=== PATIENT | male | born 1965 | race Caucasian/White ===

== ENCOUNTER 2020-05-10 10:13 | Outpatient (REF) | payer OTHER, SELFPAY ==
[2020-05-10 10:28] LABS: MANUAL DIFF FLAG NO
[2020-05-10 10:54] LABS: Basophils Percent Auto 0.5 % (0-2); Eosinophils Absolute Auto 0.3 X10*3/uL (0.0-0.4); Eosinophils Percent Auto 3.3 % (0-4); Hematocrit 43.9 % (42-52); Hemoglobin 14.2 g/dl (14.0-18.0); Imm Gran Abs Auto 0.02 X10*3/uL (0.00-0.03); Imm Gran Pct Auto 0.3 % (0.0-0.4); Lymphocytes Absolute Auto 2.5 X10*3/uL (1.2-4.9); Mean Corpuscular HGB Conc 32.3 g/dl (31.0-36.0); Mean Corpuscular Volume 92.8 fL (80-98); Mean Platelet Volume 10.1 fL (9.4-12.4); Monocytes Absolute Auto 0.8 X10*3/uL (0.1-1.2); Monocytes Percent Auto 10.7 % (2-11); Neutrophils Percent Auto 52.2 % (45-73); Platelet Count 195 X10*3/uL (160-400); Red Blood Count 4.73 X10*6/uL (4.60-5.80); Red Cell Distribution Width 13.3 % (11.0-16.0); White Blood Count 7.6 X10*3/uL (4.8-10.8)
[2020-05-10 11:15] LABS: Glucose Urine UA NEG (NEG); Leukocyte Esterase Urine NEG (NEG); Nitrite Urine NEG (NEG); PH 6.5 (5.0-8.0); Urine Blood TRACE (NEG); Urine Ketones NEG (NEG); Urine Protein NEG (NEG-TRACE)
[2020-05-10 11:18] LABS: Appearance Urine CLEAR; Color Urine YELLOW
[2020-05-10 11:21] LABS: Alanine Aminotransferase 26 U/L (0-40); Albumin Level 4.2 g/dL (3.5-5.0); Alkaline Phosphatase 56 U/L (39-117); Anion Gap 10 (12-20); Aspartate Amino Transferase 23 U/L (5-37); Bilirubin Total 1.4 mg/dL (0.0-1.0); Blood Urea Nitrogen 15 mg/dL (9-16); Calcium 9.3 mg/dL (8.4-10.2); Carbon Dioxide 33 mmol/L (22-29); Chloride 103 mmol/L (96-108); Cholesterol 190 mg/dL; Estimated Glomerular Filt Rate > 60; Glucose Fasting 78 mg/dL (60-99); HDL Cholesterol 49 mg/dL; LDL Cholesterol Calculated 117 mg/dl; Potassium 3.5 mmol/L (3.3-5.1); Sodium 142 mmol/L (135-145); Total Protein 6.7 g/dL (6.5-8.0); Triglycerides 123 mg/dL
[2020-05-10 11:42] LABS: PSA,Total (Free>4and<10) 1.49 ng/mL (0.00-4.00)
[2020-05-10 11:54] LABS: Mucus Urine 1+ /LPF; RBC Urine 0-2 /HPF (0); WBC Urine 0 /HPF (0-4)
== END 2020-05-10 10:14 | disposition home or self-care (01) ==
LOC: HO.LNP 10:13
PROVIDERS: Visit Provider Internal Medicine
DX: Z00.00 Encounter for general adult medical examination without abnormal findings (principal); I10 Essential (primary) hypertension
CPT/HCPCS: 80053; 80061; 81001; 81003; 84153; 85025

== ENCOUNTER 2021-04-10 06:27 | Day surgery (SDC) | payer OTHER, SELFPAY ==
[2021-04-03 15:35] VITALS: BMI 38.1
--- NOTE | 2021-04-07 12:52 | HO.ANESPROP2 ---
Documented by User: Doreen Raza NP 04/07/21 12:53 HPI - Anesthesia Eval Consult details Narrative: 55yo M for Colonoscopy Prednisone daily Stable with pulmo 03/2021 [facility] Past Medical History Medical History Eosinophilic fasciitis GERD (gastroesophageal reflux disease) HTN (hypertension) Hx of pulmonary fibrosis Surgical History Surgical History H/O colonoscopy History of esophagogastroduodenoscopy (EGD) History of incision and drainage Hx of cystoscopy Hx of hand surgery Hx of left inguinal hernia repair Social History Social History Patient Tobacco Use Status: Never used Tobacco Use of substances other than those prescribed or required for medical reasons: No Advance Directives: No Advance Directives Information Provided: Yes Advance Directives on File: No Meds Allergies Allergy/AdvReac Type Severity Reaction Status Date / Time morphine [MORPHINE] Allergy Severe SEVERE Verified 04/10/21 07:13 VOMITING gabapentin [GABAPENTIN] AdvReac Intermediate VISUAL Verified 04/10/21 07:13 DISTURBANCES Home Medications Medication Instructions Recorded Confirmed Last Taken Type hydroxychloroquine 200 mg tablet 200 mg PO DAILY 04/03/21 04/10/21 Unknown History (Plaquenil) irbesartan 300 1 tab PO DAILY 04/03/21 04/10/21 Unknown History mg-hydrochlorothiazide 12.5 mg tablet (Avalide) multivitamin 1 tab PO DAILY 04/03/21 04/10/21 04/09/21 History prednisone 1 mg tablet 3 mg PO DAILY 04/03/21 04/10/21 Unknown History prednisone 5 mg tablet 5 mg PO DAILY 04/03/21 04/03/21 Unknown History methylprednisolone 4 mg tablet 2 tab PO 04/10/21 04/09/21 History Exam Exam Date and Time: April 07, 2021 1252 Height,Weight and Vital Signs: Height 6 ft 1 in Weight 131.088 kg Assessment and Plan Assessment Anesthesia Assessment: Chart Reviewed Documented by User: Ben Ambrose 04/10/21 07:35 [facility] Past Medical History Medical History Eosinophilic fasciitis GERD (gastroesophageal reflux disease) HTN (hypertension) Hx of pulmonary fibrosis Family History Family history of problems with anesthesia: No Surgical History Surgical History H/O colonoscopy History of esophagogastroduodenoscopy (EGD) History of incision and drainage Hx of cystoscopy Hx of hand surgery Hx of left inguinal hernia repair History of Problems with Anesthesia: Yes (Ponv ) Social History Social History Patient Tobacco Use Status: Never used Tobacco Use of substances other than those prescribed or required for medical reasons: No Advance Directives: No Advance Directives Information Provided: Yes Advance Directives on File: No Meds Allergies Allergy/AdvReac Type Severity Reaction Status Date / Time morphine [MORPHINE] Allergy Severe SEVERE Verified 04/10/21 07:13 VOMITING gabapentin [GABAPENTIN] AdvReac Intermediate VISUAL Verified 04/10/21 07:13 DISTURBANCES Home Medications Medication Instructions Recorded Confirmed Last Taken Type hydroxychloroquine 200 mg tablet 200 mg PO DAILY 04/03/21 04/10/21 Unknown History (Plaquenil) irbesartan 300 1 tab PO DAILY 04/03/21 04/10/21 Unknown History mg-hydrochlorothiazide 12.5 mg tablet (Avalide) multivitamin 1 tab PO DAILY 04/03/21 04/10/21 04/09/21 History prednisone 1 mg tablet 3 mg PO DAILY 04/03/21 04/10/21 Unknown History prednisone 5 mg tablet 5 mg PO DAILY 04/03/21 04/03/21 Unknown History methylprednisolone 4 mg tablet 2 tab PO 04/10/21 04/09/21 History Exam Airway Mallampati Class: IV TM Dist: >3cm Neck ROM: Full Loose/Missing/Broken Teeth: Yes (Caps ) Assessment and Plan Assessment Anesthesia Assessment: Anesthesia Plan Discussed Final Anesthetic Review Family History of Problems with Anesthesia: No History of Problems with Anesthesia: Yes (Ponv ) NPO: Yes ASA Class: III Final Preanesthetic Review: Meds/Allgs Chart Reviewed and Anes Risks/Benef Reviewed Patient Risk: Intermediate Procedure Risk: Intermediate Anesthetic Plan Anesthetic Plan: MAC: Disposition: Standard PACU
[2021-04-10 06:45] VITALS: BP 142/91; PULSE 70; RESP 18; TEMP 36.2; O2SAT 98
[2021-04-10] MEDS: Lactated Ringers 1,000 ML 100 ML IVCONT (07:13)
--- NOTE | 2021-04-10 08:29 | PM.OP ---
Brief Operative Note Date of Service: 04/10/21 Pre-op diagnosis: Screening Post-op diagnosis: other (Colon polyps) Procedure: Colonoscopy to the cecum and TI with bx/removal of polyps Surgeon: Mejia Gardner Anesthesia: MAC Was an Spool Sorter used for this Procedure?: No Estimated blood loss (mL): 2.0 Pathology: other (A. Transverse colon polyps) Condition: stable Disposition: PACU
[2021-04-10 08:30] VITALS: BP 122/72; PULSE 59; RESP 17; TEMP 36.8; O2SAT 98
[2021-04-10 08:45] VITALS: BP 130/72; PULSE 63; RESP 16; TEMP 36.8; O2SAT 98
--- NOTE | 2021-04-10 10:00 | OP_ITS ---
SURGEON: Mejia Gardner MD INDICATIONS: The patient presents for evaluation of colorectal cancer screening and personal history of tubular adenoma of the colon. Full consent has been obtained from him for this, including risks of bleeding and perforation. PREOPERATIVE DIAGNOSIS: POSTOPERATIVE DIAGNOSIS: PROCEDURE PERFORMED: Colonoscopy to cecum and terminal ileum with biopsy and removal of polyps. ESTIMATED BLOOD LOSS: COMPLICATIONS: ANESTHESIA: medication used, monitored anesthesia care. ASSISTANTS: SPECIMENS: PREOPERATIVE DIAGNOSES: Colorectal cancer screening and personal history of tubular adenoma of the colon. POSTOPERATIVE DIAGNOSES: Colorectal cancer screening and personal history of tubular adenoma of the colon, small colon polyps, diverticulosis, and internal hemorrhoids. DESCRIPTION OF PROCEDURE: The patient was placed in the left lateral decubitus position the digital rectal exam revealed no abnormalities. The Olympus video pediatric colonoscope was entered into the rectum and advanced easily to the cecum. Once in the cecum I did identify normal-appearing cecal pouch with appendiceal orifice and a normal-appearing ileocecal valve. The terminal ileum was cannulated and appeared normal. The scope was withdrawn back in the colon. The entire cecum and ileocecal valve appeared normal. The scope was slowly withdrawn assessing all mucosal surfaces carefully. Preparation was excellent. In the transverse colon were 2 flat approximately 3 or 4 mm polyps, which were each biopsied and completely removed with cold biopsy forceps. I did not visualize any other polyps, colitis, nor angiodysplasia. There was a mild amount of sigmoid diverticulosis. In the rectum, the scope was retroflexed visualizing internal hemorrhoids, but no other pathology. The rectal mucosa appeared normal. The scope was straightened and withdrawn from the patient. He tolerated the procedure well and was returned to the recovery area in stable condition. IMPRESSION: 1. Small colon polyps, status post biopsy and removal. 2. Diverticulosis. 3. Internal hemorrhoids. PLAN: The results of biopsy will be checked. I would recommend a repeat colonoscopy in 5 years for further screening. He will otherwise see me on a p.r.n. basis. MD ZABRINA Livingston/JUAN M / [phone]
== END 2021-04-10 09:12 | disposition home or self-care (01) ==
PROVIDERS: PCP Internal Medicine; Visit Provider Internal Medicine
PROC: 0DJD8ZZ Inspection of Lower Intestinal Tract, Via Natural or Artificial Opening Endoscopic (ICD-10-PCS; CPT 45378; principal; 2021-04-10 07:30)
DX: Z12.11 Encounter for screening for malignant neoplasm of colon (principal); Z86.010 Personal history of colon polyps; D12.3 Benign neoplasm of transverse colon; K57.30 Diverticulosis of large intestine without perforation or abscess without bleeding; K64.8 Other hemorrhoids; K21.9 Gastro-esophageal reflux disease without esophagitis; J84.10 Pulmonary fibrosis, unspecified; I10 Essential (primary) hypertension; M35.4 Diffuse (eosinophilic) fasciitis; Z79.52 Long term (current) use of systemic steroids; Z79.899 Other long term (current) drug therapy; Z88.8 Allergy status to other drugs, medicaments and biological substances
CPT/HCPCS: 45380; 88305

== ENCOUNTER 2021-05-18 10:43 | Outpatient (REF) | payer OTHER, SELFPAY ==
[2021-05-18 10:47] LABS: MANUAL DIFF FLAG NO
[2021-05-18 11:28] LABS: Appearance Urine CLEAR; Basophils Percent Auto 0.4 % (0-2); Color Urine YELLOW; Eosinophils Absolute Auto 0.1 X10*3/uL (0.0-0.4); Eosinophils Percent Auto 1.6 % (0-4); Glucose Urine UA NEG (NEG); Hematocrit 44.1 % (42.0-52.0); Hemoglobin 14.5 g/dl (14.0-18.0); Imm Gran Abs Auto 0.03 X10*3/uL (0.00-0.03); Imm Gran Pct Auto 0.4 % (0.0-0.4); Leukocyte Esterase Urine NEG (NEG); Lymphocytes Absolute Auto 1.8 X10*3/uL (1.2-4.9); Lymphocytes Percent Auto 22.9 % (20-40); Mean Corpuscular HGB Conc 32.9 g/dl (31.0-36.0); Mean Corpuscular Hemoglobin 30.6 pg (27.0-33.0); Mean Platelet Volume 10.6 fL (9.4-12.4); Monocytes Absolute Auto 0.8 X10*3/uL (0.1-1.2); Monocytes Percent Auto 10.6 % (2-11); Neutrophils Absolute Auto 5.1 x10*3/uL (2.0-8.3); Neutrophils Percent Auto 64.1 % (45-73); Nitrite Urine NEG (NEG); Platelet Count 180 X10*3/uL (160-400); Red Blood Count 4.74 X10*6/uL (4.60-5.80); Red Cell Distribution Width 13.6 % (11.0-16.0); Specific Gravity - Urine 1.025 (1.005-1.025); Urine Blood NEG (NEG); Urine Ketones NEG (NEG); Urine Protein NEG (NEG-TRACE); White Blood Count 7.9 X10*3/uL (4.8-10.8)
[2021-05-18 11:56] LABS: Alanine Aminotransferase 30 U/L (0-40); Albumin Level 4.3 g/dL (3.5-5.0); Alkaline Phosphatase 58 U/L (39-117); Anion Gap 14 (12-20); Aspartate Amino Transferase 23 U/L (5-37); Bilirubin Total 1.9 mg/dL (0.0-1.0); Blood Urea Nitrogen 11 mg/dL (9-16); Calcium 9.8 mg/dL (8.4-10.2); Carbon Dioxide 29 mmol/L (22-29); Chloride 103 mmol/L (96-108); Cholesterol 190 mg/dL; Estimated Glomerular Filt Rate > 60; Glucose Random 81 mg/dL (60-115); HDL Cholesterol 50 mg/dL; LDL Cholesterol Calculated 119 mg/dl; Potassium 3.8 mmol/L (3.3-5.1); Sodium 142 mmol/L (135-145); Total Protein 6.8 g/dL (6.5-8.0); Triglycerides 108 mg/dL
[2021-05-18 12:03] LABS: PSA,Total (Free>4and<10) 1.17 ng/mL (0.00-4.00)
== END 2021-05-18 10:44 | disposition home or self-care (01) ==
LOC: HO.LNP 10:43
PROVIDERS: Visit Provider Internal Medicine
DX: Z00.00 Encounter for general adult medical examination without abnormal findings (principal); Z12.5 Encounter for screening for malignant neoplasm of prostate; I25.10 Atherosclerotic heart disease of native coronary artery without angina pectoris; I10 Essential (primary) hypertension
CPT/HCPCS: 80053; 80061; 81003; 84153; 85025

== ENCOUNTER 2022-05-22 11:36 | Outpatient (REF) | payer OTHER, SELFPAY ==
[2022-05-22 11:42] LABS: MANUAL DIFF FLAG NO
[2022-05-22 12:01] LABS: Basophils Absolute Auto 0.1 X10*3/uL (0.0-0.2); Basophils Percent Auto 0.6 % (0-2); Eosinophils Absolute Auto 0.2 X10*3/uL (0.0-0.4); Eosinophils Percent Auto 3.1 % (0-4); Hematocrit 44.3 % (42.0-52.0); Hemoglobin 14.5 g/dl (14.0-18.0); Imm Gran Abs Auto 0.03 X10*3/uL (0.00-0.03); Imm Gran Pct Auto 0.4 % (0.0-0.4); Lymphocytes Percent Auto 37.8 % (20-40); Mean Corpuscular HGB Conc 32.7 g/dl (31.0-36.0); Mean Corpuscular Hemoglobin 30.5 pg (27.0-33.0); Mean Corpuscular Volume 93.1 fL (80.0-98.0); Mean Platelet Volume 10.6 fL (9.4-12.4); Monocytes Absolute Auto 0.9 X10*3/uL (0.1-1.2); Monocytes Percent Auto 11.1 % (2-11); Neutrophils Absolute Auto 3.7 x10*3/uL (2.0-8.3); Platelet Count 187 X10*3/uL (160-400); Red Blood Count 4.76 X10*6/uL (4.60-5.80); Red Cell Distribution Width 13.2 % (11.0-16.0); White Blood Count 7.9 X10*3/uL (4.8-10.8)
[2022-05-22 12:09] LABS: Appearance Urine Clear; Color Urine Yellow; Glucose Urine UA Negative (Negative); Leukocyte Esterase Urine Negative (Negative); Nitrite Urine Negative (Negative); Urine Blood Negative (Negative); Urine Ketones Negative (Negative); Urine Protein Negative (Neg-Trace)
[2022-05-22 12:12] LABS: Bacteria Urine None Seen (None Seen); Hyaline Casts Urine 0-2 /LPF (0-2); RBC Urine 0-2 /HPF (0-2); Squamous Epithelial Cell Urine 0-2 /HPF (0-2); WBC Urine 0-5 /HPF (0-5)
[2022-05-22 13:08] LABS: Alanine Aminotransferase 34 U/L (0-40); Albumin Level 4.1 g/dL (3.5-5.0); Alkaline Phosphatase 52 U/L (39-117); Anion Gap 13 (12-20); Aspartate Amino Transferase 26 U/L (5-37); Bilirubin Total 1.9 mg/dL (0.0-1.0); Blood Urea Nitrogen 14 mg/dL (9-16); Calcium 9.1 mg/dL (8.4-10.2); Carbon Dioxide 30 mmol/L (22-29); Chloride 104 mmol/L (96-108); Cholesterol 217 mg/dL; Estimated Glomerular Filt Rate > 60; Glucose Fasting 80 mg/dL (60-99); HDL Cholesterol 51 mg/dL; LDL Cholesterol Calculated 140 mg/dl; Potassium 3.7 mmol/L (3.3-5.1); Sodium 143 mmol/L (135-145); Total Protein 6.4 g/dL (6.5-8.0); Triglycerides 131 mg/dL
[2022-05-22 13:23] LABS: PSA,Total (Free>4and<10) 1.51 ng/mL (0.00-4.00)
== END 2022-05-22 11:37 | disposition home or self-care (01) ==
LOC: HO.LNP 11:36
PROVIDERS: Visit Provider Internal Medicine
DX: Z00.00 Encounter for general adult medical examination without abnormal findings (principal); Z12.5 Encounter for screening for malignant neoplasm of prostate; I10 Essential (primary) hypertension; I25.10 Atherosclerotic heart disease of native coronary artery without angina pectoris
CPT/HCPCS: 80053; 80061; 81001; 84153; 85025

== ENCOUNTER 2022-08-31 12:11 | Outpatient (REF) | payer OTHER, SELFPAY ==
[2022-08-31 12:32] LABS: Alanine Aminotransferase 52 U/L (0-40); Albumin Level 3.2 g/dL (3.5-5.0); Alkaline Phosphatase 56 U/L (39-117); Aspartate Amino Transferase 32 U/L (5-37); Bilirubin Direct 0.4 mg/dL (0.0-0.5); Bilirubin Total 1.4 mg/dL (0.0-1.0); Cholesterol 124 mg/dL; HDL Cholesterol 38 mg/dL; LDL Cholesterol Calculated 70 mg/dl; Triglycerides 80 mg/dL
== END 2022-08-31 12:12 | disposition home or self-care (01) ==
LOC: HO.LNP 12:11
PROVIDERS: Visit Provider Internal Medicine
DX: I25.10 Atherosclerotic heart disease of native coronary artery without angina pectoris (principal)
CPT/HCPCS: 80061; 80076

== ENCOUNTER 2023-03-08 10:13 | Outpatient (REF) | payer OTHER, SELFPAY | END 2023-03-08 10:14 | disposition home or self-care (01) | LOC: HO.LNP 10:13 | PROVIDERS: Visit Provider Internal Medicine | DX: E78.00 Pure hypercholesterolemia, unspecified (principal) | CPT/HCPCS: 80061; 80076 ==

== ENCOUNTER 2023-05-28 10:56 | Outpatient (REF) | payer OTHER, SELFPAY ==
[2023-05-28 11:00] LABS: MANUAL DIFF FLAG NO
[2023-05-28 11:34] LABS: Basophils Percent Auto 0.4 % (0-2); Eosinophils Absolute Auto 0.2 X10*3/uL (0.0-0.4); Eosinophils Percent Auto 2.8 % (0-4); Hematocrit 41.5 % (42.0-52.0); Hemoglobin 13.9 g/dl (14.0-18.0); Imm Gran Abs Auto 0.02 X10*3/uL (0.00-0.03); Imm Gran Pct Auto 0.3 % (0.0-0.4); Lymphocytes Absolute Auto 2.1 X10*3/uL (1.2-4.9); Lymphocytes Percent Auto 27.2 % (20-40); Mean Corpuscular HGB Conc 33.5 g/dl (31.0-36.0); Mean Corpuscular Hemoglobin 30.7 pg (27.0-33.0); Mean Corpuscular Volume 91.6 fL (80.0-98.0); Mean Platelet Volume 10.6 fL (9.4-12.4); Monocytes Absolute Auto 0.9 X10*3/uL (0.1-1.2); Monocytes Percent Auto 11.3 % (2-11); Neutrophils Absolute Auto 4.5 x10*3/uL (2.0-8.3); Platelet Count 179 X10*3/uL (160-400); Red Blood Count 4.53 X10*6/uL (4.60-5.80); Red Cell Distribution Width 13.1 % (11.0-16.0); White Blood Count 7.8 X10*3/uL (4.8-10.8)
[2023-05-28 11:39] LABS: Appearance Urine Clear; Color Urine Yellow; Glucose Urine UA Negative (Negative); Leukocyte Esterase Urine Negative (Negative); Nitrite Urine Negative (Negative); Urine Blood Negative (Negative); Urine Ketones Negative (Negative); Urine Protein Negative (Neg-Trace)
[2023-05-28 11:42] LABS: Alanine Aminotransferase 27 U/L (0-40); Alkaline Phosphatase 61 U/L (39-117); Anion Gap 13 (12-20); Aspartate Amino Transferase 25 U/L (5-37); Bilirubin Total 1.6 mg/dL (0.0-1.0); Blood Urea Nitrogen 16 mg/dL (9-16); Calcium 9.7 mg/dL (8.4-10.2); Carbon Dioxide 32 mmol/L (22-29); Chloride 103 mmol/L (96-108); Cholesterol 149 mg/dL (<200); Estimated Glomerular Filt Rate > 60; Glucose Fasting 81 mg/dL (60-99); HDL Cholesterol 54 mg/dL (>40); LDL Cholesterol Calculated 76 mg/dL (<100); Potassium 3.5 mmol/L (3.3-5.1); Sodium 144 mmol/L (135-145); Total Protein 6.6 g/dL (6.5-8.0); Triglycerides 98 mg/dL (<150)
[2023-05-28 11:44] LABS: Bacteria Urine None Seen (None Seen); Hyaline Casts Urine 0-2 /LPF (0-2); RBC Urine 0-2 /HPF (0-2); Squamous Epithelial Cell Urine 0-2 /HPF (0-2); WBC Urine 0-5 /HPF (0-5)
[2023-05-28 11:57] LABS: PSA,Total (Free>4and<10) 1.46 ng/mL (0.00-4.00)
== END 2023-05-28 10:57 | disposition home or self-care (01) ==
LOC: HO.LNP 10:56
PROVIDERS: Visit Provider Internal Medicine
DX: Z12.5 Encounter for screening for malignant neoplasm of prostate (principal); I10 Essential (primary) hypertension; I25.10 Atherosclerotic heart disease of native coronary artery without angina pectoris; E78.00 Pure hypercholesterolemia, unspecified
CPT/HCPCS: 80053; 80061; 81001; 84153; 85025

== ENCOUNTER 2023-12-05 11:29 | Outpatient (REF) | payer OTHER, SELFPAY ==
[2023-12-05 12:33] LABS: Alanine Aminotransferase 32 U/L (0-40); Albumin Level 4.1 g/dL (3.5-5.0); Alkaline Phosphatase 52 U/L (39-117); Aspartate Amino Transferase 27 U/L (5-37); Bilirubin Direct 0.5 mg/dL (0.0-0.5); Bilirubin Total 1.8 mg/dL (0.0-1.0); Cholesterol 143 mg/dL (<200); HDL Cholesterol 55 mg/dL (>40); LDL Cholesterol Calculated 67 mg/dL (<100); Total Protein 6.8 g/dL (6.5-8.0); Triglycerides 106 mg/dL (<150)
[2023-12-05 12:57] LABS: Reflex LDLD? No
== END 2023-12-05 11:30 | disposition home or self-care (01) ==
LOC: HO.LNP 11:29
PROVIDERS: Visit Provider Internal Medicine
DX: E78.00 Pure hypercholesterolemia, unspecified (principal)
CPT/HCPCS: 80061; 80076

== ENCOUNTER 2024-04-21 09:51 | Outpatient (REF) | payer OTHER, SELFPAY ==
--- OUTSIDE RECORDS SUMMARY | 2024-04-21 10:35 | XMS_ITS | Clinical Summary ---
Author Organization [facility] Address [address] [place] [address] Phone Care Team Providers Care Fuel Cell Builder Name Role Phone Javed Gonzales MD Primary Care Provider Unav ailable Allergies Active Allergy Reactions Criticality Noted Date Comments Cyclobenzaprine 08/06/2023 Other reaction(s): Blurry vision Gabapentin 11/23/2021 Other reaction(s): Blurry vision Iodinated Contrast Media Unknown 03/11/2012 Morphine Sulfate 03/11/2012 Pregabalin 07/09/2017 Other reaction(s): Blurry vision Had difficulty focusing and seeing well Had difficulty focusing and seeing well Medications CALCIUM CARBONATE-VITAM IN D3 ORAL Take 1 Tablet by mouth. Active multivitamin (MULTIPLE VITAMINS ORAL) Take 1 capsule by mouth. Active valsartan-hydro CHLOROthiazide (DIOVAN-HCT) 320-12.5 mg per tablet Diovan HCT 320-12.5 MG Oral Tablet TAKE 1 TABLET ONCE DAILY. Refills: 0 Started -Nov-2008 Active 11/02/2008 Active atorvastatin (LIPITOR) 40 mg tablet Take 1 Tablet by mouth daily. Active aliskiren-hydro chlorothiazide 300-12.5 mg tablet Take by mouth. Active hydroxychloroqu ine (PLAQUENIL) 200 mg tablet Take 200 mg by mouth daily. Active methylPREDNISol one (MEDROL) 8 mg tablet Take 8 mg by mouth daily. Active Pain Relief ES, acetaminophen, 500 mg tablet TAKE 2 TABLETS BY MOUTH EVERY 8 HOURS NEEDED FOR MODERATE PAIN SCALE 4-6 2023 Active albuterol HFA (Ventolin HFA) 90 mcg/actuation inhaler 2 puffs every 6 hours. 03/15/2017 Active calcium carbonate 1,500 mg (600 mg elemental calcium) tablet 1 (one) time each day at the same time. Active doxycycline hyclate (VIBRA-TABS) 100 mg tablet Take 1 tablet (100 mg total) by mouth 2 times daily. 08/05/2017 Active Valium 2 mg tablet 1 tablet (2 mg total) every 12 hours. Max Daily Amount: 4 mg 07/04/2023 Active fluconazole (Diflucan) 150 mg tablet 2 tablets (300 mg total). 12/21/2019 Active ibuprofen (ADVIL,MOTRIN) 800 mg tablet 1 tablet (800 mg total) every 8 hours. 06/23/2013 Active irbesartan-hydr oCHLOROthiazide (Avalide) 300-12.5 mg per tablet Take 1 tablet by mouth. 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 Pain of right calf 04/07/2015 Edema of left lower extremity 10/05/2014 IPF (idiopathic pulmonary fibrosis) 03/16/2013 Hypertension 12/13/2008 Morphea 12/13/2008 Open wound of shoulder region 12/13/2008 Pneumonia 12/13/2008 Vitamin D deficiency 11/04/2008 Fasciitis 11/02/2008 Immunizations Name Administration Dates Next Due Influenza Quadrivalent, 0.5m l, preservative free (Fluarix; FluLaval; Fluzone) ages 6mo and older (Afluria) 3yo and older 12/13/2022 Influenza trivalent, 0.5mL, preservative free (Fluarix; FluLaval; Fluzone) ages 6mo and older (Afluria) 3 years and older 12/23/2001,02/10/2001,01/24/1999,12/18 Pneumococcal polysaccharide 23 valent (Pneumovax 23) 2yo and older 06/25/1995 Surgical History Surgery Date Site/Laterality Comments OTHER SURGICAL HISTORY PROCEDURE: HISTORICAL ARM SURGERY; COMMENT: right arm Medical History Medical History Date Comments HTN (hypertension) DX:HTN (hyper tension) Social History Tobacco Use Types Packs/Day Years Used Date Smoking Tobacco: Never Smokeless Tobacco: Never Alcohol Use Standard Drinks/Week Comments Yes 0.8 (1 standard drink = 0.6 oz p ure alcohol) Sex and Gender Information Value Date Recorded Sex Assigned at Not on file Legal Sex Male 3:04 AM EST Gender Identity Not on file Sexual Orientation Not on file Obstetrics History Last Filed Vital Signs Vital Sign Reading Time Taken Comments Blood Pressure 137/71 04/12/2023 8:53 AM EST Pulse 67 04/12/2023 8:53 AM EST Temperature - - Respiratory Rate - - Oxygen Saturation - - Inhaled Oxygen Concentration - - Weight 135 kg (298 lb) 09/17/2023 10:15 AM EDT Height 188 cm (6' 2 ) 09/17/2023 10:15 AM EDT Body Mass Index 38.26 09/17/2023 10:15 AM EDT Plan of Treatment Health Maintenance Due Date Last Done Comments DTaP,Tdap,and Td Vaccines (1 - Tdap) 1984 Hepatitis B Vaccines (1 of 3 - 19+ 3-dose series) 1984 Pneumococcal Vaccine: 50+ Years (2 of 2 - PCV) 06/24/1996 06/25/1995 Pneumococcal Vaccine: Pediatrics (0 to 5 Years) and At-Risk Patients (6 to 64 Years) (2 of 2 - PCV) 06/24/1996 06/25/1995 Zoster Vaccines (1 of 2) 05/11/2015 COVID-19 Vaccine (3 - Moderna risk series) 06/21/2020 05/24/2020, 04/26/2020 Cholesterol Screening (Lipid Panel) 02/04/2022 Colorectal Cancer Screening: Colonoscopy 02/04/2022 Depression Screening 02/04/2022 HIV Screening 02/04/2022 Hepatitis C Screening 02/04/2022 Social Influencers of Health Screening 02/04/2022 Influenza Vaccine (#1) 2023 , 12/23/2001, 02/10/2001, Additional history exists Hypertension/CHF/CAD Annual BMP Blood Test 01/06/2024 12/13/2022, 12/13/2022 HIB Vaccines Aged Out No longer eligi ble based on patient's age to complete this topic HPV Vaccines Aged Out No longer eligi ble based on patient's age to complete this topic Hepatitis A Vaccines Aged Out No long er eligible based on patient's age to complete this topic IPV Vaccines Aged Out No longer eligi ble based on patient's age to complete this topic MMR Vaccines Aged Out No longer eligi ble based on patient's age to complete this topic Meningococcal ACWY Vaccine Aged Out N o longer eligible based on patient's age to complete this topic Meningococcal B Vacine Aged Out No lo nger eligible based on patient's age to complete this topic RSV Immunization Patients Under 20 months Aged Out No longer eligible based on patient's age to complete this topic Varicella Vaccines Aged Out No longer eligible based on patient's age to complete this topic Procedures Procedure Name Priority Date/Time Associated Diagnosis Comments ANNUAL BMP BLOOD TEST Routine 12/13/2022 from Last 3 Months or Most Recently Relevant to Health Maintenance Results * Annual BMP Blood Test (12/13/2022) Annual BMP Blood Test Abstracted Historical Provider MD HEALTH MAINTENANCE Final Result from Last 3 Months or Most Recently Relevant to Health Maintenance Insurance [facility] [employer] Advance Directives Documents on File Type Date Recorded Patient Cytology Laboratory Manager Expl anation Health Care Decision (hx) 12/26/2020 AD SCOTT DIRECTIVE Health Care Decision (hx) 12/26/2020 AD SCOTT DIRECTIVE Health Care Decision (hx) 12/26/2020 AD SCOTT DIRECTIVE Health Care Decision (hx) 12/26/2020 AD SCOTT DIRECTIVE Health Care Decision (hx) 12/26/2020 AD SCOTT DIRECTIVE Health Care Decision (hx) 12/26/2020 AD SCOTT DIRECTIVE Health Care Decision (hx) 12/26/2020 AD SCOTT DIRECTIVE Health Care Decision (hx) 12/26/2020 AD SCOTT DIRECTIVE Care Teams Fuel Cell Builder Relationship Specialty Start Date End Date Javed Gonzales MD [address] [place] [address] PCP - General Internal Medicine 03/11/12
--- OUTSIDE RECORDS SUMMARY | 2024-04-21 10:35 | XMS_ITS | Clinical Summary ---
Author Organization [facility] Address [address] [place] [address] Care Team Providers Care Night Clerk Name Role Phone Javed Gonzales Primary Care Provider [phone] Allergies Active Allergy Reactions Criticality Noted Date Comments Cyclobenzaprine Blurry vision Dye Unknown 03/11/2012 Gabapentin Blurry vision 11/23/2021 Morphine Dermatitis,Headache 04/17/2017 Turn martin and very sick SKIN ANOMALY NEC Pregabalin Blurry vision 07/09/2017 Had difficulty focusing and seeing well Medications valsartan-hydr ochlorothiazid e (DIOVAN-HCT) 320-12.5 mg per tablet Diovan HCT 320-12.5 MG Oral Tablet TAKE 1 TABLET ONCE DAILY. Refills: 0 Started -Nov-2008 Active 9 Active calcium carbonate-heidi min D3 600 mg(1,500mg) -200 unit per tablet Take 1 tablet by mouth 2 times a day, 2 times a week. Active multivitamin capsule Take 1 capsule by mouth daily. Active atorvastatin (LIPITOR) 40 mg tablet Take 20 mg by mouth once a day. 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 Olecranon bursitis, left elbow 03/11/2017 residential current use of systemic steroids 10/12 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 Pain of right calf 04/07/2015 Edema of left lower extremity 10/05/2014 IPF (idiopathic pulmonary fibrosis) 03/16/2013 Open Wound Of The Shoulder 12/13/2008 Hypertension 12/13/2008 Morphea 12/13/2008 Pneumonia 12/13/2008 Vitamin d deficiency 11/04/2008 Fasciitis 11/02/2008 Encounters Date Type Department Care Team Description 03/29/2024 Refill [facility] [address] [place] [address] Electronic Bench Technician: Kam Gutiérrez DO from Last 3 Months Immunizations Immunization Administration Dates Next Due INFLUENZA, SPLIT VIRUS, TRIVALENT, PF ,02/10/2001,01/24/1999,12/18 Influenza, Injectable, Quadr ivalent, Preservative Free 12/13/2022 Pneumococcal Polysaccharide Vaccine, 23 Valent 06/25/1995 Family History Medical History Relation Name Comments Other Brother Family History of seizures Other Father Family History of lung cancer Other Mother Family History of lung cancer Other Paternal Grandmother Family History of rheumatoid arthritis Relation Name Status Comments Brother Father Mother Paternal Grandmother Social History Tobacco Use Types Packs/Day Years Used Date Smoking Tobacco: Never Passive Smoke Exposure: Never Smokeless Tobacco: Never Tobacco Cessation:Counseling Given: Not Answered Comments:: Alcohol Use Standard Drinks/Week Comments Not Currently 0 (1 standard drink = 0.6 oz pur e alcohol) Sex and Gender Information Value Date Recorded Sex Assigned at Male 03/12/2022 5:45 AM EST Legal Sex Male 7:17 AM EDT Gender Identity Male 03/12/2022 5:45 AM EST Sexual Orientation Straight 03/12/2022 5: 45 AM EST Last Filed Vital Signs Vital Sign Reading Time Taken Comments Blood Pressure 133/85 12/31/2023 4:20 PM EDT Pulse 71 12/31/2023 4:20 PM EDT Temperature 36.4 ??C (97.6 ??F) 12/31/2023 4:20 PM ED T Respiratory Rate - - Oxygen Saturation 95% 10/26/2013 2:59 PM EDT Inhaled Oxygen Concentration - - Weight 132 kg (291 lb) 12/31/2023 4:20 PM EDT Height 188 cm (6' 2 ) 12/31/2023 4:20 PM EDT Body Mass Index 37.36 12/31/2023 4:20 PM EDT Plan of Treatment Upcoming Encounters Date Type Department Care Team (Late st Contact Info) Description 07/03/2024 11:20 AM EDT Office Visit [facility] [address] [place] [address] Electronic Bench Technician: Kam Gutiérrez DO [address] [facility] Rheumtology [place], [place] [id number] Health Maintenance Due Date Last Done Comments Cologuard 1965 Colon Cancer Screening 1965 Colonoscopy 1965 FOBT / Fit Test 1965 HIV Screening 1965 Hepatitis C Screening 1965 Sigmoidoscopy 1965 Hepatitis B Vaccines (1 of 3 - 19+ 3-dose series) 1984 Pneumococcal Vaccine: 50+ Ye ars (2 of 2 - PCV) 04/13/2020 04/13/2019, 06/25/1995 Pneumococcal Vaccine: Pediat jose c (0-5 Years) and At-Risk Patients (6-50 Years) (2 of 2 - PCV) 04/13/2020 04/13/2019, 06/25/1995 Basic Metabolic Panel 12/14/2023 12/13/2022, 018 DTaP,Tdap,and Td Vaccines (2 - Tdap) 02/05/2024 02/04/2014 Alcohol/Substance Use Screening 03/04/2024 Depression Screening and Follow-Up 03/04/2024 Social Drivers of Health Maya ual Screening 03/04/2024 RSV Vaccine (60+ years old a nd patients) (1 - 1-dose 75+ series) 2040 Zoster Vaccines Completed 12/28/2022, 09/14/2022 COVID-19 Vaccine Completed 11/16/2023, , 12/01/2022, Additional history exists Influenza Vaccine Completed 11/16/2023, , 11/23/2021, Additional history exists Procedures * Due to [facility] law, this organization might not be sharing negative HIV tests. Procedure Name Priority Date/Time Associated Diagnosis Comments BASIC METABOLIC PANEL Routine 12/13/2022 10:02 AM EDT Diffuse fasciitis from Last 3 Months or Most Recently Relevant to Health Maintenance Results * Due to [employer] law, this organization might not be sharing negative HIV tests. * (ABNORMAL) Basic Metabolic Panel (12/13/2022 10:02 AM EDT) NA 141 135 - 145 mmol/L 12/13/2022 11:20 AM EDT [facility] K 3.6 3.5 - 5.3 mmol/L 12/13/2022 11:20 AM EDT [facility] Cl 103 97 - 110 mmol/L 12/13/2022 11:20 AM EDT [facility] CO2 33(H) 24 - 32 mmol/L 12/13/2022 11:20 AM EDT [facility] BUN 13 7 - 23 mg/dL 12/13/2022 11:20 AM EDT [facility] Creatinine 0.68 0.60 - 1.30 mg/dL 12/13/2022 11:20 AM EDT [facility] Glucose 78 70 - 99 mg/dL 12/13/2022 11:20 AM EDT [facility] Calcium 9.5 8.7 - 10.7 mg/dL 12/13/2022 11:20 AM EDT [facility] Anion Gap 5 5 - 15 12/13/2022 11:20 AM EDT [facility] eGFR >90 >=60 mL/min/1. 73m2 12/13/2022 11:20 AM EDT [facility] Comment:The estimated glomer ular filtration rate (eGFR) is calculated using a new formula developed by the NKF-ASN task force to eliminate race-based correction factors. The new formula uses serum/plasma creatinine, age, and gender to determine eGFR. A value below 60mls/min might indicate kidney disease and will be flagged. For additional information, see Shreyas et al, Am J Kidney Dis. 2021;79(2):268- 288, A Unifying Approach for GFR estimation: Recommendations of the NKF-ASN Task Force on Reassessing the Inclusion of Race in Diagnosing Kidney Disease . Blood Structure of peripheral vein / Unknown Venipuncture / Unknown 12/13/2022 10:02 AM EDT 12/13/2022 10:45 AM EDT us Lana Salas MD LAB BLOOD ORDERABLES Final Resul t [facility] [address] [place] [address], from Last 3 Months or Most Recently Relevant to Health Maintenance Insurance [employer] Care Teams Night Clerk Relationship Specialty Start Date End Date Javed Gonzales [address] [place] [address] [place] [address] [facility] - General 09/20/16
--- OUTSIDE RECORDS SUMMARY | 2024-04-21 10:35 | XMS_ITS | Encounter Summary ---
Author Organization [facility] Address [address] [place] [address] Care Team Providers Care Hop Separator Name Role Phone Javed Gonzales Primary Care Provider [phone] Reason for Visit * Reason Comments Med Refill Encounter Details Date Type Department Care Team (Late st Contact Info) Description 03/29/2024 Refill [facility] [address] [place] [address] Trade Union Secretary: Kam Gutiérrez DO [address] [place] [address] [place] [address] Social History Tobacco Use Types Packs/Day Years Used Date Smoking Tobacco: Never Passive Smoke Exposure: Never Smokeless Tobacco: Never Comments:: Alcohol Use Standard Drinks/Week Comments Not Currently 0 (1 standard drink = 0.6 oz pur e alcohol) Sex and Gender Information Value Date Recorded Sex Assigned at Male 03/12/2022 5:45 AM EST Legal Sex Male 7:17 AM EDT Gender Identity Male 03/12/2022 5:45 AM EST Sexual Orientation Straight 03/12/2022 5: 45 AM EST documented as of this encounter Miscellaneous Notes * Telephone Encounter - Lorenzo MonBRITTANEY davis - 04/06/2024 11:22 AM EST Pt is scheduled for a follow up Future Appointments Date Time Provider Department Center 07/03/2024 11:20 AM Kam Cooney DO [facility] [place] Rx was last sent in on 10/15/23 w/ 1 refills. Last eye exam was on 01/22/23 documented in this encounter Plan of Treatment Upcoming Encounters Date Type Department Care Team (Late st Contact Info) Description 07/03/2024 11:20 AM EDT Office Visit [facility] [address] [place] [address] Trade Union Secretary: Kam Gutiérrez DO [address] [place] [address] [place] [address] documented as of this encounter Visit Diagnoses Not on filedocumented in this encounter Care Teams Hop Separator Relationship Specialty Start Date End Date Javed Gonzales [address] [place] [address] [place] [address] PCP - General 09/20/16 documented as of this encounter
--- OUTSIDE RECORDS SUMMARY | 2024-04-21 10:35 | XMS_ITS | Referral Summary ---
Author Organization [facility] Address [address] [place] [address] Care Team Providers Care Silver Designer Name Role Phone Janet Javed Primary Care Provider [phone] Encounters Date Type Department Care Team Description 03/29/2024 Refill [facility] [address] [place], [place] [id number] Lining Inserter: Kam Gutiérrez DO from Last 3 Months Allergies Active Allergy Reactions Criticality Noted Date [...] calcinosis 06/01/2018 Olecranon bursitis, left elbow 03/11/2017 senior care current use of systemic steroids 10/12 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 Pain of right calf 04/07/2015 Edema of left lower extremity 10/05/2014 IPF (idiopathic pulmonary fibrosis) 03/16/2013 Open Wound Of The Shoulder 12/13/2008 Hypertension 12/13/2008 Morphea 12/13/2008 Pneumonia 12/13/2008 Vitamin d deficiency 11/04/2008 Fasciitis 11/02/2008 Immunizations Immunization Administration Dates Next Due INFLUENZA, SPLIT VIRUS, TRIVALENT, PF ,02/10/2001,01/24/1999,12/18 Influenza, Injectable, Quadr ivalent, Preservative Free 12/13/2022 Pneumococcal Polysaccharide Vaccine, 23 Valent 06/25/1995 Social History Tobacco Use Types Packs/Day Years [...] Description 07/03/2024 11:20 AM EDT Office Visit [facility] [address] [place] [address] Lining Inserter: Kam Gutiérrez DO [address] [facility] [place] [address] Procedures * Due to [facility] law, this organization might not be sharing negative HIV tests. Procedure Name Priority Date/Time Associated Diagnosis Comments BASIC METABOLIC PANEL Routine 12/13/2022 10:02 AM EDT Diffuse fasciitis from Last 3 Months or Most Recently Relevant to Health Maintenance Results * Due to [facility] law, this organization might not be sharing negative HIV tests. * (ABNORMAL) Basic Metabolic Panel (12/13/2022 10:02 AM EDT) NA 141 135 - 145 mmol/L 12/13/2022 11:20 AM EDT [facility] K 3.6 3.5 - 5.3 mmol/L 12/13/2022 11:20 AM EDT [facility] Cl 103 97 - 110 mmol/L 12/13/2022 11:20 AM EDT [facility] CO2 33(H) 24 - 32 mmol/L 12/13/2022 11:20 AM EDT [facility] BUN 13 7 - 23 mg/dL 12/13/2022 11:20 AM EDT [facility] Creatinine 0.68 0.60 - 1.30 mg/dL 12/13/2022 11:20 AM EDT [facility] Glucose 78 70 - 99 mg/dL 12/13/2022 11:20 AM EDT [facility] Calcium 9.5 8.7 - 10.7 mg/dL 12/13/2022 11:20 AM EDT [facility] Anion Gap 5 5 - 15 12/13/2022 11:20 AM EDT [facility] eGFR >90 >=60 mL/min/1. 73m2 12/13/2022 11:20 AM EDT [facility] Comment:The estimated glomer ular filtration rate (eGFR) is calculated using a new formula developed by the NKF-ASN task force to eliminate race-based correction factors. The new formula uses serum/plasma creatinine, age, and gender to determine eGFR. A value below 60mls/min might indicate kidney disease and will be flagged. For additional information, see Pritchett et al, Am J Kidney Dis. 2021;79(2):268- 288, A Unifying Approach for GFR estimation: Recommendations of the NKF-ASN Task Force on Reassessing the Inclusion of Race in Diagnosing Kidney Disease . Blood Structure of peripheral vein / Unknown Venipuncture / Unknown 12/13/2022 10:02 AM EDT 12/13/2022 10:45 AM EDT us Lana Salas MD LAB BLOOD ORDERABLES Final Resul t [facility] [address] [place] [address], from Last 3 Months or Most Recently Relevant to Health Maintenance Insurance [facility] Care Teams Silver Designer Relationship Specialty Start Date End Date Javed Gonzales [address] [place] [address] [place] [address] PCP - General 09/20/16
--- OUTSIDE RECORDS SUMMARY | 2024-04-21 10:35 | XMS_ITS | Encounter Summary ---
Author Organization [facility] [place] [address] Care Team Providers Care Studio Technician Video Operator Name Role Phone Javed Gonzales MD Primary Care Provider Unav ailable Encounter Details Date Type Department Care Team (Late st Contact Info) Description 12/27/2023 7:55 AM EDT Hospital Encounter TH HISTORIC ENCOUNTERS [facility] CONVERSION ONLY Deshawn Cortez MD [address] [place] [id number] Social History Tobacco Use Types Packs/Day Years [...] exam (12/30/2023 12:00 AM EDT) Case Results ? SOFT TISSUE, CALCINOSIS LEFT SMALL FINGER-EXCISION: ? - SOFT TISSUE WITH CALCINOSIS (TUMORAL CALCINOSIS). ? Stacy Salas M.D. , Pathologist ? (Case electronically signed 12 30 2023) ? Pre-Op/Clinical Diagnosis: ? *CALCINOSIS LEFT SMALL FINGER ? *EOSINOPHILIC FASCIITIS ? Specimen and Site: ? SOFT TISSUE, CALCINOSIS LEFT SMALL FINGER-EXCISION ? Gross Description: ? Labeled calcinosis left small finger . ??Received in formalin with a 1.5 x 1.2 ? x 0.6 cm aggregate of rubbery, stevenson-white to pink-red tissue which has ? stevenson-white fibrotic cut surfaces with a focal yellow stippling. ??Laundry Folder ? sections are submitted in one cassette, two pieces. ? TS ? Physicians: ? DESHAWN CORTEZ M.D./CARLOS/[phone] / ? HISTORICAL TESTING LAB RESULTING AGENCY 12/30/2023 us Laboratory Results Historical MD LAB PATHOLOGY O RDERABLES Final Result HISTORICAL TESTING LAB RESULTING AGENCY documented in this encounter Visit Diagnoses Not on filedocumented in this encounter Care Teams Studio Technician Video Operator Relationship Specialty Start Date End Date Javed Gonzales MD [address] [place] [address] PCP - General Internal Medicine 03/11/12 documented as of this encounter
--- OUTSIDE RECORDS SUMMARY | 2024-04-21 10:35 | XMS_ITS ---
Author Organization Javed Gonzales MD Address [address] [place], [place] [id number] Care Team Providers Care Airport Utility Worker Name Role Phone Javed Gonzales Primary Care Provider Allergies Allergen (clinical drug ingredient) Drug/Non Drug Allergy documented on EMR Reaction Allergy Type Onset Date Status morphine Morphine Sulfate n/v Drug Allergy Active gabapentin Gabapentin (uncoded) visual disturbance Allergy Active REASON FOR VISIT 6 month Medications Medication SIG (Take, Route, Frequency, Duration) Notes Start Date End Date Status Atorvastatin Calcium 20 MG take 1 tablet by mouth every day for 30 days Orally Once a day Active Ibuprofen 800 MG 1 tablet with food or milk as needed Orally every 8 hrs Active Plaquenil 200 MG 1 tablets with food or milk Orally once a day Active Calcium 600 MG 2 tablets with meals Orally Once a day Active methylPREDNISolone 4 MG 2 tablets with f ood or milk in the morning Oral once a day Active Valium 2 MG 1 tablet as needed Orally twice a day for 7 days 07/04/2023 Active Valsartan-hydroCHLOROthiazid e 320-12.5 MG TAKE 1 TABLET DAILY Active Diflucan 150 MG 2 tablets Orally once and repeat in oneweek for 2 days 12/21/2019 Not-Taking Ventolin HFA 108 (90 Base) MCG/ACT 2 puffs as needed Inhalation every 6 hrs for 30 days 03/15/2017 Not-Taking Ibuprofen 800 MG 1 tablet Orally Three times a day for 30 06/23/2013 Not-Taking Vital Signs Blood pressure systolic 120 mm Hg 12/13/19 24 Blood pressure diastolic 65 mm Hg 024 Height 74.25 in 12/13/2023 Weight 294 lbs 12/13/2023 BMI 37.49 kg/m2 12/13/2023 Encounters Encounter Location Date Provider Diagnosis Javed Gonzales MD [address] [place] [phone] 12/13/2023 Javed Gonzales Essential hypertensi on I10 and Hypercholesteremia E78.00 Assessments Encounter Date Diagnosis (ICD Code) Assessment Notes Treatment Notes Treatment Clinical Notes Section Notes 12/13/2023 Essential hypertensi on (ICD-10 - I10) well controlled on meds 12/13/2023 Hypercholesteremia (ICD-10 - E78.00) well controlled on meds Plan Of Treatment Medication Medication Name Sig Start Date Stop Date Notes Atorvastatin Calcium 20 MG take 1 tablet by mouth every day for 30 days Orally Once a day Valsartan-hydroCHLOROthiazid e 320-12.5 MG TAKE 1 TABLET DAILY Treatment Notes Assessment Notes Essential hypertension well controlled o n meds Hypercholesteremia well controlled on m eds Next Appt Details Provider Name:Javed Amaro iepernell, 06/01/2024 08:00:00 AM, [address] [place] [address], [address], [phone], Provider Name:Javed Amaro ier, 06/08/2024 08:30:00 AM, [address] [place] [address], [place] [address], [place], [place], [phone], Progress Notes * Jeremías CANTOR PDOB:1965 (58 yo M)Acc No.[id number]:12/13/2023 Progress Notes Patient:?Jeremías Cantor Provider:?Javed Gonzales MD :1965???Age:58 Y???Sex:Male Jakob e:12/13/2023 Address: [address], [place], [place] Subjective: * Chief Complaints: * ???6 month * HPI: ???Symptom(s):? patient is a 58 yo male here for 6 month follow up of bp. * ROS:?General/Constitutional:?Denies?Chills.?Denies?Fatigue.?Denies?Fever.?Denies?Headache.?ENT:?Patient denies?decreased sense of smell , any loss of taste , sore throat.?Denies?Sore throat.?Respiratory:?Denies?Cough.?Denies?Shortness of breath at rest.?Denies?Shortness of breath with exertion.?Gastrointestinal:?Denies?Diarrhea.?Denies?Nausea.?Musculoskeletal:?Patient denies?muscle aches.?Peripheral Vascular:?Patient denies?red and blue toes.? * Medical History:? * Surgical History:? * Hospitalization/Major Diagno stic Procedure:? * Medications:?TakingIbuprofen 800 MG Tablet 1 tablet with food or milk as needed Orally every 8 hrsCalcium 600 MG Tablet 2 tablets with meals Orally Once a dayPlaquenil 200 MG Tablet 1 tablets with food or milk Orally once a daymethylPREDNISolone 4 MG Tablet 2 tablets with food or milk in the morning Oral once a dayValsartan-hydroCHLOROthiazide 320-12.5 MG Tablet TAKE 1 TABLET DAILY Valium 2 MG Tablet 1 tablet as needed Orally twice a dayAtorvastatin Calcium 20 MG Tablet take 1 tablet by mouth every day for 30 days Orally Once a dayTaking Ibuprofen 800 MG Tablet 1 tablet with food or milk as needed Orally every 8 hrsTaking Calcium 600 MG Tablet 2 tablets with meals Orally Once a dayTaking Plaquenil 200 MG Tablet 1 tablets with food or milk Orally once a dayTaking methylPREDNISolone 4 MG Tablet 2 tablets with food or milk in the morning Oral once a dayTaking Valsartan- hydroCHLOROthiazide 320-12.5 MG Tablet TAKE 1 TABLET DAILY Taking Valium 2 MG Tablet 1 tablet as needed Orally twice a dayTaking Atorvastatin Calcium 20 MG Tablet take 1 tablet by mouth every day for 30 days Orally Once a dayNot-Taking/PRNDiflucan 150 MG Tablet 2 tablets Orally once and repeat in oneweekIbuprofen 800 MG Tablet 1 tablet Orally Three times a dayVentolin HFA 108 (90 Base) MCG/ACT Aerosol Solution 2 puffs as needed Inhalation every 6 hrsMedication List reviewed and reconciled with the patientNot- Taking/PRN Diflucan 150 MG Tablet 2 tablets Orally once and repeat in oneweekNot-Taking/PRN Ibuprofen 800 MG Tablet 1 tablet Orally Three times a dayNot-Taking/PRN Ventolin HFA 108 (90 Base) MCG/ACT Aerosol Solution 2 puffs as needed Inhalation every 6 hrsMedication List reviewed and reconciled with the patient * Allergies:?Morphine Sulfate: n/vGabapentin: visual disturbanceyes[Allergies Verified] Objective: * Vitals:?Ht: 74.25, Wt:294, B WA:37.49, BP:120/65, Wt-k.36. * ???Past Orders: ???Lab:Liver Panel (Order Da te - 12/05/2023) (Collection Date - 12/05/2023) ? Value Reference Range ?Bilirubin Total 1.8 H 0.0- 1.0 - mg/dL ?Bilirubin Direct 0.5 0.0 -0.5 - mg/dL ?Aspartate Amino Transferase 27 5-37 - U/L ?Alanine Aminotransferase 32 0-40 - U/L ?Total Protein 6.8 6.5-8. 0 - g/dL ?Albumin Level 4.1 3.5-5. 0 - g/dL ?Alkaline Phosphatase 52 39-117 - U/L ???Lab:Lipid Panel with Refl ex (Order Date - 12/05/2023) (Collection Date - 12/05/2023) ? Value Reference Range ?Triglycerides 106 <150 - mg/dL ?Cholesterol 143 <200 - m g/dL ?LDL Cholesterol Calculated 67 <100 - mg/dL ?HDL Cholesterol 55 >40 - mg/dL * Examination: ???General Examination: ?GENERAL APPEARANCE:? alert, well hydrated, in no distress .?HEAD:? normocephalic.?SKIN:? good turgor.?HEART:? regular rate and rhythm, no murmurs, rubs, gallops.?LUNGS:? no wheezes, , rhonchi, good air movement rales in lower lobes chronically.? Assessment: * Assessment: 1.?Essential hypertension - I10 (Primary)?2.?Hypercholesteremia - E78.00? Plan: * Treatment: 2.?Hypercholesteremia? Continue Atorvastatin Calcium Tablet, 20 MG, take 1 tablet by mouth every day for 30 days, Orally, Once a day.?? Notes: well controlled on meds?? * Procedure Codes:? * * Sign off status: Completed true * Provider:?Javed Gonzales MD Date:?1 Generated for Anselmo galeas/Marisabel/eTransmitting on:?04/21/2024 10:35 AM EST History and Physical Notes * HPI (History of Present Illness) Category Sub-Category Detail Notes Category Not es Symptom(s) patient is a 58 yo male here for 6 month follow up of bp Examination Category Sub-Category Detail Notes Category Not es General Examination GENERAL APPEARANCE: alert, w ell hydrated, in no distress HEAD: normocephalic HEART: regular rate and rhy thm, no murmurs, rubs, gallops LUNGS: no wheezes, , rhonch i, good air movement rales in lower lobes chronically SKIN: good turgor
--- OUTSIDE RECORDS SUMMARY | 2024-04-21 10:35 | XMS_ITS | Patient Health Record ---
Author Organization [facility] Address [address] [place] [address] Care Team Providers Care Filter Filler Name Role Phone Javed Gonzales MD Primary Care Provider Mejia Blanton Unavailable [phone] ALLERGIES Allergen (clinical drug ingredient) Drug/Non Drug Allergy documented on EMR Reaction Allergy Type Onset Date Status morphine Morphine Sulfate Unknown Drug Allergy Active ? muscle relaxer (uncoded) Unknown Allergy Active REASON FOR REFERRAL No Information MEDICATIONS Medication SIG (Take, Route, Fr equency, Duration) Notes Start Date End Date Status Calcium 1 tab Oral Active Avalide 300-12.5 MG 1 tablet Orally Once a day Active Multi Vitamin/Minerals Orally Active Plaquenil 200 MG 1 tablet with food o r milk Orally Once a day Active predniSONE 7 mg 1 tablet with food o r milk Orally Once a day Active IMMUNIZATIONS Vaccine Route Administration Date Status Comme nts Influenza Unknown 01/03/2021 Administered SOCIAL HISTORY Sex Assigned At : Social History Observation Description Sex Assigned At Unknown PROBLEMS Problem Type ICD Code Onset Dates Problem Status W/U Status Risk SNOMED Code Notes Problem Encounter for screening for malignant neoplasm of colon (Z12.11) Active confirmed 097062269 Problem History of adenomatous polyp of colon (Z86.010) Active confirmed 637334311 Problem Encounter for screening for malignant neoplasm of rectum (Z12.12) Active confirmed Screening for malignant neoplasm of rectum (072136014) Problem Gastroesophageal reflux disease without esophagitis (K21.9) Active confirmed 037556174 Problem Preprocedural examination (Z01.818) Active confirmed [id number] Problem Hiatal hernia (K44.9) Active confirmed 84636604 Problem Diverticulosis of colon (K57.30) Active confirmed Diverticulosi s of colon (402492260) PLAN OF TREATMENT Pending Test Test Name Order Date Pathology 04/10/2021 Future Test Test Name Order Date COLONOSCOPY 05/03/2015 COLONOSCOPY 01/10/2021 Insurance Providers Payer Name Payer Address Payer Phone Subscriber Number Group Number Insured Name Patient Relationship to Insured Coverage Start Date Coverage End Date [facility] [address] [facility] [place] [address] [id number] DONY CANTOR Self - patient is the insured MEDICAL (GENERAL) HISTORY Medical History History ICD Code HTN Pulmonary fibrosis--sees Dr. 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
--- OUTSIDE RECORDS SUMMARY | 2024-04-21 10:36 | XMS_ITS ---
Author Organization Javed Gonzales MD Address [address] [place], [place] [id number] Care Team Providers Care Substation Design Draftsperson Name Role Phone Javed Gonzales Primary Care Provider [phone] Allergies Allergen (clinical drug ingredient) Drug/Non Drug Allergy documented on EMR Reaction Allergy Type Onset Date Status morphine Morphine Sulfate n/v Drug Allergy Active gabapentin Gabapentin (uncoded) visual disturbance Allergy Active REASON FOR VISIT Coughing, was [facility] in [place] [phone], ? Pneumonia ? for him to have a CT chest, Video [phone] Medications Medication SIG (Take, Route, Frequency, Duration) Notes Start Date End Date Status Zithromax Z-Du 250 MG as directed Orall y Once a day for 5 days 04/21/2024 Active Amoxicillin-Pot Clavulanate 875-125 MG 1 tablet Orally every 12 hrs for 10 days 04/21/2024 Active Albuterol Sulfate HFA 108 (90 Base) MCG/ACT 1 puff as needed Inhalation every 4 hrs for 30 days 04/21/2024 Active Ventolin HFA 108 (90 Base) MCG/ACT 2 puffs as needed Inhalation every 6 hrs for 30 days 03/15/2017 Not-Taking Ibuprofen 800 MG 1 tablet Orally Three times a day for 30 06/23/2013 Not-Taking methylPREDNISolone 4 MG 2 tablets with f ood or milk in the morning Oral once a day Active Atorvastatin Calcium 20 MG take 1 tablet by mouth every day for 30 days Orally Once a day Active Valium 2 MG 1 tablet as needed Orally twice a day for 7 days 07/04/2023 Not-Taking Diflucan 150 MG 2 tablets Orally once and repeat in oneweek for 2 days 12/21/2019 Not-Taking Valsartan-hydroCHLOROthiazid e 320-12.5 MG TAKE 1 TABLET DAILY for 90 Active Ibuprofen 800 MG 1 tablet with food or milk as needed Orally every 8 hrs Not-Taking Plaquenil 200 MG 1 tablets with food or milk Orally once a day Active Calcium 600 MG 2 tablets with meals Orally Once a day Active Vital Signs Blood pressure systolic 122 mm Hg 04/21/19 25 Blood pressure diastolic 68 mm Hg 025 Height 74.25 in 04/21/2024 Weight 73 lbs 04/21/2024 BMI 9.31 kg/m2 04/21/2024 weight is 273 at home BP 122 /68 No temp Encounters Encounter Location Date Provider Diagnosis Javed Gonzales MD [address] [place] [address] Drive [address] [place] [phone] 04/21/2024 Jaevd Gonzales Acute pneumonia J18.9 Assessments Encounter Date Diagnosis (ICD Code) Assessment Notes Treatment Notes Treatment Clinical Notes Section Notes 04/21/2024 Acute pneumonia (ICD-10 - J18.9) Plan Of Treatment Medication Medication Name Sig Start Date Stop Date Notes Zithromax Z-Du 250 MG as directed Orall y Once a day for 5 days 04/21/2024 Amoxicillin-Pot Clavulanate 875-125 MG 1 tablet Orally every 12 hrs for 10 days 04/21/2024 Albuterol Sulfate HFA 108 (9 0 Base) MCG/ACT 1 puff as needed Inhalation every 4 hrs for 30 days 04/21/2024 Pending Test Test Name Order Date SARS-CoV2/FLU/RSV 04/21/2024 Next Appt Details Provider Name:Javed goodson, 06/01/2024 08:00:00 AM, [address] [place] [address], [address], [place], [place], [id number], Provider Name:Javed goodson, 06/08/2024 08:30:00 AM, [address] [place] [address], [address], [place], [place], [phone], Progress Notes * Jeremías CANTOR PDOB:1965 (58 yo M)Acc No.[id number]:04/21/2024 Patient:?Jeremías CANTOR Provider:?Javed Gonzales MD :1965???Age:58 Y???Sex:Male Jakob e:04/21/2024 Address:[address], [place], [place] Subjective: * Chief Complaints: * ???1. Coughing, was seen by [facility] on Saturday in [place] [phone]. 2. ? Pneumonia ? for him to have a CT chest. 3. Video [phone]. * HPI: ???Symptom(s):?Telehealth?Location of provider rendering services:?[address], [address],?Location of patient:?at address listed in demographics for today's visit,?Patient identification confirmed using:?Name, ,?Telehealth method:?Video conference where patient is visible to the provider of care,?Consent:?Patient verbally consented to treatment, Patient verbally consented to billing insurance company, Patient informed of any privacy concerns related to method of visit,?Total time spend talking with patient (minutes)?0.? here as emergency. went to walk in and they said that he needs a cat scan because of the interstitial lung disease and calcium. * ROS:?General/Constitutional:?Denies?Chills.?Denies?Fatigue.?Denies?Fever.?Denies?Headache.?ENT:?Denies?Sore throat.?Respiratory:?Admits?Cough.?Denies?Shortness of breath at rest.?Admits?Shortness of breath with exertion.?Denies?Sputum production.?Gastrointestinal:?Denies?Diarrhea.?Denies?Nausea.? * Medical History:?Hematuria w ith biopsy of bladder, endoscopy - 12/14/14 depending on biospy, repeat 3 yrs; colonoscopy done 07/06/15 - Dr. Gardner (repeat 5 years tubular adenoma):04/10/21 colonoscopy repeat 5yrs, Hx of Low HDL (under 40), Bone Density 2020 Negative. * Medications:?Taking Calcium 600 MG Tablet 2 tablets with meals Orally Once a day , Taking Plaquenil 200 MG Tablet 1 tablets with food or milk Orally once a day , Taking methylPREDNISolone 4 MG Tablet 2 tablets with food or milk in the morning Oral once a day , Taking Atorvastatin Calcium 20 MG Tablet take 1 tablet by mouth every day for 30 days Orally Once a day , Taking Valsartan-hydroCHLOROthiazide 320-12.5 MG Tablet TAKE 1 TABLET DAILY , Not-Taking/PRN Ibuprofen 800 MG Tablet 1 tablet with food or milk as needed Orally every 8 hrs , Not-Taking/PRN Valium 2 MG Tablet 1 tablet as needed Orally twice a day , Not-Taking/PRN Diflucan 150 MG Tablet 2 tablets Orally once and repeat in oneweek , Not-Taking/PRN Ibuprofen 800 MG Tablet 1 tablet Orally Three times a day , Not-Taking/PRN Ventolin HFA 108 (90 Base) MCG/ACT Aerosol Solution 2 puffs as needed Inhalation every 6 hrs , Medication List reviewed and reconciled with the patient * Allergies:?Morphine Sulfate: n/v, Gabapentin: visual disturbance. Objective: * Vitals:?Ht: 74.25, Wt: 73, B WA:9.31, BP:122/68, Wt-k.11. weight? is 273? at home? BP 122/68? No? temp. * Examination: ???General Examination: ?GENERAL APPEARANCE:?coughing non stop.? Assessment: * Assessment: 1.?Acute pneumonia - J18.9 ( Primary)??? Plan: * Treatment: * * The named appointment provid er may or may not be the originator of this progress note, and it is not deemed complete until electronically signed by the appointment provider. Sign off status: Pending * Provider:?Javed Gonzales MD Date:?0 04/21/2024 Generated for Anselmo galeas/Marisabel/Jennyferitting on:?04/21/2024 10:35 AM EST History and Physical Notes * HPI (History of Present Illness) Category Sub-Category Detail Notes Category Not es Symptom(s) Telehealth Location of [facility] rendering services:: [address], [address] here as emergency. went to walk in and they said that he needs a cat scan because of the interstitial lung disease and calcium Location of patient:: at address listed in demographics for today's visit Patient identification confirmed using:: Name, Telehealth method:: Video co nference where patient is visible to the provider of care Consent:: Patient verbally c onsented to treatment, Patient verbally consented to billing insurance company, Patient informed of any privacy concerns related to method of visit Total time spend talking with patient (m inutes): 0 Examination Category Sub-Category Detail Notes Category Not es General Examination GENERAL APPEARANCE: coughing non s top
--- OUTSIDE RECORDS SUMMARY | 2024-04-21 10:36 | XMS_ITS ---
Author Organization Javed Gonzales MD Address [address] [place], [place] [id number] Care Team Providers Care Assembly Inspector Helper Name Role Phone Javed Gonzales Primary Care Provider [phone] Results Component Value Reference Range Notes Liver Panel Reviewed date:12/05/2023 04:16:55 PM Interpretation: Performing Lab:[facility], [address] [place] [id number] Notes/Report: Bilirubin Total 1.8 0.0-1.0 mg/dL Bilirubin Direct 0.5 0.0-0.5 mg/dL Aspartate Amino Transferase 27 5-37 U/L Alanine Aminotransferase 32 0-40 U/L Total Protein 6.8 6.5-8.0 g/dL Albumin Level 4.1 3.5-5.0 g/dL Alkaline Phosphatase 52 39-117 U/L Lipid Panel with Reflex Reviewed date:12/05/2023 04:18:53 PM Interpretation: Performing Lab:[facility], [address] [place] [phone] Notes/Report: Triglycerides 106 <150 mg/dL Desirable Triglyceride: less than 150 mg/dL Borderline High Triglyceride 150-199 mg/dL High Triglyceride: 200-499 mg/dL Very High Triglyceride: greater than or equal to 5OO mg/dL Cholesterol 143 <200 mg/dL Desirable Cholesterol: less than 200 mg/dL Borderline High Cholesterol: 200-239 mg/dL High Cholesterol: greater than 239 mg/dL LDL Cholesterol Calculated 67 <100 mg/dL Desirable LDL: less than 100 mg/dL Near Optimal/Above Optimal LDL: 110-129 mg/dL Borderline High LDL: 130-159 mg/dL High LDL: 160-189 mg/dL Very High LDL: greater than or equal to 190 mg/dL HDL Cholesterol 55 >40 mg/dL Desirable HDL: greater than 40 mg/dL Note: This HDL assay may give artificially low results in patients with liver disease. REASON FOR VISIT lipids Encounters Encounter Location Date Provider Diagnosis Javed Gonzales MD [address] [place] [address] [place] [phone] 12/05/2023 Javed Gonzales Hypercholesteremia E 78.00 Assessments Encounter Date Diagnosis (ICD Code) Assessment Notes Treatment Notes Treatment Clinical Notes Section Notes 12/05/2023 Hypercholesteremia (ICD-10 - E78.00) Plan Of Treatment Next Appt Details Provider Name:Javed goodson, 06/01/2024 08:00:00 AM, [address] [place] [address], Suite [facility], [place], [place], [phone], Provider Name:Javed goodson, 06/08/2024 08:30:00 AM, [address] [place] [address], Suite [facility], [place], [place], [phone], Progress Notes * Jeremías CANTOR PDOB:1965 (58 yo M)Acc No.[id number]:12/05/2023 Progress Note Patient:Jeremías MIRANDA Provider:?Javed Gonzales MD :1965???Age:58 Y???Sex:Male Jakob e:12/05/2023 Address: [address], [facility] [id number] Subjective: * Chief Complaints: * ???1. Lipids. * Medical History:? Objective: * Vitals:? Assessment: * Assessment: 1.?Hypercholesteremia - E78. 00 (Primary)??? Plan: * Treatment: * Procedure Codes:?52217 VENIP UNCT, ROUTINE* * * The named appointment provid er may or may not be the originator of this progress note, and it is not deemed complete until electronically signed by the appointment provider. Sign off status: Pending * Provider:?Javed Gonzales MD Date:?1 Generated for Anselmo galeas/Marisabel/Siri on:?04/21/2024 10:36 AM EST
[2024-04-21 10:56] LABS: Influenza A PCR NEGATIVE (Negative); Influenza B PCR NEGATIVE (Negative); Resp Syncy Virus RNA Qual PCR NEGATIVE (Negative); SARS COV2 PCR INHOUSE NEGATIVE (Negative)
== END 2024-04-21 09:52 | disposition home or self-care (01) ==
LOC: HO.LAB 09:51
PROVIDERS: PCP Internal Medicine; Visit Provider Internal Medicine
DX: J18.9 Pneumonia, unspecified organism (principal)
CPT/HCPCS: 0241U

== ENCOUNTER 2024-06-01 12:12 | Outpatient (REF) | payer OTHER, SELFPAY ==
[2024-06-01 12:15] LABS: MANUAL DIFF FLAG NO
[2024-06-01 12:27] LABS: Basophils Percent Auto 0.7 % (0-2); Eosinophils Absolute Auto 0.2 X10*3/uL (0.0-0.4); Eosinophils Percent Auto 3.1 % (0-4); Hematocrit 42.3 % (42.0-52.0); Hemoglobin 13.9 g/dl (14.0-18.0); Imm Gran Abs Auto 0.01 X10*3/uL (0.00-0.03); Imm Gran Pct Auto 0.2 % (0.0-0.4); Lymphocytes Absolute Auto 1.9 X10*3/uL (1.2-4.9); Lymphocytes Percent Auto 31.4 % (20-40); Mean Corpuscular HGB Conc 32.9 g/dl (31.0-36.0); Mean Corpuscular Hemoglobin 30.5 pg (27.0-33.0); Mean Corpuscular Volume 92.8 fL (80.0-98.0); Monocytes Absolute Auto 0.8 X10*3/uL (0.1-1.2); Monocytes Percent Auto 12.4 % (2-11); Neutrophils Absolute Auto 3.2 x10*3/uL (2.0-8.3); Neutrophils Percent Auto 52.2 % (45-73); Platelet Count 176 X10*3/uL (160-400); Red Blood Count 4.56 X10*6/uL (4.60-5.80); Red Cell Distribution Width 13.9 % (11.0-16.0); White Blood Count 6.1 X10*3/uL (4.8-10.8)
[2024-06-01 12:29] LABS: Appearance Urine Clear; Color Urine Dark Yellow; Glucose Urine UA Negative (Negative); Leukocyte Esterase Urine Negative (Negative); Nitrite Urine Negative (Negative); PH 6.5 (5.0-9.0); Specific Gravity - Urine 1.025 (1.005-1.025); UMIC TRIGGER UACC YES; Urine Blood Negative (Negative); Urine Ketones Negative (Negative); Urine Protein 30 (1+) mg/dL (Neg-Trace)
[2024-06-01 12:35] LABS: Bacteria Urine None Seen (None Seen); Hyaline Casts Urine 0-2 /LPF (0-2); RBC Urine 0-2 /HPF (0-2); Squamous Epithelial Cell Urine 0-2 /HPF (0-2); WBC Urine 0-5 /HPF (0-5)
[2024-06-01 12:53] LABS: Alanine Aminotransferase 37 U/L (0-40); Alkaline Phosphatase 41 U/L (39-117); Anion Gap 11 (12-20); Aspartate Amino Transferase 32 U/L (5-37); Bilirubin Total 1.6 mg/dL (0.0-1.0); Blood Urea Nitrogen 14 mg/dL (9-16); Carbon Dioxide 30 mmol/L (22-29); Chloride 106 mmol/L (96-108); Cholesterol 143 mg/dL (<200); Estimated Glomerular Filt Rate > 60; Glucose Random 83 mg/dL (60-115); HDL Cholesterol 52 mg/dL (>40); LDL Cholesterol Calculated 76 mg/dL (<100); Potassium 3.7 mmol/L (3.3-5.1); Sodium 143 mmol/L (135-145); Total Protein 6.3 g/dL (6.5-8.0); Triglycerides 78 mg/dL (<150)
[2024-06-01 12:56] LABS: Estimated Average Glucose 103 mg/dL; Hemoglobin A1c % 5.2 % (<6.0); Total Hemoglobin (HGBA1C) 3720.2473 umol/L
[2024-06-01 13:08] LABS: Microalbum/Creatinine Ratio Ur 3.6 ug/mg cr (<30)
[2024-06-01 13:12] LABS: PSA,Total (Free>4and<10) 1.51 ng/mL (0.00-4.00)
--- OUTSIDE RECORDS SUMMARY | 2024-06-01 13:53 | XMS_ITS | Referral Summary ---
Author Organization [facility] Address [address] [place] [address] Care Team Providers Care Propeller Inspector Name Role Phone Janet Javed Primary Care Provider [phone] Encounters Date Type Department Care Team Description 03/29/2024 Refill [facility] [address] [place], [place] [phone] Ic Designer Standard Cells: Kam Gutiérrez DO from Last 3 Months Allergies Active Allergy Reactions Criticality Noted Date Comments Cyclobenzaprine Blurry vision Dye Unknown 03/11/2012 Gabapentin Blurry vision 11/23/2021 Morphine Dermatitis,Headache 04/17/2017 Turn martin and very sick SKIN ANOMALY NEC Pregabalin Blurry vision 07/09/2017 Had difficulty focusing and seeing well Medications valsartan-hydro chlorothiazide (DIOVAN-HCT) 320-12.5 mg per tablet Diovan HCT 320-12.5 MG Oral Tablet TAKE 1 TABLET ONCE DAILY. Refills: 0 Started -Nov-2008 Active 11/02/2008 Active calcium carbonate-vitam in D3 600 mg(1,500mg) -200 unit per tablet Take 1 tablet by mouth 2 times a day, 2 times a week. Active multivitamin capsule Take 1 capsule by mouth daily. Active atorvastatin (LIPITOR) 40 mg tablet Take 20 mg by mouth once a day. 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 Procedure Name Priority Date/Time Associated Diagnosis Comments BASIC METABOLIC PANEL Routine 12/13/2022 10:02 AM EDT Diffuse fasciitis from Last 3 Months or Most Recently Relevant to Health Maintenance Results * Due to [facility] law, this organization might not be sharing negative HIV tests. * (ABNORMAL) Basic Metabolic Panel (12/13/2022 10:02 AM EDT) NA 141 135 - 145 mmol/L 12/13/2022 11:20 AM EDT [facility] K 3.6 3.5 - 5.3 mmol/L 12/13/2022 11:20 AM EDT [facility] Cl 103 97 - 110 mmol/L 12/13/2022 11:20 AM EDT [facility] CO2 33(H) 24 - 32 mmol/L 12/13/2022 11:20 AM EDT [facility] BUN 13 7 - 23 mg/dL 12/13/2022 11:20 AM EDT [facility] Creatinine 0.68 0.60 - 1.30 mg/dL 12/13/2022 11:20 AM EDT [facility] Glucose 78 70 - 99 mg/dL 12/13/2022 11:20 AM EDT [facility] Calcium 9.5 8.7 - 10.7 mg/dL 12/13/2022 11:20 AM EDT [facility] Anion Gap 5 5 - 15 12/13/2022 11:20 AM EDT [facility] eGFR >90 >=60 mL/min/1. 73m2 12/13/2022 11:20 AM EDT [facility] Comment:The estimated glomer [...] MD LAB BLOOD ORDERABLES Final Resul t [facility] [address] [place] [address], from Last 3 Months or Most Recently Relevant [place] [id number] Care Teams Propeller Inspector Relationship Specialty Start Date End Date Javed Gonzales [address] [place] [address] [place] [address] PCP - General 09/20/16
--- OUTSIDE RECORDS SUMMARY | 2024-06-01 13:53 | XMS_ITS | Clinical Summary ---
Author Organization [facility] Address [address] [place] [address] Care Team Providers Care Crackling Press Operator Name Role Phone Javed Gonzales Primary Care Provider [phone] Allergies Active Allergy Reactions Criticality Noted Date [...] calcinosis 06/01/2018 Olecranon bursitis, left elbow 03/11/2017 snf current use of systemic steroids 10/12 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 Pain of right calf 04/07/2015 Edema of left lower extremity 10/05/2014 IPF (idiopathic pulmonary fibrosis) 03/16/2013 Open Wound Of The Shoulder 12/13/2008 Hypertension 12/13/2008 Morphea 12/13/2008 Pneumonia 12/13/2008 Vitamin d deficiency 11/04/2008 Fasciitis 11/02/2008 Encounters Date Type Department Care Team Description 03/29/2024 Refill [facility] [address] [place] [address] Neon Glass Blower: Kam Gutiérrez DO from Last 3 Months [...] Description 07/03/2024 11:20 AM EDT Office Visit [facility] [address] [place] [address] Neon Glass Blower: Kam Gutiérrez DO [address] [facility] [place] [address] Health Maintenance Due Date Last Done Comments [...] Additional history exists Procedures * Due to [place] state law, this organization might not be sharing negative HIV tests. Procedure Name Priority Date/Time Associated Diagnosis Comments BASIC METABOLIC PANEL Routine 12/13/2022 10:02 AM EDT Diffuse fasciitis from Last 3 Months or Most Recently Relevant to Health Maintenance Results * Due to [place] state law, this organization might not be sharing negative HIV tests. * (ABNORMAL) Basic Metabolic Panel (12/13/2022 10:02 AM EDT) NA 141 135 - 145 mmol/L 12/13/2022 11:20 AM EDT [facility] K 3.6 3.5 - 5.3 mmol/L 12/13/2022 11:20 AM EDT [facility] Cl 103 97 - 110 mmol/L 12/13/2022 11:20 AM EDT [facility] CO2 33(H) 24 - 32 mmol/L 12/13/2022 11:20 AM EDT [facility] BUN 13 7 - 23 mg/dL 12/13/2022 11:20 AM EDT [facility] Creatinine 0.68 0.60 - 1.30 mg/dL 12/13/2022 11:20 AM EDT [facility] Glucose 78 70 - 99 mg/dL 12/13/2022 11:20 AM T [facility] Calcium 9.5 8.7 - 10.7 mg/dL 12/13/2022 11:20 AM EDT [facility] Anion Gap 5 5 - 15 12/13/2022 11:20 AM T [facility] eGFR >90 >=60 mL/min/1. 73m2 12/13/2022 11:20 AM EDT [facility] Comment:The estimated glomer [...] MD LAB BLOOD ORDERABLES Final Resul t [facility] [address] [place] [address], [place] from Last 3 Months or Most Recently Relevant to Health Maintenance Insurance [employer] Care Teams Crackling Press Operator Relationship Specialty Start Date End Date Javed Gonzales [address] [place] [address] [place] [address] PCP - General 09/20/16
--- OUTSIDE RECORDS SUMMARY | 2024-06-01 13:53 | XMS_ITS ---
Author Organization Javed Gonzales MD Address [address] [place], [place] [id number] Care Team Providers Care Head Cd Reactor Operator Name Role Phone Javed Gonzales Primary Care Provider Results Component Value Reference Range Notes Complete Blood Count Auto Di ff (Not yet reviewed by provider) Interpretation: Performing Lab:[facility], [address] [place] [phone] Notes/Report: White Blood Count 6.1 4.8-10.8 X10*3/uL Red Blood Count 4.56 4.60-5.80 X10*6/uL Hemoglobin 13.9 14.0-18.0 g/dl Hematocrit 42.3 42.0-52.0 % Mean Corpuscular Volume 92.8 80.0-98.0 fL Mean Corpuscular Hemoglobin 30.5 27.0-33.0 pg Mean Corpuscular HGB Conc 32.9 31.0-36.0 g/dl Red Cell Distribution Width 13.9 11.0-16.0 % Platelet Count 176 160-400 X10*3/uL Mean Platelet Volume 11.0 9.4-12.4 fL Neutrophils Percent Auto 52.2 45-73 % Imm Gran Pct Auto 0.2 0.0-0.4 % Lymphocytes Percent Auto 31.4 20-40 % Monocytes Percent Auto 12.4 2-11 % Eosinophils Percent Auto 3.1 0-4 % Basophils Percent Auto 0.7 0-2 % NRBC Pct Auto 0.0 0.0-0.2 /100WBC Neutrophils Absolute Auto 3.2 2.0-8.3 x10*3/u L Imm Gran Abs Auto 0.01 0.00-0.03 X10*3/uL Lymphocytes Absolute Auto 1.9 1.2-4.9 X10*3/u L Monocytes Absolute Auto 0.8 0.1-1.2 X10*3/uL Eosinophils Absolute Auto 0.2 0.0-0.4 X10*3/u L Basophils Absolute Auto 0.0 0.0-0.2 X10*3/uL NRBC Abs Auto 0.000 0.0-0.012 X10*3/uL UA ClnCatch+Micro w/rflx Cul t (Not yet reviewed by provider) Interpretation: Performing Lab:[facility], [address] [place] [phone] Notes/Report: Urine, Clean Catch Color Urine Dark Yellow Appearance Urine Clear PH 6.5 5.0-9.0 Glucose Urine UA Negative Negative mg/dL Urine Blood Negative Negative Specific [place] - Urine 1.025 1.005-1.025 Urine Protein 30 (1+) Neg-Trace mg/dL Urine Ketones Negative Negative mg/dL Nitrite Urine Negative Negative Leukocyte Esterase Urine Negative Negative RBC Urine 0-2 0-2 /HPF WBC Urine 0-5 0-5 /HPF Squamous Epithelial Cell Urine 0-2 0-2 /HPF Bacteria Urine None Seen None Seen Hyaline Casts Urine 0-2 0-2 /LPF Lipid Panel Reviewed date:06/01/2024 01:52:31 PM Interpretation: Performing Lab:[facility], [address] [place] [phone] Notes/Report: Triglycerides 78 <150 mg/dL Desirable Triglyceride: less than 150 mg/dL Borderline High Triglyceride 150-199 mg/dL High Triglyceride: 200-499 mg/dL Very High Triglyceride: greater than or equal to 5OO mg/dL Cholesterol 143 <200 mg/dL Desirable Cholesterol: less than 200 mg/dL Borderline High Cholesterol: 200-239 mg/dL High Cholesterol: greater than 239 mg/dL LDL Cholesterol Calculated 76 <100 mg/dL Desirable LDL: less than 100 mg/dL Near Optimal/Above Optimal LDL: 110-129 mg/dL Borderline High LDL: 130-159 mg/dL High LDL: 160-189 mg/dL Very High LDL: greater than or equal to 190 mg/dL HDL Cholesterol 52 >40 mg/dL Desirable HDL: greater than 40 mg/dL Note: This HDL assay may give artificially low results in patients with liver disease. PSA,Total (Free>4and<10) Reviewed date:06/01/2024 01:41:54 PM Interpretation: Performing Lab:[address] [phone] Notes/Report: PSA,Total (Free>4and<10) 1.51 0.00-4.00 ng/mL A Free PSA was not performed: The percentage of Free PSA can be used to enhance the differentiation of prostate cancer from benign prostatic disease in subjects whose PSA levels are between 4.0 and 10.0 ng/mL. For subjects whose PSA levels are below 4.0 or above 10.0 ng/mL, the risk of prostate cancer is determined on the basis of the PSA alone. Therefore the % Free PSA is recommended only for those subjects whose PSA levels are between 4.0 and 10.0 ng/mL. PSA methodology: Neumann Alinity i Chemiluminescent Microparticle Immunoassay (CMIA) Microalbumin, Random Reviewed date:06/01/2024 01:49:05 PM Interpretation: Performing Lab:[address] [phone] Notes/Report: Creatinine Urine 274.70 Microalbumin Urine 10.0 Microalbum/Creatinine Ratio Ur 3.6 <30 ug/mg cr Albumin/Creatinine Ratio Reference Ranges: Normal: < 30 ug/mg creatinine Microalbuminuria: 30 - 300 ug/mg creatinine Clinical Albuminuria: > 300 ug/mg creatinine Hemoglobin A1c Reviewed date:06/01/2024 01:43:03 PM Interpretation: Performing Lab:[address] [phone] Notes/Report: Hemoglobin A1c % 5.2 <6.0 % Hemoglobin A1C Reference Range Adults: 4.8 - 6.0 % Non diabetic: < 6.0 % Goal: < 7.0 % Additional Action Suggested: > 8.0 % Note: Hemoglobin A1c results are invalid for patients with abnormal amounts of HbF. Blood transfusions may impact the HbA1c concentration in the patient sample. Estimated Average Glucose 103 eAG = Estimated average glucose which is %A1C expressed as average glucose, using the formula of the [id number] Average Glucose study (ADAG), Diabetes Care, Vol.31,#8, 2007 REASON FOR VISIT yearly fasting labs Encounters Encounter Location Date Provider Diagnosis Javed Gonzales MD [address] [place] [address] [place] [phone] 06/01/2024 Javed Gonzales Blood tests for rout ine general physical examination Z00.00 ; Essential hypertension I10 and Hypercholesteremia E78.00 Assessments Encounter Date Diagnosis (ICD Code) Assessment Notes Treatment Notes Treatment Clinical Notes Section Notes 06/01/2024 Blood tests for routine general physical examination (ICD-10 - Z00.00) 06/01/2024 Essential hypertensi on (ICD-10 - I10) 06/01/2024 Hypercholesteremia (ICD-10 - E78.00) Plan Of Treatment Pending Test Test Name Order Date Complete Blood Count Auto Diff Comprehensive [place]. Panel Fast 5 UA ClnCatch+Micro w/rflx Cult 06/01/2024 Next Appt Details Provider Name:Javed Amaro ier, 06/08/2024 08:30:00 AM, [address] [place] [address], Suite [facility], [place], [place], [phone], Progress Notes * DEVAUGHNJeremías PDOB:1965 (59 yo M)Acc No.[id number]:06/01/2024 Progress Note Patient:Jeremías MIRANDA Provider:?Javed Gonzales MD :1965???Age:59 Y???Sex:Male Jakob e:06/01/2024 Address:[address], [facility], [id number] Subjective: * Chief Complaints: * ???1. Yearly fasting labs. * Medical History:? Objective: * Vitals:? Assessment: * Assessment: 1.?Blood tests for routine g eneral physical examination - Z00.00 (Primary)???2.?Essential hypertension - I10???3.?Hypercholesteremia - E78.00??? Plan: * Treatment: 2.?Essential hypertension?LAB: Complete Blood Count Auto Diff (Collection Date & Time - 06/01/2024 08:00 AM) ?LAB: [facility] [place]. Panel Fast ?LAB: UA ClnCatch+Micro w/rflx Cult (Collection Date & Time - 06/01/2024 08:00 AM) ?LAB: Lipid Panel (Collection Date & Time - 06/01/2024 08:00 AM) ?LAB: PSA,Total (Free>4and<10) (Collection Date & Time - 06/01/2024 08:00 AM) ?LAB: Microalbumin, Random (Collection Date & Time - 06/01/2024 08:00 AM) ?LAB: Hemoglobin A1c (Collection Date & Time - 06/01/2024 08:00 AM) 3.?Hypercholesteremia?LAB: Complete Blood Count Auto Diff (Collection Date & Time - 06/01/2024 08:00 AM) ?LAB: [facility] [place]. Panel Fast ?LAB: UA ClnCatch+Micro w/rflx Cult (Collection Date & Time - 06/01/2024 08:00 AM) ?LAB: Lipid Panel (Collection Date & Time - 06/01/2024 08:00 AM) ?LAB: PSA,Total (Free>4and<10) (Collection Date & Time - 06/01/2024 08:00 AM) ?LAB: Microalbumin, Random (Collection Date & Time - 06/01/2024 08:00 AM) ?LAB: Hemoglobin A1c (Collection Date & Time - 06/01/2024 08:00 AM) * Procedure Codes:?00084 VENIP UNCT, ROUTINE* * * The named appointment provid er may or may not be the originator of this progress note, and it is not deemed complete until electronically signed by the appointment provider. Sign off status: Pending * Provider:?Javed Gonzales MD Date:?0 06/01/2024 Generated for Donavoni ng/Fajenniferg/eTransmitting on:?06/01/2024 01:53 PM EDT
--- OUTSIDE RECORDS SUMMARY | 2024-06-01 13:53 | XMS_ITS ---
Author Organization Javed Gonzales MD Address [address] [place], [place] [phone] Care Team Providers Care Copyright Clerk Name Role Phone Javed Gonzales Primary Care Provider Allergies Allergen (clinical drug ingredient) Drug/Non Drug Allergy documented on EMR Reaction Allergy Type Onset Date Status morphine Morphine Sulfate n/v Drug Allergy Active gabapentin Gabapentin (uncoded) visual disturbance Allergy Active Results Component Value Reference Range Notes SARS-CoV2/FLU/RSV Reviewed date:04/21/2024 12:25:26 PM Interpretation: Performing Lab:[facility], [address] [place] [phone] Notes/Report: Influenza A PCR NEGATIVE Negative Influenza B PCR NEGATIVE Negative Resp Syncy Virus RNA Qual PCR NEGATIVE Negative SARS COV2 PCR INHOUSE NEGATIVE Negative All test results must be correlated with clinical findings. Negative results do not preclude SARS-CoV2, influenza A virus, influenza B virus and/or RSV infection and should not be used as the sole basis for treatment or other patient management decisions. Negative results must be combined with clinical observations, patient history, and epidemiological information. This test has not been evaluated for monitoring treatment of infection. This test has been authorized by the FDA under an Emergency Use Authorization (EUA) for use by authorized laboratories. Testing performed on the [employer] GeneXpert utilizing real-time RT-PCR. All SARS CoV2 and positive influenza A/B results are reported to [facility]. REASON FOR VISIT Coughing, was seen by [facility] on Saturday in [place] [phone], ? Pneumonia ? for him to have a CT chest, Video [phone] Medications Medication SIG (Take, Route, Frequency, Duration) [...] Location Date Provider Diagnosis Javed Gonzales MD [address] [place] [address] [place] [phone] 04/21/2024 Javed Gonzales Acute pneumonia J18.9 Assessments Encounter Date Diagnosis (ICD Code) Assessment Notes Treatment Notes Treatment Clinical Notes Section Notes 04/21/2024 Acute pneumonia (ICD-10 - J18.9) patient verbalized understanding of medication and directions for use Plan Of Treatment Medication Medication Name Sig Start Date Stop Date Notes Zithromax Z-Du 250 MG as directed Orall y Once a day for 5 days 04/21/2024 Amoxicillin-Pot Clavulanate 875-125 MG 1 tablet Orally every 12 hrs for 10 days 04/21/2024 Albuterol Sulfate HFA 108 (9 0 Base) MCG/ACT 1 puff as needed Inhalation every 4 hrs for 30 days 04/21/2024 Treatment Notes Assessment Notes Acute pneumonia patient verbalized u nderstanding of medication and directions for use Next Appt Details Provider Name:Javed Amaro ier, 06/08/2024 08:30:00 AM, [address] [place] [address], [address], [place], [place], [phone], Progress Notes * Jreemías CANTOR PDOB:1965 (58 yo M)Acc No.[id number]:04/21/2024 Patient:?DEVAUGHNJeremías TORREZ Provider:?Javed Gonzales MD :1965???Age:58 Y???Sex:Male Jakob e:04/21/2024 Address:[address], [facility], [id number] Subjective: * Chief Complaints: * ???Coughing, was seen by [facility] on Saturday in [place] [phone]? Pneumonia ? for him to have a CT chestVide [phone] * HPI: ???Symptom(s):?Telehealth?Location of provider rendering services:?[address] [place] [address], [address],?Location of patient:?at address listed in demographics for today's visit,?Patient identification confirmed using:?Name, ,?Telehealth method:?Video conference where patient is visible to the provider of care,?Consent:?Patient verbally consented to treatment, Patient verbally consented to billing insurance company, Patient informed of any privacy concerns related to method of visit,?Total time spend talking with patient (minutes)?18.?patient is a 58 yo male video telehealth here as emergency. went to walk in and they said that he needs a cat scan because of the interstitial lung disease and calcium. * ROS:?General/Constitutional:?Denies?Chills.?Denies?Fatigue.?Denies?Fever.?Denies?Headache.?ENT:?Patient denies?decreased sense of smell, any loss of taste, sore throat.?Denies?Sore throat.?Respiratory:?Admits?Cough.?Denies?Shortness of breath at rest.?Admits?Shortness of breath with exertion.?Denies?Sputum production.?Gastrointestinal:?Denies?Diarrhea.?Denies?Nausea.?Musculoskeletal:?Patient denies?muscle aches.?Peripheral Vascular:?Patient denies?red and blue toes.? * Medical History:? * Surgical History:? * Hospitalization/Major Diagno stic Procedure:? * Medications:?TakingCalcium 6 00 MG Tablet 2 tablets with meals Orally Once a day Plaquenil 200 MG Tablet 1 tablets with food or milk Orally once a day methylPREDNISolone 4 MG Tablet 2 tablets with food or milk in the morning Oral once a day Atorvastatin Calcium 20 MG Tablet take 1 tablet by mouth every day for 30 days Orally Once a day Valsartan-hydroCHLOROthiazide 320-12.5 MG Tablet TAKE 1 TABLET DAILY Taking Calcium 600 MG Tablet 2 tablets with meals Orally Once a day Taking Plaquenil 200 MG Tablet 1 tablets with food or milk Orally once a day Taking methylPREDNISolone 4 MG Tablet 2 tablets with food or milk in the morning Oral once a day Taking Atorvastatin Calcium 20 MG Tablet take 1 tablet by mouth every day for 30 days Orally Once a day Taking Valsartan-hydroCHLOROthiazide 320-12.5 MG Tablet TAKE 1 TABLET DAILY Not-Taking/PRNIbuprofen 800 MG Tablet 1 tablet with food or milk as needed Orally every 8 hrs Valium 2 MG Tablet 1 tablet as needed Orally twice a day Diflucan 150 MG Tablet 2 tablets Orally once and repeat in oneweek Ibuprofen 800 MG Tablet 1 tablet Orally Three times a day Ventolin HFA 108 (90 Base) MCG/ACT Aerosol Solution 2 puffs as needed Inhalation every 6 hrs Medication List reviewed and reconciled with the patientNot-Taking/PRN Ibuprofen 800 MG Tablet 1 tablet with food or milk as needed Orally every 8 hrs Not-Taking/PRN Valium 2 MG Tablet 1 tablet as needed Orally twice a day Not-Taking/PRN Diflucan 150 MG Tablet 2 tablets Orally once and repeat in oneweek Not-Taking/PRN Ibuprofen 800 MG Tablet 1 tablet Orally Three times a day Not-Taking/PRN Ventolin HFA 108 (90 Base) MCG/ACT Aerosol Solution 2 puffs as needed Inhalation every 6 hrs Medication List reviewed and reconciled with the patient * Allergies:?Morphine Sulfate: n/vGabapentin: visual disturbanceyes[Allergies Verified] Objective: * Vitals:?Ht: 74.25, Wt: 73, B WI:9.31, BP:122/68, Wt-k.11. weight? is 273? at home? BP 122/68? No? temp. * Examination: ???General Examination: ?GENERAL APPEARANCE:?coughing non stop.? Assessment: * Assessment: 1.?Acute pneumonia - J18.9 ( Primary)??? Plan: * Treatment: Notes: patient verbalized understanding of medication and directions for use?? * Procedure Codes:? * * Sign off status: Completed true * Provider:?Javed Gonzales MD Date:?0 04/21/2024 Generated for Anselmo galeas/Marisabel/eTshadyitting on:?06/01/2024 01:53 PM EDT History and Physical Notes * HPI (History of Present Illness) Category Sub-Category Detail Notes Category Not es Symptom(s) Telehealth Location of [facility] rendering services:: [address], [address] patient is a 58 yo male vide o telehealth here as emergency. went to walk in [...] time spend talking with patient (m inutes): 18 Examination Category Sub-Category Detail Notes Category Not es General Examination GENERAL APPEARANCE: coughing non s top
--- OUTSIDE RECORDS SUMMARY | 2024-06-01 13:53 | XMS_ITS | Patient Health Record ---
Author Organization [facility] Address [address] [place] [address] Care Team Providers Care Academic Affairs Specialist Name Role Phone Javed Gonzales MD Primary Care Provider Mejia Blanton Unavailable [phone] Allergies Allergen (clinical drug ingredient) Drug/Non Drug Allergy documented on EMR Reaction Allergy Type Onset Date Status morphine Morphine Sulfate Unknown Drug Allergy Active ? muscle relaxer (uncoded) Unknown Allergy Active Reason For Referral No Information Medications Medication SIG (Take, Route, Fr equency, Duration) Notes Start Date End Date Status Calcium 1 tab Oral Active Avalide 300-12.5 MG 1 tablet Orally Once a day Active Multi Vitamin/Minerals Orally Active Plaquenil 200 MG 1 tablet with food o r milk Orally Once a day Active predniSONE 7 mg 1 tablet with food o r milk Orally Once a day Active Immunizations Vaccine Route Administration Date Status Comme nts Influenza Unknown 01/03/2021 Administered Problems Problem Type SNOMED Code ICD Code Onset Dates Problem Status W/U Status Risk Notes Problem 270038577 Encounter for screening for malignant neoplasm of colon (Z12.11) Active confirmed Problem 602238233 History of adenomatous polyp of colon (Z86.010) Active confirmed Problem Screening for malignant neoplasm of rectum (394104247) Encounter for screening for malignant neoplasm of rectum (Z12.12) Active confirmed Problem 543792760 Gastroesophageal reflux disease without esophagitis (K21.9) Active confirmed Problem 564642974129073 Preprocedural examination (Z01.818) Active confirmed Problem 14880131 Hiatal hernia (K44.9) Active confirmed Problem Diverticulosis of colon (327181757) Diverticulosis of colon (K57.30) Active confirmed Plan Of Treatment Pending Test Test Name Order Date Pathology 04/10/2021 Future Test Test Name Order Date COLONOSCOPY 05/03/2015 COLONOSCOPY 01/10/2021 Insurance Providers Payer Name Payer Address Payer Phone Subscriber Number Group Number Insured Name Patient Relationship to Insured Coverage Start Date Coverage End Date [facility] [address] [place] [phone] [id number] DONY CANTOR Self - patient is the insured Medical (General) History Medical History History ICD Code HTN Pulmonary fibrosis--sees Dr. 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 Salas, a milieu manager at [facility] in [place]--he has been on long-term prednisone and plaquenil for that Gallstone seen on a CT scan in 2013 Pneumonia in 2006--caused a loss of the left collarbone and some fingertips--in the [facility] for 1 month He describes a condition [...]
--- OUTSIDE RECORDS SUMMARY | 2024-06-01 13:53 | XMS_ITS ---
Author Organization Javed Gonzales MD Address [address] [place], [place] [phone] Care Team Providers Care Automatic Pinsetter Mechanic Name Role Phone Javed Gonzales Primary Care [...] Location Date Provider Diagnosis Javed Gonzales MD [address] [place] [address] [place] [phone] 12/13/2023 Javed Gonzales Essential hypertensi on I10 [...] eds Next Appt Details Provider Name:Javed Amaro ier, 06/08/2024 08:30:00 AM, [address] [place] [address], Suite [facility], [place], [place], [phone], Progress Notes * Jeremías CANTOR PDOB:1965 (58 yo M)Acc No.[id number]:12/13/2023 Progress Notes Patient:?Jeremías Cantor Provider:?Javed Gonzales MD :1965???Age:58 Y???Sex:Male Jakob e:12/13/2023 Address: [address], [facility], [id number] Subjective: * Chief Complaints: * ???6 month [...] Verified] Objective: * Vitals:?Ht: 74.25, Wt:294, B MD:37.49, BP:120/65, Wt-k.36. * ???Past Orders: ???Lab:Liver Panel [...] Provider:?Javed Gonzales MD Date:?1 Generated for Anselmo galeas/Marisabel/Jennyferitting on:?06/01/2024 01:53 PM EDT History and Physical [...]
--- OUTSIDE RECORDS SUMMARY | 2024-06-01 13:53 | XMS_ITS | Clinical Summary ---
Author Organization [facility] Address [address] [place] [address] Phone Care Team Providers Care Telephone Operator Chief Name Role Phone Javed Gonzales MD Primary Care Provider Allergies Active Allergy Reactions Criticality Noted Date [...] Annual BMP Blood Test 01/06/2024 12/13/2022, 12/13/2022 RSV Immunization Patients 60+ Years Old (1 - 1-dose 75+ series) 2040 HIB Vaccines Aged Out No longer eligi [...] Test (12/13/2022) Annual BMP Blood Test Abstracted us Historical Provider MD HEALTH MAINTENANCE Final Result from Last 3 Months or Most Recently Relevant to Health Maintenance Insurance [facility] Advance Directives Documents on File Type Date Recorded Patient Orthopaedic General Expl anation Health Care Decision (hx) 12/26/2020 [...] (hx) 12/26/2020 AD SCOTT DIRECTIVE Care Teams Telephone Operator Chief Relationship Specialty Start Date End Date Javed Gonzales MD PCP - General Internal Medicine 03/11/12
--- OUTSIDE RECORDS SUMMARY | 2024-06-01 13:53 | XMS_ITS | Encounter Summary ---
Author Organization [facility] [place] [address] Care Team Providers Care Torch Solderer Name Role Phone Javed Gonzales MD Primary Care Provider Encounter Details Date Type Department Care Team (Late st Contact Info) Description 12/27/2023 7:55 AM EDT Hospital Encounter TH HISTORIC ENCOUNTERS EASTERN CONVERSION ONLY Deshawn Cortez MD [address] [place] [phone] Social History Tobacco Use Types Packs/Day Years [...] cut surfaces with a focal yellow stippling. ??Data Capture Clerk ? sections are submitted in one cassette, two pieces. ? TS ? Physicians: ? DESHAWN CORTEZ M.D./CARLOS/[id number] / ? HISTORICAL TESTING LAB RESULTING AGENCY 12/30/2023 us Laboratory Results Historical MD LAB PATHOLOGY O RDERABLES Final Result HISTORICAL TESTING LAB RESULTING AGENCY documented in this encounter Visit Diagnoses Not on filedocumented in this encounter Care Teams Torch Solderer Relationship Specialty Start Date End Date Javed Gonzales MD PCP - General Internal Medicine 03/11/12 documented as of this encounter
== END 2024-06-01 12:13 | disposition home or self-care (01) ==
LOC: HO.LNP 12:12
PROVIDERS: Visit Provider Internal Medicine
DX: Z00.00 Encounter for general adult medical examination without abnormal findings (principal); I10 Essential (primary) hypertension; E78.00 Pure hypercholesterolemia, unspecified; Z12.5 Encounter for screening for malignant neoplasm of prostate; Z13.1 Encounter for screening for diabetes mellitus
CPT/HCPCS: 80053; 80061; 81001; 82043; 82570; 83036; 84153; 85025

== ENCOUNTER → 2024-07-10 12:49 | Outpatient (REF) | payer OTHER, SELFPAY ==
--- NOTE | 2024-07-10 12:53 | CA_ITS ---
Transthoracic Echocardiogram Patient (Last, First, Middle): Jeremías Alonso P Gender: Male Date of : 1965 Age: 59 Procedure Date: 07/10/2024 Procedure Type: Transthoracic Echocardiogram Location: OP Height: 187.96 cm Weight: 113.4 kg BSA: 2.39 m2 Heart Rate: bpm BP: 124 / 82 mmHg Audit Control Clerk: Referring MD: Javed Gonzales MD Symptoms: R01.1 HEART MURMUR Study Quality: Adequate ECG Rhythm: Sinus Conclusions: - The left ventricular systolic function is normal. The visually estimated ejection fraction is between 60-65%. - There is mild calcification of the aortic valve. - No obvious valvular pathology seen on this study. - Moderate plaque is seen in the ascending aorta. Findings Left Ventricle Normal left ventricular cavity size. There is mildly increased left ventricular wall thickness. The left ventricular systolic function is normal. The visually estimated ejection fraction is between 60-65%. There is no evidence of regional wall motion abnormalities. Evidence suggests grade I (mild) diastolic dysfunction. Right Ventricle Mildly increased right ventricular cavity size. There is normal right ventricular systolic function. Atria Both atria are normal in size. Aortic Valve There is mild calcification of the aortic valve. There is no aortic valve stenosis. There is no aortic valve regurgitation. Mitral Valve The mitral valve appears normal. There is no mitral valve regurgitation. There is no mitral valve stenosis. Pulmonic Valve The pulmonic valve is likely normal. Tricuspid Valve There is trace tricuspid valve regurgitation. There is no evidence of pulmonary hypertension. Great Vessels Moderate plaque is seen in the ascending aorta. Top normal ascending aortic size at 3.8 cm. Venous The inferior vena cava is normal in size and collapses less than 50% with inspiration. Pericardium/Pleural There is no evidence of pericardial effusion. Prior Study Comparison No prior study available for comparison. Recommendations, Care & Conclusions No obvious valvular pathology seen on this study. Measurements 2D Linear Measurements IVSd: 1.27 0.6-0.9/0.6-1.0 cm LVIDd: 5.25 3.9-5.3/4.2-5.9 cm LVIDd Index: 2.20 2.4-3.2/2.2-3.1 cm/m2 LVIDs: 3.18 2.0-3.6 cm LVPWd: 1.22 0.7-1.1 cm Ao Root: 3.20 2.1-3.5 cm LA Diam: 3.90 2.7-3.8/3.0-4.0 cm LAIDs Index: 1.63 1.5-2.3 cm/m2 LV Mass: 331.74 67-162/88-224 g LV Mass Index: 138.80 43-95/49-115 g/m2 LVOT Diam: 2.20 3.0+(-)1.3 cm 2D Systolic Function EF 4C: 64.50 >55% EF 2C: 49.70 >55% EF BiP: 56.30 >55% Mitral Valve MV Pk E: 0.51 MV PK A: 0.80 MV Decel Time: 275.00 E/A: 0.60 E'Lateral: 11.40 E'Medial: 6.64 E/E' Med: 7.60 E/E' Lat: 4.40 PHT: 80.00 MVA PHT: 2.75 Decel [place]: 1.84 Aortic Valve AoV Pk Jonah: 1.98 AoV Mn Jonah: 1.19 AoV VTI: 0.36 AoV Pk Grad: 16.00 Aov Mn Grad: 7.00 JOSE L Cont.VTI: 1.96 LVOT LVOT Pk Jonah: 1.00 LVOT Mn Jonah: 0.68 LVOT VTI: 0.19 LVOT Pk Grad: 4.00 LVOT Mn Grad: 2.00 LVOT Diam: 2.20 LVOT Area: 3.80 Diastolic Function MV Pk E: 0.51 MV Pk A: 0.80 E/A: 0.60 E'Medial: 6.64 E/E' Med: 7.60 E' Laterial: 11.40 E/E' Lat: 4.40 Right Ventricle TAPSE (mm): 24.00 TVS' Jonah: 11.00 Tricuspid Valve TR Pk Jonah: 1.87 TR Pk Grad: 14.00 RA Press: 3.00 RVSP: 17.00 Great Vessels Aorta Ao Root-2D: 3.20 2.0-3.7 cm Ao Asc: 3.80 2.1-3.4 cm Pulmonary Valve PV Pk Jonah: 1.42 Peak PV Grad: 8.00 Updated in Other Vendor System with Status of Final Christopher Francis MD electronically signed on 07/11/2024 12:31:31 PM with status of Final
--- OUTSIDE RECORDS SUMMARY | 2024-07-10 12:53 | XMS_ITS | Clinical Summary ---
Author Organization [facility] Address [address] [place] [address] Care Team Providers Care Clinical Science Consultant Name Role Phone Javed Gonzales Primary Care Provider [phone] Allergies Active Allergy Reactions Criticality Noted Date [...] Take 1 capsule by mouth daily. Active methylPREDNISo lone (MEDROL) 4 mg tabletIndicati ons:Fibroblast ic disorder TAKE 1 TABLET TWICE A DAY 180 tablet 3 4 Active hydroxychloroq uine (PLAQUENIL) 200 mg tablet TAKE 1 TABLET TWICE A DAY 180 tablet 1 5 Active albuterol (PROAIR HFA,VENTOLIN HFA) 90 mcg inhaler SMARTSI Puff(s) Via Inhaler Every 4 Hours PRN 5 Active atorvastatin (LIPITOR) 20 mg tablet Take 1 tablet by mouth once a day. Active atorvastatin (LIPITOR) 40 mg tablet Take 20 mg by mouth once a day. 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 Pain of right calf 04/07/2015 Edema of left lower extremity 10/05/2014 IPF (idiopathic pulmonary fibrosis) 03/16/2013 Open Wound Of The Shoulder 12/13/2008 Hypertension 12/13/2008 Morphea 12/13/2008 Pneumonia 12/13/2008 Vitamin d deficiency 11/04/2008 Fasciitis 11/02/2008 Encounters Date Type Department Care Team Description 07/03/2024 11:20 AM EDT Office Visit [facility] [address] [place] [address] Commodity Director: Kam Gutiérrez DO Diffuse fasciitis (Primary Dx); Idiopathic pulmonary fibrosis (HCC); 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 from Last 3 Months Immunizations Immunization Administration [...] Sign Reading Time Taken Comments Blood Pressure 120/67 07/03/2024 11:04 AM EDT Pulse 67 07/03/2024 11:04 AM EDT Temperature 36.6 ??C (97.8 ??F) 07/03/2024 11:04 AM E DT Respiratory Rate - - Oxygen Saturation 95% 10/26/2013 2:59 PM EDT Inhaled Oxygen Concentration - - Weight 115.2 kg (254 lb) 07/03/2024 11:04 AM EDT Height 188 cm (6' 2 ) 07/03/2024 11:04 AM EDT Body Mass Index 32.61 07/03/2024 11:04 AM EDT Plan of Treatment Upcoming Encounters Date Type Department Care Team (Late st Contact Info) Description 01/06/2025 8:00 AM EST Follow-Up [facility] [address] [place] [address] Commodity Director: Kam Gutiérrez DO [address] [facility] [place] [address] Health Maintenance Due Date Last Done Comments [...] Additional history exists Procedures * Due to [place] [employer] law, this organization might not be sharing negative HIV tests. 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 CBC AUTO DIFFERENTIAL Routine 07/03/2024 12:41 PM EDT Diffuse fasciitis HEPATIC FUNCTION PANEL Routine 12:41 PM EDT Diffuse fasciitis CREATININE Routine 07/03/2024 12:41 PM EDT Diffuse fasciitis C-REACTIVE PROTEIN Routine 07/03/2024 12 :41 PM EDT Idiopathic pulmonary fibrosis (HCC) SEDIMENTATION RATE, AUTOMATED Routine 07/03/2024 12:41 PM EDT Idiopathic pulmonary fibrosis (HCC) VITAMIN D, 25-HYDROXY, TOTAL, IMMUNOASSAY Routine 07/03/2024 12:41 PM EDT USP current use of systemic steroids BASIC METABOLIC PANEL Routine 12/13/2022 10:02 AM EDT Diffuse fasciitis from Last 3 Months or Most Recently Relevant to Health Maintenance Results * Due to [place] [employer] law, this organization might not be sharing negative HIV tests. * (ABNORMAL) CBC Auto Differential (07/03/2024 12:41 PM EDT) WBC 7.0 3.8 - 10.8 10*3/uL 07/03/2024 1:53 PM EDT [facility] RBC 4.84 4.20 - 5.80 10*6/uL 07/03/2024 1:53 PM EDT [facility] Hemoglobin 14.9 13.2 - 17.1 g/dL 07/03/2024 1:53 PM EDT [facility] Hematocrit 44.8 38.5 - 50.0 % 07/03/2024 1:53 PM EDT [facility] MCV 92.6 80.0 - 100.0 fL 07/03/2024 1:53 PM EDT [facility] MCH 30.8 27.0 - 33.0 pg 07/03/2024 1:53 PM EDT [facility] MCHC 33.3 32.0 - 36.0 g/dL 07/03/2024 1:53 PM EDT [facility] RDW 13.7 11.0 - 15.0 % 07/03/2024 1:53 PM EDT [facility] Platelets 193 140 - 400 10*3/uL 07/03/2024 1:53 PM EDT [facility] MPV 10.3 7.5 - 12.5 fL 07/03/2024 1:53 PM EDT [facility] Neutrophil % 83.4 % 07/03/2024 1:53 PM EDT [facility] Immature Grans % 0.3 0.0 - 0.9 % 07/03/2024 1:53 PM EDT [facility] Lymphocyte % 9.4 % 07/03/2024 1:53 PM EDT [facility] Monocyte % 6.2 % 07/03/2024 1:53 PM EDT [facility] Eosinophil % 0.3 % 07/03/2024 1:53 PM EDT [facility] Basophil % 0.4 % 07/03/2024 1:53 PM EDT [facility] Neutrophil # 5.83 1.50 - 7.80 10*3/uL 07/03/2024 1:53 PM EDT [facility] Immature Grans # <0.03 <=0.03 10*3/uL 07/03/2024 1:53 PM EDT [facility] Lymphocyte # 0.70(L) 0.85 - 3.90 10*3/uL 07/03/2024 1:53 PM EDT [facility] Monocyte # 0.40 0.20 - 0.95 10*3/uL 07/03/2024 1:53 PM EDT [facility] Eosinophil # <0.03 0.02 - 0.50 10*3/uL 07/03/2024 1:53 PM EDT [facility] Basophil # <0.03 0.00 - 0.20 10*3/uL 07/03/2024 1:53 PM EDT [facility] nRBC % 0.0 /100 WBCs 07/03/2024 1:53 PM EDT [facility] nRBC # <0.01 <0.01 10*3/uL 07/03/2024 1:53 PM EDT [facility] Blood Structure of peripheral vein / Unknown Venipuncture / Unknown 07/03/2024 12:41 PM EDT 07/03/2024 1:39 PM EDT us Kam Cooney DO LAB BLOOD ORDERABLES Final Res ult [facility] [address] [place] [address], [place] * Aldolase (07/03/2024 12:41 PM EDT) Pathologist [facility] Aldolase 6.7 <=8.1 U/L 07/06/2024 9:5 4 PM EDT [facility] ROBBI (CABALLERO) Blood Structure of peripheral vein / Unknown Venipuncture / Unknown 07/03/2024 12:41 PM EDT 07/03/2024 1:39 PM EDT Narrative MICHELLE CONNELLY - 07/06/2024 9:54 PM EDT [facility] Received Date: us Kam Cooney DO LAB BLOOD ORDERABLES Final Res ult MICHELLE CONNELLY [address] [place] [address] 3rd Floor, [place] [address], MICHELLE CULP (CABALLERO) [address] [place] [address] , [place] * Vitamin D, 25-Hydroxy, Total, Immunoassay (07/03/2024 12:41 PM EDT) Pathologist [facility] Calcidiol+ercalc idiol 38 30 - 100 ng/mL 07/03/2024 10:29 PM EDT [facility] Comment: Vitamin D Status ? 25-OH Vitamin D: Deficiency: ?<20 ng/mL Insufficiency: ? 20 - 29 ng/mL Optimal: ? > or = 30 ng/mL For 25-OH Vitamin D testing on patients on D2-supplementation and patients for whom quantitation of D2 and D3 fractions is required, the QuestAssureD() 25-OH VIT D, (D2,D3), LC/MS/MS is recommended: order code [id number] (patients >2yrs). See Note 1 Note 1 For additional information, please refer to http://education.BountyHunter/faq/ZGR329 (This link is being provided for informational/ educational purposes only.) Blood Structure of peripheral vein / Unknown Venipuncture / Unknown 07/03/2024 12:41 PM EDT 07/03/2024 1:39 PM EDT Narrative [facility] - 07/03/2024 10:29 PM EDT [facility] Received Date:[id number] us Kam Eros DO LAB BLOOD ORDERABLES Final Res ult [facility] [address] [facility] [address], [place] [address], [place] [phone] [facility] [address] [facility] [address], [place] [address], [place] [phone] * Sedimentation Rate (07/03/2024 12:41 PM EDT) Sed Rate 5 <20 mm/Hr mm/Hr 07/03/2024 1:59 PM EDT [facility] Blood Structure of peripheral vein / Unknown Venipuncture / Unknown 07/03/2024 12:41 PM EDT 07/03/2024 1:39 PM EDT us Kam Cooney DO LAB BLOOD ORDERABLES Final Res ult Performing Organization Address City/[facility]/ZIP Co de Phone Number [facility] [address] [place] [id number], * C-Reactive Protein (07/03/2024 12:41 PM EDT) C Reactive Protein <3.0 <=9.9 mg/L 07/03/2024 2:26 PM EDT [facility] Blood Structure of peripheral vein / Unknown Venipuncture / Unknown 07/03/2024 12:41 PM EDT 07/03/2024 1:39 PM EDT us Kam Eros DO LAB BLOOD ORDERABLES Final Res ult [facility] [address] [place] [address], [place] * (ABNORMAL) PTH, Intact (without Calcium) (07/03/2024 12:41 PM EDT) Parathyroid Hormone, Intact 14(L) 16 - 77 pg/mL 07/04/2024 8:30 AM EDT [facility] Comment: Interpretive Guide ?Intact PTH ? Calcium ? ------- Normal Parathyroid ?Normal ? Normal Hypoparathyroidism ?Low or Low Normal ?Low Hyperparathyroidism ?? Primary ?Normal or High ? High ?? Secondary ?High ? Normal or Low ?? Tertiary ? High ? High Non-Parathyroid ?? Hypercalcemia ?Low or Low Normal ?High Blood Structure of peripheral vein / Unknown Venipuncture / Unknown 07/03/2024 12:41 PM EDT 07/03/2024 1:39 PM EDT Narrative [facility]HEL[facility] CARP[facility]DIGN[facility] - 07/04/2024 8:30 AM EDT [facility] Received Date: us Kam Cooney DO LAB BLOOD ORDERABLES Final Res ult [facility] [address] [facility] 3rd [address], [place] [address], [place] [phone] [employer] [facility] [address] [facility] [address], [place] [address], [place] [phone] * Creatinine (07/03/2024 12:41 PM EDT) Creatinine 0.68 0.60 - 1.30 mg/dL 07/03/2024 2:24 PM EDT [facility] eGFR >90 >=60 mL/min/1. 73m2 07/03/2024 2:24 PM EDT [facility] [...] peripheral vein / Unknown Venipuncture / Unknown 07/03/2024 12:41 PM EDT 07/03/2024 1:39 PM EDT us Kam Eros DO LAB BLOOD ORDERABLES Final Res ult [facility] [address] [place] [id number], * CK (07/03/2024 12:41 PM EDT) CK 102 49 - 348 U/L 07/03/2024 2:24 PM EDT [facility] Blood Structure of peripheral vein / Unknown Venipuncture / Unknown 07/03/2024 12:41 PM EDT 07/03/2024 1:39 PM EDT us Kam Eros DO LAB BLOOD ORDERABLES Final Res ult [facility] [address] [place] [address], * (ABNORMAL) Hepatic Function Panel (07/03/2024 12:41 PM EDT) Total Protein 7.1 6.0 - 8.0 g/dL 07/03/2024 2:24 PM EDT [facility] Albumin 4.3 3.5 - 5.2 g/dL 07/03/2024 2:24 PM EDT [facility] Globulin, Total 2.8 2.1 - 4.2 g/dL 07/03/2024 2:24 PM EDT [facility] Bilirubin, Total 1.6(H) 0.2 - 1.2 mg/dL 07/03/2024 2:24 PM EDT [facility] Bilirubin, Direct 0.5(H) <=0.4 mg/dL 07/03/2024 2:24 PM EDT [facility] Alkaline Phosphatase 50 35 - 129 U/L 07/03/2024 2:24 PM EDT [facility] AST 31 10 - 40 U/L 07/03/2024 2:24 PM EDT [facility] ALT 27 10 - 40 U/L 07/03/2024 2:24 PM EDT [facility] Bilirubin, Indirect 1.10(H) <=0.70 mg/dL 07/03/2024 2:24 PM EDT [facility] A/G Ratio 1.5 1.5 - 3.0 07/03/2024 2:24 PM EDT [facility] Blood Structure of peripheral vein / Unknown Venipuncture / Unknown 07/03/2024 12:41 PM EDT 07/03/2024 1:39 PM EDT us Kam Cooney DO LAB BLOOD ORDERABLES Final Res ult [facility] [address] [place] [address], [place] * (ABNORMAL) Basic Metabolic Panel (12/13/2022 10:02 [...] - 99 mg/dL 12/13/2022 11:20 AM EDT [facility] Calcium 9.5 8.7 - 10.7 mg/dL 12/13/2022 11:20 AM EDT [facility] Anion Gap 5 5 - 15 12/13/2022 11:20 AM EDT [facility] eGFR >90 >=60 mL/min/1. 73m2 [...] be flagged. For additional information, see Shreyas quinonez al, Am J Kidney Dis. 2021;79(2):268- 288, [...] [facility] [address] [place] [address], [place] from Last 3 Months or Most Recently Relevant to Health Maintenance Insurance [employer] Care Teams Clinical Science Consultant Relationship Specialty Start Date End Date Javed Gonzales [address] [place] [address] dr Alvarez [place] [id number] PCP - General 09/20/16
--- OUTSIDE RECORDS SUMMARY | 2024-07-10 12:53 | XMS_ITS | Encounter Summary ---
Author Organization [facility] [place] [address] Care Team Providers Care Worship Director Name Role Phone Javed Gonzales MD Primary Care Provider Encounter Details Date Type Department Care Team (Late st Contact Info) Description 12/27/2023 7:55 AM EDT Hospital Encounter TH HISTORIC ENCOUNTERS EASTERN CONVERSION ONLY Deshawn Cortez MD [address] [place] [id number] Social History Tobacco Use Types Packs/Day Years [...] cut surfaces with a focal yellow stippling. ??Matcher Operator ? sections are submitted in one cassette, two pieces. ? TS ? Physicians: ? DESHAWN CORTEZ M.D./CARLOS/[phone] / ? HISTORICAL TESTING LAB RESULTING AGENCY 12/30/2023 us Laboratory Results Historical MD LAB PATHOLOGY O RDERABLES Final Result HISTORICAL TESTING LAB RESULTING AGENCY documented in this encounter Visit Diagnoses Not on filedocumented in this encounter Care Teams Worship Director Relationship Specialty Start Date End Date Javed Gonzales MD PCP - General Internal Medicine 03/11/12 documented as of this encounter
--- OUTSIDE RECORDS SUMMARY | 2024-07-10 12:53 | XMS_ITS | Clinical Summary ---
Author Organization [address] [facility] Address [address] [place] [address] Phone Care Team Providers Care Waist Pleater Name Role Phone Javed Gonzales MD Primary Care Provider [phone] Allergies Active Allergy Reactions Criticality Noted Date [...] left lower extremity 10/05/2014 IPF (idiopathic pulmonary fi brosis) ([facility] V24, [facility] V28) 03/16/2013 Hypertension 12/13/2008 Morphea 12/13/2008 Open wound [...] 02/04/2022 Social Influencers of Health Screening 02/04/2022 Hypertension/CHF/CAD Annual BMP Blood Test 01/06/2024 12/13/2022, 12/13/2022 Influenza Vaccine (Season Ended) 2024 12/13/2022, 12/23/2001, 02/10/2001, Additional history exists RSV Immunization Adult Patients (1 - 1-dose 75+ series) 2040 HIB [...] age to complete this topic Meningococcal B Vaccine Aged Out No l onger eligible based on patient's age to complete [...] BMP Blood Test Abstracted us Historical Provider HEALTH MAINTENANCE Final Result from Last 3 Months or Most Recently Relevant to Health Maintenance Insurance [facility] Advance Directives Documents on File Type Date Recorded Patient Manager Statistical Expl anation Health Care Decision (hx) 12/26/2020 [...] (hx) 12/26/2020 AD SCOTT DIRECTIVE Care Teams Waist Pleater Relationship Specialty Start Date End Date Javed Gonzales MD PCP - General Internal Medicine 03/11/12
--- OUTSIDE RECORDS SUMMARY | 2024-07-10 12:53 | XMS_ITS ---
Author Organization Javed Gonzales MD Address [address] [place], [place] [id number] Care Team Providers Care Tyre Finisher And Examiner Name Role Phone Javed Gonzales Primary Care Provider Allergies Allergen (clinical drug ingredient) Drug/Non Drug Allergy documented on EMR Reaction Allergy Type Onset Date Status morphine Morphine Sulfate n/v Drug Allergy Active gabapentin Gabapentin (uncoded) visual disturbance Allergy Active Results Component Value Reference Range Notes SARS-CoV2/FLU/RSV Reviewed date:04/21/2024 12:25:26 PM Interpretation: Performing Lab:[facility], [address] [place] [phone] Notes/Report: Influenza A PCR NEGATIVE Negative Influenza [...] by authorized laboratories. Testing performed on the [employer] GeneXpert utilizing real-time RT-PCR. All SARS CoV2 and positive influenza A/B results are reported to [facility]. REASON FOR VISIT Coughing, was seen by [facility] on Saturday in [place] [phone], ? Pneumonia ? for him to have a CT chest, Video [phone] Medications Medication SIG (Take, Route, Frequency, Duration) [...] Location Date Provider Diagnosis Javed Gonzales MD [address] [place] [address] [place] [phone] 04/21/2024 Javed Gonzales Acute pneumonia J18.9 Assessments [...] Next Appt Details Provider Name:Javed Amaro ier, 12/15/2024 07:00:00 AM, [address] [place] [address], Suite [facility], [place], [place], [phone], Provider Name:Javed Amaro ier, 12/21/2024 08:30:00 AM, [address] [place] [address], [place] [address], [place], [place], [phone], Provider Name:Javed Amaro ier, 06/03/2025 07:30:00 AM, [address] [place] [address], [address], [phone], Provider Name:Javed Amaro ier, 06/10/2025 08:30:00 AM, [address] [place] [address], [address], [phone], Progress Notes * Jeremías CANTOR PDOB:1965 (58 yo M)Acc No.[id number]:04/21/2024 Patient:?Jeremías CANTOR Provider:?Javed Gonzales MD :1965???Age:58 Y???Sex:Male Jakob e:04/21/2024 Address:[address], [facility], [id number] Subjective: * Chief Complaints: * ???Coughing, was seen by [facility] on Saturday in [place] [phone]? Pneumonia ? for him to have a CT chestVideo [phone] * HPI: ???Symptom(s):?Telehealth?Location of provider rendering services:?10 [...] Objective: * Vitals:?Ht: 74.25, Wt: 73, B IN:9.31, BP:122/68, Wt-k.11. weight? is 273? at home? BP 122/68? No? temp. * Examination: ???General Examination: ?GENERAL APPEARANCE:?coughing non stop.? Assessment: * Assessment: 1.?Acute pneumonia - J18.9 ( Primary)??? Plan: * Treatment: Notes: patient verbalized understanding of medication and directions for use?? * Procedure Codes:? * * Sign off status: Completed true * Provider:?Javed Gonzales MD Date:?0 04/21/2024 Generated for Anselmo galeas/Marisabel/Siri on:?07/10/2024 12:53 PM EDT History and Physical Notes * HPI (History of Present Illness) Category Sub-Category Detail Notes Category Not es Symptom(s) Telehealth [facility] [address], [address] [...]
--- OUTSIDE RECORDS SUMMARY | 2024-07-10 12:53 | XMS_ITS | Patient Health Record ---
Author Organization Javed Gonzales MD Address [address] [place], [place] [id number] Care Team Providers Care Peer Financial Counselor Name Role Phone Javed Gonzales Primary Care Provider [phone] Allergies Allergen (clinical drug ingredient) Drug/Non Drug Allergy documented on EMR Reaction Allergy Type Onset Date Status morphine Morphine Sulfate n/v Drug Allergy Active gabapentin Gabapentin (uncoded) visual disturbance Allergy Active Results Component Value Reference Range Notes Liver Panel Reviewed date:12/05/2023 04:16:55 PM Interpretation: Performing Lab:[facility], [address] [place] [phone] Notes/Report: Bilirubin Total 1.8 0.0-1.0 mg/dL Bilirubin Direct 0.5 0.0-0.5 mg/dL Aspartate Amino Transferase 27 5-37 U/L Alanine Aminotransferase 32 0-40 U/L Total Protein 6.8 6.5-8.0 g/dL Albumin Level 4.1 3.5-5.0 g/dL Alkaline Phosphatase 52 39-117 U/L Lipid Panel with Reflex Reviewed date:12/05/2023 04:18:53 PM Interpretation: Performing Lab:[facility], [address] [place] [phone] Notes/Report: Triglycerides 106 <150 mg/dL Desirable Triglyceride: [...] low results in patients with liver disease. Complete Blood Count Auto Di ff Reviewed date:06/01/2024 04:34:27 PM Interpretation: Performing Lab:[facility], [address] [place] [phone] Notes/Report: White Blood Count 6.1 4.8-10.8 X10*3/uL [...] X10*3/uL NRBC Abs Auto 0.000 0.0-0.012 X10*3/uL Lipid Panel Reviewed date:06/01/2024 01:52:31 PM Interpretation: Performing Lab:[address] [phone] Notes/Report: Triglycerides 78 <150 mg/dL Desirable Triglyceride: [...] (Free>4and<10) Reviewed date:06/01/2024 01:41:54 PM Interpretation: Performing Lab:[address] [phone] Notes/Report: PSA,Total (Free>4and<10) 1.51 0.00-4.00 ng/mL A [...] Random Reviewed date:06/01/2024 01:49:05 PM Interpretation: Performing Lab:[address] [phone] Notes/Report: Creatinine Urine 274.70 Microalbumin Urine 10.0 Microalbum/Creatinine Ratio Ur 3.6 <30 ug/mg cr Albumin/Creatinine Ratio Reference Ranges: Normal: < 30 ug/mg creatinine Microalbuminuria: 30 - 300 ug/mg creatinine Clinical Albuminuria: > 300 ug/mg creatinine Hemoglobin A1c Reviewed date:06/01/2024 01:43:03 PM Interpretation: Performing Lab:[facility], [address] [place] [phone] Notes/Report: Hemoglobin A1c % 5.2 <6.0 % [...] average glucose, using the formula of the X6S-Rvrwwnx Average Glucose study (ADAG), Diabetes Care, Vol.31,#8, Oct. 2007 UA ClnCatch+Micro w/rflx Cul t Reviewed date:06/01/2024 01:53:58 PM Interpretation: Performing Lab:[facility], [address] [place] [phone] Notes/Report: Urine, Clean Catch Color Urine Dark Yellow Appearance Urine Clear PH 6.5 5.0-9.0 Glucose Urine UA Negative Negative mg/dL Urine Blood Negative Negative Specific Indian - Urine 1.025 1.005-1.025 Urine Protein 30 (1+) Neg-Trace mg/dL Urine Ketones Negative Negative mg/dL Nitrite Urine Negative Negative Leukocyte Esterase Urine Negative Negative RBC Urine 0-2 0-2 /HPF WBC Urine 0-5 0-5 /HPF Squamous Epithelial Cell Urine 0-2 0-2 /HPF Bacteria Urine None Seen None Seen Hyaline Casts Urine 0-2 0-2 /LPF SARS-CoV2/FLU/RSV Reviewed date:04/21/2024 12:25:26 PM Interpretation: Performing Lab:[facility], [address] [place] [phone] Notes/Report: Influenza A PCR NEGATIVE Negative Influenza [...] by authorized laboratories. Testing performed on the [employer] GeneXpert utilizing real-time RT-PCR. All SARS CoV2 and positive influenza A/B results are reported to [facility]. Occult Blood, Stool, Guaiac Reviewed date:06/08/2024 11:23:12 AM Interpretation:Negative Performing Lab: Notes/Report: Negative Occult Blood, Stool, Guaiac Neg Hold Gold Reviewed date:12/05/2023 12:21:53 PM Interpretation: Performing Lab:[facility], [address] [place] [phone] Notes/Report: Hold Gold See Note Specimen held untested for 24 hours; Call to request Chemistry testing. Comprehensive Met. Panel Reviewed date:06/01/2024 01:40:27 PM Interpretation: Performing Lab:[facility], [address] [place] [phone] Notes/Report: Sodium 143 135-145 mmol/L Potassium 3.7 3.3-5.1 mmol/L Chloride 106 96-108 mmol/L Carbon Dioxide 30 22-29 mmol/L Anion Gap 11 12-20 Blood Urea Nitrogen 14 9-16 mg/dL Creatinine 0.72 0.5-1.4 mg/dL Estimated Glomerular Filt Rate > 60 Chronic Kidney Disease: Estimated GFR < 60 mL/min/1.73m2 Severe Kidney Disease: Estimated GFR < 15 mL/min/1.73m2 Glucose Random 83 60-115 mg/dL Calcium 9.0 8.4-10.2 mg/dL Bilirubin Total 1.6 0.0-1.0 mg/dL Aspartate Amino Transferase 32 5-37 U/L Alanine Aminotransferase 37 0-40 U/L Total Protein 6.3 6.5-8.0 g/dL Albumin Level 4.0 3.5-5.0 g/dL Alkaline Phosphatase 41 39-117 U/L Reason For Referral No Information Medications Medication SIG (Take, Route, Frequency, Duration) Notes Start Date End Date Status methylPREDNISolone 4 MG 2 tablets with f ood or milk in the morning Oral once a day Active Plaquenil 200 MG 1 tablets with food or milk Orally once a day Active Ventolin HFA 108 (90 Base) MCG/ACT 2 puffs as needed Inhalation every 6 hrs for 30 days 03/15/2017 Not-Taking Calcium 600 MG 2 tablets with meals Orally Once a day Active Ibuprofen 800 MG 1 tablet Orally Three times a day for 30 06/23/2013 Not-Taking Diflucan 150 MG 2 tablets Orally once and repeat in oneweek for 2 days 12/21/2019 Not-Taking Valium 2 MG 1 tablet as needed Orally twice a day for 7 days 07/04/2023 Not-Taking Ibuprofen 800 MG 1 tablet with food or milk as needed Orally every 8 hrs Not-Taking Albuterol Sulfate HFA 108 (90 Base) MCG/ACT 1 puff as needed Inhalation every 4 hrs 04/21/2024 Active Valsartan-hydroCHLOROthiazid e 320-12.5 MG TAKE 1 TABLET DAILY Active Atorvastatin Calcium 20 MG take 1 tablet by mouth every day for 30 days Orally Once a day Active Immunizations Vaccine Route Administration Date Status Comme nts Flu Vaccine Unknown 11/02/2010 Administered Flu Vaccine IM Intramuscular 12/04/2011 Administered Flu Vaccine Unknown 12/25/2012 Administered Flu Vaccine Unknown 01/30/2014 Administered [facility] TDaP IM Intramuscular 02/04/2014 Administered PPSV23 (Pnemovax) Unknown 02/08/2014 Administered PPSV23 (Pnemovax) IM Intramuscular 02/08/2014 Administered Fluarix Quadrivalent IM Intramuscular 11/30/2014 Administe red Fluarix Quadrivalent IM Intramuscular 11/08/2015 Administe red Fluarix Quadrivalent IM Intramuscular 12/03/2016 Administe red Fluarix Quadrivalent Unknown 12/03/2017 Administered At work Fluarix Quadrivalent IM Intramuscular 12/11/2018 Administe red PPSV23 (Pnemovax) IM Intramuscular 04/13/2019 Administered Fluarix Quadrivalent IM Intramuscular 11/25/2019 Administe red Tetanus Unknown 02/04/2014 Administered Covid Vaccine Unknown 04/26/2020 Administered Moderna SARS-COV-2 Moderna Unknown 05/24/2020 Administered Fluarix Quadrivalent IM Intramuscular 11/18/2020 Administe red Fluarix Quadrivalent IM Intramuscular 11/23/2021 Administe red SARS-COV-2 Moderna Unknown 01/13/2021 Administered SARS-COV-2 Moderna Unknown 09/15/2021 Administered SARS-COV-2 Moderna Unknown 12/08/2021 Administered Shingrix Unknown 09/14/2022 Administered [facility] SARS-COV-2 Moderna Unknown 12/01/2022 [facility]ered [facility] Shingrix Unknown 12/28/2022 [facility]ered [facility] Tetanus Unknown 02/04/2014 Pending Social History Tobacco Use: Social History Observation [...] ast year? No Points 0 Interpretation Negative Problems Problem Type SNOMED Code ICD Code Onset Dates Problem Status W/U Status Risk Notes Problem 055682840 Atherosclerotic heart disease of [place] coronary artery without angina pectoris (I25.10) Active confirmed Problem 381431490 Reflux esophagit is (K21.00) Active confirmed Problem 88853458 Tinnitus, left e ar (H93.12) Active confirmed Problem Tinnitus, bilate ral (H93.13) Active confirmed Problem 62361490 Essential hypertension (I10) Active confirmed Problem 76011830 RBBB (I45.10) Active confirmed Problem 781811596 History of hematuria (Z87.448) Active confirmed Problem 947000130 Interstitial sophia g disease (J84.9) Active confirmed Problem 0848551 Calcinosis (E83.59) Active confirmed Problem 817104625 Claudication (I73.9) Active confirmed Problem hypercholesterolemia (disorder) (99690500) Hypercholesteremia (E78.00) Active confirmed Problem 84510063 Testicular nodul e (N50.89) Active confirmed Problem 817026098 Chondrocalcinosi s, cause unspecified, involving multiple sites (M11.29) Active confirmed Problem 358795122 Coronary artery calcification seen on CAT scan (I25.10) Active confirmed Problem 46718189 New onset tinnit us of left ear (H93.12) Active confirmed Vital Signs Blood pressure diastolic 60 mm Hg 06/08/2024 birdie ght is down 28 pounds since 12-13-23 Height 74.25 in 06/08/2024 weight is down 28 pounds since 12-13-23 Blood pressure systolic 122 mm Hg 06/08/2024 birdieg ht is down 28 pounds since 12-13-23 Weight 266 lbs 06/08/2024 weight is down 28 pounds since 12-13-23 BMI 33.92 kg/m2 06/08/2024 weight is down 28 pounds since 12-13-23 Encounters Encounter Location Date Provider Diagnosis Javed Gonzales MD [address] [place] [id number] 12/05/2023 Javed Gonzales Hypercholesteremia E 78.00 Javed Gonzales MD [address] [place] [id number] 06/01/2024 Javed Gonzales Blood tests for rout ine general physical examination Z00.00 ; Essential hypertension I10 and Hypercholesteremia E78.00 Javed Gonzales MD [address] [place] [id number] 12/13/2023 Javed Gonzales Essential hypertensi on I10 and Hypercholesteremia E78.00 Javed Gonzales MD [address] [place] [id number] 04/21/2024 Javed Gonzales Acute pneumonia J18. 9 Javed Gonzales MD [address] [place] [id number] 06/08/2024 Javed Gonzales Adult general medica l examination Z00.00 ; Heart murmur R01.1 ; Interstitial lung disease J84.9 ; Essential hypertension I10 ; Calcinosis E83.59 ; Hypercholesteremia E78.00 ; Colon cancer screening Z12.11 and Depression screening Z13.31 Javed Gonzales MD [address] [place] [id number] 07/16/2023 Javed Gonzales MD [address] [place] [id number] 11/26/2023 Javed Gonzales Hypercholesteremia E 78.00 Assessments Encounter Date Diagnosis (ICD Code) Assessment Notes Treatment Notes Treatment Clinical Notes Section Notes 12/05/2023 Hypercholesteremia (ICD-10 - E78.00) 06/01/2024 Blood tests for routine general physical examination (ICD-10 - Z00.00) 12/13/2023 Essential hypertension (ICD-10 - I10) well controlled on meds 12/13/2023 Hypercholesteremia (ICD-10 - E78.00) well controlled on meds 04/21/2024 Acute pneumonia (ICD-10 - J18.9) patient verbalized understanding of medication and directions for use 06/08/2024 Adult general medica l examination (ICD-10 - Z00.00) labs reviewed and discussed with patient, order faxed to [facility] dept 06/08/2024 Heart murmur (ICD-10 - R01.1) stable, will conitnue to monitor 11/26/2023 Hypercholesteremia (ICD-10 - E78.00) 06/01/2024 Essential hypertension (ICD-10 - I10) 06/08/2024 Interstitial lung disease (ICD-10 - J84.9) no complaints 06/01/2024 Hypercholesteremia (ICD-10 - E78.00) 06/08/2024 Essential hypertension (ICD-10 - I10) well controlled, will continue current regiment 06/08/2024 Calcinosis (ICD-10 - E83.59) continues to have surgery, will continue to monitor 06/08/2024 Hypercholesteremia (ICD-10 - E78.00) stale, will continue current regiment 06/08/2024 Colon cancer screening (ICD-10 - Z12.11) guaiac negative 06/08/2024 Depression screening (ICD-10 - Z13.31) negative screen Plan Of Treatment Pending Test Test Name Order Date Electrocardiogram (EKG) 04/19/2017 Electrocardiogram (EKG) 03/15/2016 ECHO EXAM OF HEART 04/15/2015 CT CHEST W&WO CONTRAST 11/27/2012 MRI CERVICAL SPINE NO CONTRAST 2 MRI THORACIC SPINE NO CONTRAST 2 XR CHEST 2 VIEW PA & LAT 10/25/2015 XR CHEST 2 VIEW PA & LAT 11/25/2012 US ARTERY SEGMENTAL MULTILEVEL 02/12/201 6 ECHO 06/08/2024 Comprehensive [place]. Panel Fast 5 Next Appt Details Provider Name:Javed Amaro ier, 12/15/2024 07:00:00 AM, [address], [address], [place], [id number], Provider Name:Javed Amaro ier, 12/21/2024 08:30:00 AM, [address], [address], [place], [phone], Provider Name:Javed Amaro ier, 06/03/2025 07:30:00 AM, [address], [address], [place], [place], [id number], Provider Name:Javed Amaro ier, 06/10/2025 08:30:00 AM, [address], [address], [place], [place], [id number], Insurance Providers Payer Name Payer Address Payer Phone Subscriber Number Group Number Insured Name Patient Relationship to Insured Coverage Start Date Coverage End Date [address] [place] [phone] [id number] Jeremías Alonso Self - patient is the insured [address] [phone] [id number] Jeremías Alonso Self - patient is the insured Medical (General) History Medical History History ICD Code hematuria with biopsy of bladder endoscopy - 12/14/14 dependi ng on biospy, repeat 3 yrs; colonoscopy done 07/06/15 - Dr. Gardner (repeat 5 years tubular adenoma):04/10/21 colonoscopy repeat 5yrs Hx of Low HDL (under 40) E78.6 Bone Density 2020 Negative Surgical History Surgery Date(Month/Year) Lt Inguinal Hernia 07/2013
--- OUTSIDE RECORDS SUMMARY | 2024-07-10 12:53 | XMS_ITS | Referral Summary ---
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 * (ABNORMAL) CBC Auto Differential (07/03/2024 12:41 PM EDT) WBC 7.0 3.8 - 10.8 10*3/uL 07/03/2024 1:53 PM EDT [facility] RBC 4.84 4.20 - 5.80 10*6/uL 07/03/2024 1:53 PM EDT [facility] Hemoglobin 14.9 13.2 - 17.1 g/dL 07/03/2024 1:53 PM EDT [facility] Hematocrit 44.8 38.5 - 50.0 % 07/03/2024 1:53 PM EDT [facility] MCV 92.6 80.0 - 100.0 fL 07/03/2024 1:53 PM EDT [facility] MCH 30.8 27.0 - 33.0 pg 07/03/2024 1:53 PM EDT [facility] MCHC 33.3 32.0 - 36.0 g/dL 07/03/2024 1:53 PM EDT [facility] RDW 13.7 11.0 - 15.0 % 07/03/2024 1:53 PM EDT [facility] Platelets 193 140 - 400 10*3/uL 07/03/2024 1:53 PM EDT [facility] MPV 10.3 7.5 - 12.5 fL 07/03/2024 1:53 PM EDT [facility] Neutrophil % 83.4 % 07/03/2024 1:53 PM EDT [facility] Immature Grans % 0.3 0.0 - 0.9 % 07/03/2024 1:53 PM EDT [facility] Lymphocyte % 9.4 % 07/03/2024 1:53 PM EDT [facility] Monocyte % 6.2 % 07/03/2024 1:53 PM EDT [facility] Eosinophil % 0.3 % 07/03/2024 1:53 PM EDT [facility] Basophil % 0.4 % 07/03/2024 1:53 PM EDT [facility] Neutrophil # 5.83 1.50 - 7.80 10*3/uL 07/03/2024 1:53 PM EDT [facility] Immature Grans # <0.03 <=0.03 10*3/uL 07/03/2024 1:53 PM EDT [facility] Lymphocyte # 0.70(L) 0.85 - 3.90 10*3/uL 07/03/2024 1:53 PM EDT [facility] Monocyte # 0.40 0.20 - 0.95 10*3/uL 07/03/2024 1:53 PM EDT [facility] Eosinophil # <0.03 0.02 - 0.50 10*3/uL 07/03/2024 1:53 PM EDT [facility] Basophil # <0.03 0.00 - 0.20 10*3/uL 07/03/2024 1:53 PM EDT [facility] nRBC % 0.0 /100 WBCs 07/03/2024 1:53 PM EDT [facility] nRBC # <0.01 <0.01 10*3/uL 07/03/2024 1:53 PM EDT [facility] Blood Structure of peripheral vein / Unknown Venipuncture / Unknown 07/03/2024 12:41 PM EDT 07/03/2024 1:39 PM EDT Kam Cooney DO LAB BLOOD ORDERABLES Final Res ult [facility] [address] [place] [address], * Aldolase (07/03/2024 12:41 PM EDT) Aldolase 6.7 <=8.1 U/L 07/06/2024 9:5 4 PM EDT [facility] (ADA) Blood Structure of peripheral vein / Unknown Venipuncture / Unknown 07/03/2024 12:41 PM EDT 07/03/2024 1:39 PM EDT Narrative [facility] - 07/06/2024 9:54 PM EDT [facility] Received Date:[id number] Kam Cooney DO LAB BLOOD ORDERABLES Final Res ult [address], [place] [address], MICHELLE YOON) [address] [place], [place] , * Vitamin D, 25-Hydroxy, Total, Immunoassay (07/03/2024 12:41 PM EDT) Calcidiol+ercalc idiol 38 30 - 100 ng/mL 07/03/2024 10:29 PM EDT [employer] [facility] Comment: Vitamin D Status ? 25-OH Vitamin D: Deficiency: ?<20 ng/mL Insufficiency: ? 20 - 29 ng/mL Optimal: ? > or = 30 ng/mL For 25-OH Vitamin D testing on patients on D2-supplementation and patients for whom quantitation of D2 and D3 fractions is required, the QuestAssureD(TM) 25-OH VIT D, (D2,D3), LC/MS/MS is recommended: order code [id number] (patients >2yrs). See Note 1 Note 1 For additional information, please refer to http://education.Hot Potato/faq/UJO142 (This link is being provided for informational/ educational purposes only.) Blood Structure of peripheral vein / Unknown Venipuncture / Unknown 07/03/2024 12:41 PM EDT 07/03/2024 1:39 PM EDT Narrative [facility] - 07/03/2024 10:29 PM EDT [facility] Received Date: us Kam Cooney DO LAB BLOOD ORDERABLES Final Res ult Performing Organization Address City/[facility]/ZIP Co de Phone Number [facility] [address] [facility] [address], [place] [address], [place] [phone] [employer] [facility] [address] [facility] [address], [place] [address], [place] [phone] * Sedimentation Rate (07/03/2024 12:41 PM EDT) Sed Rate 5 <20 mm/Hr mm/Hr 07/03/2024 1:59 PM EDT [facility] Blood Structure of peripheral vein / Unknown Venipuncture / Unknown 07/03/2024 12:41 PM EDT 07/03/2024 1:39 PM EDT Kam Cooney DO LAB BLOOD ORDERABLES Final Res ult [facility] [address] [place] [address], [place] * C-Reactive Protein (07/03/2024 12:41 PM EDT) C Reactive Protein <3.0 <=9.9 mg/L 07/03/2024 2:26 PM EDT [facility] Blood Structure of peripheral vein / Unknown Venipuncture / Unknown 07/03/2024 12:41 PM EDT 07/03/2024 1:39 PM EDT us Kam Cooney DO LAB BLOOD ORDERABLES Final Res ult [facility] [address] [place] [address], * (ABNORMAL) PTH, Intact (without Calcium) (07/03/2024 12:41 PM EDT) Parathyroid Hormone, Intact 14(L) 16 - 77 pg/mL 07/04/2024 8:30 AM EDT [employer] Comment: Interpretive Guide ?Intact PTH ? Calcium [...] 1:39 PM EDT Narrative [facility] - 07/04/2024 8:30 AM EDT [facility] Received Date: Kam Cooney LAB BLOOD ORDERABLES Final Res ult [facility] [address] [facility] [address], [place] [address], [place] [phone] [employer] [facility] [address] [facility] [address], [place] [address], [place] [phone] * Creatinine (07/03/2024 12:41 PM EDT) Creatinine 0.68 0.60 - 1.30 mg/dL 07/03/2024 2:24 PM EDT [facility] eGFR >90 >=60 mL/min/1. 73m2 07/03/2024 2:24 PM EDT [facility] Comment:The estimated glomer ular [...] 12:41 PM EDT 07/03/2024 1:39 PM EDT Kam Eros DO LAB BLOOD ORDERABLES Final Res ult Performing Organization Address City/[facility]/ZIP Co de Phone Number [facility] [address] [place] [address], [place] * CK (07/03/2024 12:41 PM EDT) CK 102 49 - 348 U/L 07/03/2024 2:24 PM EDT [facility] Blood Structure of peripheral vein / Unknown Venipuncture / Unknown 07/03/2024 12:41 PM EDT 07/03/2024 1:39 PM EDT us Kam Cooney DO LAB BLOOD ORDERABLES Final Res ult [facility] [address] [place] [address], * (ABNORMAL) Hepatic Function Panel (07/03/2024 12:41 PM EDT) Total Protein 7.1 6.0 - 8.0 g/dL 07/03/2024 2:24 PM EDT [facility] Albumin 4.3 3.5 - 5.2 g/dL 07/03/2024 2:24 PM EDT [facility] Globulin, Total 2.8 2.1 - 4.2 g/dL 07/03/2024 2:24 PM EDT [facility] Bilirubin, Total 1.6(H) 0.2 - 1.2 mg/dL 07/03/2024 2:24 PM EDT [facility] Bilirubin, Direct 0.5(H) <=0.4 mg/dL 07/03/2024 2:24 PM EDT [facility] Alkaline Phosphatase 50 35 - 129 U/L 07/03/2024 2:24 PM EDT [facility] AST 31 10 - 40 U/L 07/03/2024 2:24 PM EDT [facility] ALT 27 10 - 40 U/L 07/03/2024 2:24 PM EDT [facility] Bilirubin, Indirect 1.10(H) <=0.70 mg/dL 07/03/2024 2:24 PM EDT [facility] A/G Ratio 1.5 1.5 - 3.0 07/03/2024 2:24 PM EDT [facility] Blood Structure of peripheral vein / Unknown Venipuncture / Unknown 07/03/2024 12:41 PM EDT 07/03/2024 1:39 PM EDT us Kam Cooney DO LAB BLOOD ORDERABLES Final Res ult [facility] [address] [place] [address], [place] * (ABNORMAL) Basic Metabolic Panel (12/13/2022 10:02 AM EDT) NA 141 135 - 145 mmol/L 12/13/2022 11:20 AM EDT [facility] K 3.6 3.5 - 5.3 mmol/L 12/13/2022 11:20 AM EDT [facility] Cl 103 97 - 110 mmol/L 12/13/2022 11:20 AM EDT [facility] CO2 33(H) 24 - 32 mmol/L 12/13/2022 11:20 AM EDT [facility] BUN 13 7 - 23 mg/dL 12/13/2022 11:20 AM EDT [facility] Creatinine 0.68 0.60 - 1.30 mg/dL 12/13/2022 11:20 AM EDT [facility] Glucose 78 70 - 99 mg/dL 12/13/2022 11:20 AM EDT [facility] Calcium 9.5 8.7 - 10.7 mg/dL 12/13/2022 11:20 AM EDT [facility] Anion Gap 5 5 - 15 12/13/2022 11:20 AM EDT [facility] eGFR >90 >=60 mL/min/1. 73m2 12/13/2022 11:20 AM EDT [facility] Comment:The estimated glomer ular [...] MD LAB BLOOD ORDERABLES Final Resul t [facility] [address] [place] [address], from Last 3 Months or Most Recently Relevant to Health Maintenance Insurance [employer] Care Teams Sole Ruffer Relationship Specialty Start Date End Date Javed Gonzales [address] [place] [address] dr Antonio Alvarez, [place]ITTANEY [address] PCP - General 09/20/16
--- OUTSIDE RECORDS SUMMARY | 2024-07-10 12:54 | XMS_ITS ---
Author Organization Javed Gonzales MD Address [address] [place], [place] [id number] Care Team Providers Care Chemistry Technician Name Role Phone Javed Gonzales Primary Care Provider [phone] Allergies Allergen (clinical drug ingredient) Drug/Non Drug [...] kg/m2 06/08/2024 weight is down 28 pounds sin 24 Encounters Encounter Location Date Provider Diagnosis Javed Gonzales MD [address] [place] [address] [place] [phone] 06/08/2024 Javed Gonzales Adult general medica l [...] and discussed with patient, order faxed to [facility] dept 06/08/2024 Heart murmur (ICD-10 - [...] and discussed with patient, order faxed to [facility] dept Heart murmur stable, will conitnu [...] Up: 6 Months, Reason: Provider Name:Javed goodson, 12/15/2024 07:00:00 AM, [address] [place] [address], [address], [phone], Provider Name:Javed goodson, 12/21/2024 08:30:00 AM, [address] [place] [address], [address], [phone], Provider Name:Jaevd goodson, 06/03/2025 07:30:00 AM, [address] [place] [address], [address], [phone], Provider Name:Javed goodson, 06/10/2025 08:30:00 AM, [address] [place] [address], [address], [phone], Progress Notes * Jeremías CANTOR PDOB:1965 (59 yo M)Acc No.[id number]:06/08/2024 Progress Notes Patient:?Jeremías CANTOR Provider:?Javed Gonzales MD :1965???Age:59 Y???Sex:Male Jakob e:06/08/2024 Address:[address], [place], [id number] Subjective: * Chief Complaints: * ???Annual visit * HPI: ???Depression Screening:?PHQ-9?Little interest or pleasure in doing things?Not at all,?Feeling down, depressed, or hopeless?Not at all,?Trouble falling or staying asleep, or sleeping too much?Not at all,?Feeling tired or having little energy?Not at all,?Poor appetite or overeating?Not at all,?Feeling bad about yourself or that you are a failure, or have let yourself or your family down?Not at all,?Trouble concentrating on things, such as reading the newspaper or watching television?Not at all,?Moving or speaking so slowly that other people could have noticed; or the opposite, being so fidgety or restless that you have been moving around a lot more than usual?Not at all,?Thoughts that you would be better off or of hurting yourself in some way?Not at all,?Total Score?0.?Interpretation and Intervention?Depression Screening Findings?Negative,?Follow-Up for Depression?: review of PHQ-9 found negative result, no follow-up needed.?patient is a 59 yo male here for annual visit with review of recent labs abd follow up of chronic issues. ???Communication Needs:?Communication Needs?Does the patient have a hearing impairment?No,?Does the patient have a vision impairment??Yes,?If yes, what is the vision impairment??Glasses,?Does the patient have a cognition impairment??No.?Fall Risk:?History?Have you had any falls with injury in the past year??No,?Have you had two or more falls in the past year??No.?SDOH Questions:?SDOH Questions?In the past year have you been worried about losing housing??No,?In the past year have you or any family members you live with been unable to get any of the following when it was really needed? Check all that apply:?None.?Symptom(s):? patient is a 59 yo male here for annual visit with review of recent labs abd follow up of chronic issues. * ROS:?General/Constitutional:?Change in appetite?denies.?Chills?denies.?Fever?denies.?Ophthalmologic:?Blurred vision?denies.?Discharge?denies.?Pain?denies.?ENT:?Decreased hearing?denies.?Sore throat?denies.?Swollen glands?denies.?Endocrine:?Cold intolerance?denies.?Excessive thirst?denies.?Heat intolerance?denies.?Weight loss?denies.?Respiratory:?Cough?denies.?Shortness of breath at rest?denies.?Shortness of breath with exertion?denies.?Wheezing?denies.?Cardiovascular:?Chest pain at rest?denies.?Chest pain with exertion?denies.?Irregular heartbeat?denies.?Shortness of breath?denies.?Gastrointestinal:?Abdominal pain?denies.?Change in bowel habits?denies.?Diarrhea?denies.?Nausea?denies.?Rectal bleeding?denies.?Vomiting?denies .?Genitourinary:?Blood in urine?denies.?Difficulty urinating?denies.?Frequent urination?denies.?Musculoskeletal:?Painful joints?denies.?Weakness?denies.?Skin:?Dry skin?denies.?Itching?denies.?Denies?Mole(s),? changes in moles, new moles or any lesions of concern.?Denies?Photosensitivity.?Rash?denies.?Neurologic:?Dizziness?denies.?Fainting?denies.?Headache?denies.? * Medical History:? * Surgical History:? * Hospitalization/Major Diagno stic Procedure:? * Family History:?Father: dece ased 53 yrs, lung cancer, diagnosed with Cancer.?Mother: 65 yrs, lung cancer, diagnosed with Cancer.?2 brother(s) . 1 son(s) , 1 daughter(s) . .? Father- lung cancer Mother lung cancer, Denies mental health/substance abuse family history, Denies mental health/substance abuse family history, Denies mental health/substance abuse family history. * Social History:?Tobacco Use:?Tobacco Use/Smoking?Patient is a?nonsmoker,?Additional Findings: Tobacco Non-User?Current non-smoker, currently using no form of tobacco.?Drugs/Alcohol:?Alcohol Screen?Did you have a drink containing alcohol in the past year??No,?Points?0,?Interpretation?Negative.?Miscellaneous:?Caffeine: yes, frequency:, 1-2 cups per day. Children: yes. Exercise: yes, walks 2 -3 times a week for half an hour. Home smoke detector use: yes. Housing: owning. Living with: family. Marital status: . Occupation: works full-time. Pets: none. Travel outside of the [place]: no. * Medications:?TakingCalcium 6 00 MG Tablet 2 [...] disturbanceyes[Allergies Verified] Objective: * Vitals:?Ht: 74.25, Wt: 266, BMI:33.92, BP:122/60, Wt-k.66. weight is down 28 pounds since 12-13-23. * ???Past Orders: ???Lab:PSA,Total (Free>4and< 10) (Order Date - 06/01/2024) (Collection Date & Time - 06/01/2024 08:00 AM) ? Value Reference Range ?PSA,Total (Free>4and<10) 1.51 0.00-4.00 - ng/mL ???Lab:Microalbumin, Random (Order Date - 06/01/2024) (Collection Date & Time - 06/01/2024 08:00 AM) ? Value Reference Range ?Creatinine Urine 274.70 - m g/dL ?Microalbumin Urine 10.0 - mg/L ?Microalbum Creatinine Ratio Ur 3.6 <30 - ug/mg cr ???Lab:Hemoglobin A1c (Order Date - 06/01/2024) (Collection Date & Time - 06/01/2024 08:00 AM) ? Value Reference Range ?Hemoglobin A1c % 5.2 <6. 0 - % ?Estimated Average Glucose 103 - mg/dL ???Lab:UA ClnCatch+Micro w/r flx Cult (Order Date - 06/01/2024) (Collection Date & Time - 06/01/2024 08:00 AM) ? Value Reference Range ?Color Urine Dark Yellow - ?Appearance Urine Clear - ?PH 6.5 5.0-9.0 - ?Glucose Urine UA Negative Neg ative - mg/dL ?Urine Blood Negative Negative - ?Specific [place] - Urine 1.025 1.005-1.025 - ?Urine Protein 30 (1+) A Neg-Tr greg - mg/dL ?Urine Ketones Negative Negati ve - mg/dL ?Nitrite Urine Negative Negati ve - ?Leukocyte Esterase Urine Negative Negative - ?RBC Urine 0-2 0-2 - /HPF ?WBC Urine 0-5 0-5 - /HPF ?Squamous Epithelial Cell Urine 0-2 0-2 - /HPF ?Bacteria Urine None Seen None Seen - ?Hyaline Casts Urine 0-2 0-2 - /LPF ???Lab:Comprehensive Met. Toni marko (Order Date - 06/01/2024) (Collection Date & Time - 06/01/2024 08:00 AM) ? Value Reference Range ?Sodium 143 135-145 - mmo l/L ?Bilirubin Total 1.6 H 0.0- 1.0 - mg/dL ?Aspartate Amino Transferase 32 5-37 - U/L ?Alanine Aminotransferase 37 0-40 - U/L ?Total Protein 6.3 L 6.5-8. 0 - g/dL ?Albumin Level 4.0 3.5-5. 0 - g/dL ?Alkaline Phosphatase 41 39-117 - U/L ?Potassium 3.7 3.3-5.1 - mmol/L ?Chloride 106 96-108 - mm ol/L ?Carbon Dioxide 30 H 22-29 - mmol/L ?Anion Gap 11 L 12-20 - ?Blood Urea Nitrogen 14 9-16 - mg/dL ?Creatinine 0.72 0.5-1.4 - mg/dL ?Estimated Glomerular Filt Rate > 60 - ?Glucose Random 83 60-11 5 - mg/dL ?Calcium 9.0 8.4-10.2 - m g/dL ???Lab:Lipid Panel (Order Da te - 06/01/2024) (Collection Date & Time - 06/01/2024 08:00 AM) ? Value Reference Range ?Triglycerides 78 <150 - mg/dL ?Cholesterol 143 <200 - m g/dL ?LDL Cholesterol Calculated 76 <100 - mg/dL ?HDL Cholesterol 52 >40 - mg/dL * Examination: ???General Examination: ?GENERAL APPEARANCE:?well developed, well nourished, in no acute distress.?HEAD:?normocephalic, atraumatic.?EYES:?pupils equal, round, reactive to light and accommodation, sclera non-icteric.?EARS:?normal.?ORAL CAVITY:?mucosa moist.?THROAT:?clear.?NECK/THYROID:?neck supple, full range of motion, no cervical lymphadenopathy, no bruits.?SKIN:?warm and dry, no suspicious lesions.?HEART:?regular rate and rhythm, S1, S2 normal, 2/6 kourtney.?LUNGS:?clear to auscultation bilaterally.?ABDOMEN:?soft, nontender, nondistended, bowel sounds present, normal, no organomegaly , no masses palpable.?RECTAL EXAM:?normal tone, no external hemorrhoids, no masses palpable, prostate normal, stool guaiac negative.?MALE GENITOURINARY:?circumcised, no testicular mass, testes descended bilaterally.?EXTREMITIES:?no clubbing, cyanosis, or edema.?NEUROLOGIC:?nonfocal, motor strength normal upper and lower extremities, sensory exam intact.? Assessment: * Assessment: 1.?Adult general medical exa mination - Z00.00 (Primary)???2.?Heart murmur - R01.1???3.?Interstitial lung disease - J84.9???4.?Essential hypertension - I10???5.?Calcinosis - E83.59???6.?Hypercholesteremia - E78.00???7.?Colon cancer screening - Z12.11???8.?Depression screening - Z13.31??? Plan: * Treatment: 2.?Heart murmur?Imaging: ECHO Notes: stable, will conitnue to monitor?? 3.?Interstitial lung disease ? Continue Albuterol Sulfate HFA Aerosol Solution, 108 (90 Base) MCG/ACT, 1 puff as needed, Inhalation, every 4 hrs.?? Notes: no complaints?? 4.?Essential hypertension? Continue Valsartan-hydroCHLOROthiazide Tablet, 320-12.5 MG, TAKE 1 TABLET DAILY.?? Notes: well controlled, will continue current regiment?? 5.?Calcinosis? Notes: continues to have surgery, will continue to monitor?? 6.?Hypercholesteremia? Continue Atorvastatin Calcium Tablet, 20 MG, take 1 tablet by mouth every day for 30 days, Orally, Once a day.?? Notes: stale, will continue current regiment?? 7.?Colon cancer screening?LAB: Occult Blood, Stool, Guaiac (Collection Date & Time - 06/08/2024)?Negative ? Value Reference Range ?Occult Blood, Stool, Guaiac Neg Notes: guaiac negative??8.?Depression screening? Notes: negative screen?? * Procedure Codes:?46805 TEST FOR BLOOD, FECES * Follow Up:?6 Months * * Sign off status: Completed true * Provider:?Javed Gonzales MD Date:?0 06/08/2024 Generated for Anselmo galeas/Marisabel/eTransmitting on:?07/10/2024 12:53 PM EDT History and Physical [...] had two or more falls in the year?: No Communication Needs Communication Needs Does the patient have a hearing impairment: No Does the patient have a vision impairmen t?: Yes ?If yes, what is the vision impairment?: Glasses Does the patient have a cognition impair ment?: No Examination Category Sub-Category Detail Notes Category Not es General Examination GENERAL APPEARANCE: well dev eloped, well nourished, in no acute distress HEAD: normocephalic, atrau matic EYES: pupils equal, round, reactive to light and accommodation, sclera non- icteric EARS: normal THROAT: clear NECK/THYROID: neck supple, [...]
--- OUTSIDE RECORDS SUMMARY | 2024-07-10 12:54 | XMS_ITS ---
Author Organization Javed Gonzales MD Address [address] [place], [place] [id number] Care Team Providers Care Front Desk Manager Name Role Phone Javed Gonzales Primary Care Provider [phone] Results Component Value Reference Range Notes Complete Blood Count Auto Di ff Reviewed date:06/01/2024 04:34:27 PM Interpretation: Performing Lab:[facility], [address] [place] [phone] Notes/Report: White Blood Count 6.1 4.8-10.8 X10*3/uL [...] Panel Reviewed date:06/01/2024 01:52:31 PM Interpretation: Performing Lab:[address] [phone] Notes/Report: Triglycerides 78 <150 mg/dL Desirable Triglyceride: [...] (Free>4and<10) Reviewed date:06/01/2024 01:41:54 PM Interpretation: Performing Lab:[address] [phone] Notes/Report: PSA,Total (Free>4and<10) 1.51 0.00-4.00 ng/mL A [...] Random Reviewed date:06/01/2024 01:49:05 PM Interpretation: Performing Lab:[address] [phone] Notes/Report: Creatinine Urine 274.70 Microalbumin Urine 10.0 Microalbum/Creatinine Ratio Ur 3.6 <30 ug/mg cr Albumin/Creatinine Ratio Reference Ranges: Normal: < 30 ug/mg creatinine Microalbuminuria: 30 - 300 ug/mg creatinine Clinical Albuminuria: > 300 ug/mg creatinine Hemoglobin A1c Reviewed date:06/01/2024 01:43:03 PM Interpretation: Performing Lab:[address] [phone] Notes/Report: Hemoglobin A1c % 5.2 <6.0 % [...] average glucose, using the formula of the L2G-Vfmiabj Average Glucose study (ADAG), Diabetes Care, Vol.31,#8, Oct. 2007 UA ClnCatch+Micro w/rflx Cul t Reviewed date:06/01/2024 01:53:58 PM Interpretation: Performing Lab:[facility], [address] [place] [phone] Notes/Report: Urine, Clean Catch Color Urine Dark Yellow Appearance Urine Clear PH 6.5 5.0-9.0 Glucose Urine UA Negative Negative mg/dL Urine Blood Negative Negative Specific [place] - Urine 1.025 1.005-1.025 Urine Protein 30 (1+) Neg-Trace mg/dL Urine Ketones Negative Negative mg/dL Nitrite Urine Negative Negative Leukocyte Esterase Urine Negative Negative RBC Urine 0-2 0-2 /HPF WBC Urine 0-5 0-5 /HPF Squamous Epithelial Cell Urine 0-2 0-2 /HPF Bacteria Urine None Seen None Seen Hyaline Casts Urine 0-2 0-2 /LPF REASON FOR VISIT yearly fasting labs Encounters Encounter Location Date Provider Diagnosis Javed Gonzales MD [address] [place] [address] [place] [phone] 06/01/2024 Javed Gonzales Blood tests for rout [...] Treatment Pending Test Test Name Order Date [facility] [place]. Panel Fast Next Appt Details Provider Name:Javed goodson, 12/15/2024 07:00:00 AM, [address] [place] [address], [address], [phone], Provider Name:Javed Amaro ier, 12/21/2024 08:30:00 AM, [address] [place] [address], [address], [phone], Provider Name:Javed goodson, 06/03/2025 07:30:00 AM, [address] [place] [address], [address], [phone], Provider Name:Javed lombardor, 06/10/2025 08:30:00 AM, [address] [place] [address], [address], [phone], Progress Notes * Jeremías CANTOR PDOB:1965 (59 yo M)Acc No.[id number]:06/01/2024 Progress Note Patient:?Jeremías CANTOR Provider:?Javed Gonzales MD :1965???Age:59 Y???Sex:Male Jakob e:06/01/2024 Address:[address], [place], [id number] Subjective: * Chief Complaints: * ???1. Yearly fasting labs. * Medical History:? Objective: * Vitals:? Assessment: * Assessment: 1.?Blood tests for routine g eneral physical examination - Z00.00 (Primary)???2.?Essential hypertension - I10???3.?Hypercholesteremia - E78.00??? Plan: * Treatment: 2.?Essential hypertension?LAB: [facility] [place]. Panel Fast ?LAB: Complete Blood Count Auto Diff (Collection Date & Time - 06/01/2024 08:00 AM) ?LAB: Lipid Panel (Collection Date & Time - 06/01/2024 08:00 AM) ?LAB: PSA,Total (Free>4and<10) (Collection Date & Time - 06/01/2024 08:00 AM) ?LAB: Microalbumin, Random (Collection Date & Time - 06/01/2024 08:00 AM) ?LAB: Hemoglobin A1c (Collection Date & Time - 06/01/2024 08:00 AM) ?LAB: UA ClnCatch+Micro w/rflx Cult (Collection Date & Time - 06/01/2024 08:00 AM) 3.?Hypercholesteremia?LAB: [facility] [place]. Panel Fast ?LAB: Complete Blood Count Auto Diff (Collection Date & Time - 06/01/2024 08:00 AM) ?LAB: Lipid Panel (Collection Date & Time - 06/01/2024 08:00 AM) ?LAB: PSA,Total (Free>4and<10) (Collection Date & Time - 06/01/2024 08:00 AM) ?LAB: Microalbumin, Random (Collection Date & Time - 06/01/2024 08:00 AM) ?LAB: Hemoglobin A1c (Collection Date & Time - 06/01/2024 08:00 AM) ?LAB: UA ClnCatch+Micro w/rflx Cult (Collection Date & Time - 06/01/2024 08:00 AM) * Procedure Codes:?97496 VENIP UNCT, ROUTINE* * * The named appointment provid er may or may not be the originator of this progress note, and it is not deemed complete until electronically signed by the appointment provider. Sign off status: Pending * Provider:?Javed Gonzales MD Date:?0 06/01/2024 Generated for Anselmo galeas/Marisabel/Jennyferitting on:?07/10/2024 12:54 PM EDT
== END ==
LOC: HO.CARD 12:49
PROVIDERS: PCP Internal Medicine; Visit Provider Internal Medicine
DX: R01.1 Cardiac murmur, unspecified (principal)
CPT/HCPCS: 93306

== ENCOUNTER → 2024-07-10 12:53 | Outpatient (BNV) | payer OTHER, SELFPAY | PROVIDERS: PCP Internal Medicine; Visit Provider Internal Medicine | DX: I42.8 Other cardiomyopathies (principal); I35.8 Other nonrheumatic aortic valve disorders; I70.0 Atherosclerosis of aorta | CPT/HCPCS: 93306 ==

== ENCOUNTER 2024-07-17 01:12 | Inpatient (IN) | payer OTHER, SELFPAY ==
[2024-07-17] VITALS (14 sets, daily range): BP systolic 109–139; BP diastolic 50–69; PULSE 43–68; RESP 12–18; TEMP 36.2–36.8; O2SAT 93–100; BMI 32.1
--- NOTE | 2024-07-17 | ECG_ITS ---
Test Reason : upper abd pain Blood Pressure : */* mmHG Vent. Rate : 64 BPM Atrial Rate : 64 BPM P-R Int : 178 ms QRS Dur : 156 ms QT Int : 446 ms P-R-T Axes : 76 -51 5 degrees QTcB Int : 460 ms Normal sinus rhythm Left axis deviation Right bundle branch block Left ventricular hypertrophy with QRS widening ( R in aVL , [place] product ) Abnormal ECG When compared with ECG of 14-Apr-2007 05:38, Vent. rate has decreased by 42 bpm Questionable change in QRS duration Referred By: Generic ED Physician Electronically Signed By: NOREEN RHOADES MD
--- NOTE | ~2024-07-17 | US_ITS ---
EXAMINATION: US ABDOMEN LIMITED CLINICAL INFORMATION: Gallstones.. COMPARISON: CT abdomen and pelvis without IV contrast 07/17/2024 TECHNIQUE: Real-time imaging of the right upper quadrant abdominal viscera. FINDINGS: PANCREAS: Visualized portions are unremarkable. LIVER: The liver is normal in size. The liver contour is normal. Parenchymal echogenicity is slightly increased. There is a small anechoic cyst in the right hepatic lobe measuring 1.4 x 1.0 x 0.8 cm There is no intrahepatic biliary duct dilatation seen. GALLBLADDER: There is impacted echogenic stone in neck of the gallbladder. The gallbladder wall is thickened measuring 0.35 cm. No roly gallbladder fluid collection. COMMON BILE DUCT: Normal in caliber measuring 0.4 cm in diameter. RIGHT KIDNEY: No hydronephrosis. No renal calculi or focal parenchymal lesions. The FREE FLUID: None. US/US abdomen limited IMPRESSION: Impacted echogenic stone in the gallbladder neck with mild gallbladder wall thickening. Findings consistent with earlier CT abdomen findings. Mildly echogenic liver with the right hepatic benign cyst. Electronically signed by: Derek Stapleton MD 07/17/2024 08:14 AM EDT
--- NOTE | ~2024-07-17 | CT_ITS ---
CLINICAL HISTORY: lUQ pain CT abdomen and pelvis without contrast Comparison: None Findings: Bilateral septal thickening, fibrotic changes and ground-glass opacities are present within the visualized lung bases. 9 mm right liver cyst or hemangioma is noted. Mild pericholecystic fat stranding or inflammatory changes are present with a large gallstone in the neck of the gallbladder. Pancreas, spleen and adrenal glands are within normal limits. Kidneys are non hydronephrotic. 1.8 cm probable cyst is in the left kidney. No bowel obstruction, pneumoperitoneum, or pneumatosis. Large fat containing right inguinal hernia is present. The bones are intact. Extensive heterotopic ossification is noted within the pelvic adductor musculature Atherosclerotic vascular calcifications are present. IMPRESSION: 1. Pericholecystic fat stranding or inflammatory change with a large gallstone in the neck of the gallbladder. Right upper quadrant ultrasound may be helpful for further evaluation if there is clinical concern of cholecystitis. 2. Septal thickening or fibrotic changes in the lung bases with scattered ground-glass opacities or infiltrates. 3. Ancillary CT findings detailed above. This document has been electronically signed by: Yohan Camarillo MD, PHD on 07/17/2024 03:34:51
[2024-07-17 01:43] LABS: Basophils Absolute Auto 0.1 X10*3/uL (0.0-0.2); Basophils Percent Auto 0.7 % (0-2); Eosinophils Absolute Auto 0.2 X10*3/uL (0.0-0.4); Eosinophils Percent Auto 2.5 % (0-4); Hematocrit 40.7 % (42.0-52.0); Hemoglobin 13.9 g/dl (14.0-18.0); Imm Gran Abs Auto 0.01 X10*3/uL (0.00-0.03); Imm Gran Pct Auto 0.1 % (0.0-0.4); Lymphocytes Percent Auto 26.8 % (20-40); MANUAL DIFF FLAG NO; Mean Corpuscular HGB Conc 34.2 g/dl (31.0-36.0); Mean Corpuscular Hemoglobin 30.8 pg (27.0-33.0); Monocytes Absolute Auto 0.8 X10*3/uL (0.1-1.2); Monocytes Percent Auto 10.4 % (2-11); Neutrophils Absolute Auto 4.4 x10*3/uL (2.0-8.3); Neutrophils Percent Auto 59.5 % (45-73); Platelet Count 164 X10*3/uL (160-400); Red Blood Count 4.52 X10*6/uL (4.60-5.80); Red Cell Distribution Width 13.2 % (11.0-16.0); White Blood Count 7.3 X10*3/uL (4.8-10.8)
--- NOTE | 2024-07-17 02:02 | ED.ABDPAIN ---
HPI - Abdominal Pain General Chief Complaint: Abdominal Pain Stated Complaint: abd pain Time Seen by Provider: 07/17/24 02:01 Source: patient Mode of arrival: ambulatory Limitations: no limitations History of Present Illness ED Provider: HPI narrative: Patient came here for pain in left upper abdomen with vomiting started an hour prior to arrival no diarrhea no fever no chills no history of similar pain in the past no history of kidney stone patient does have history of gallstones no urinary complaints Related Data Home Medications ?Medication ?Instructions ?Recorded ?Confirmed hydroxychloroquine 200 mg tablet 200 mg PO DAILY 04/03/21 04/10/21 (Plaquenil) irbesartan 300 1 tab PO DAILY 04/03/21 04/10/21 mg-hydrochlorothiazide 12.5 mg tablet (Avalide) multivitamin 1 tab PO DAILY 04/03/21 04/10/21 prednisone 1 mg tablet 3 mg PO DAILY 04/03/21 04/10/21 prednisone 5 mg tablet 5 mg PO DAILY 04/03/21 04/03/21 methylprednisolone 4 mg tablet 2 tab PO 04/10/21 Allergies Allergy/AdvReac Type Severity Reaction Status Date / Time morphine [MORPHINE] Allergy Severe SEVERE Verified 07/17/24 01:16 VOMITING gabapentin [GABAPENTIN] AdvReac Intermediate VISUAL Verified 07/17/24 01:16 DISTURBANCES hydromorphone [From Dilaudid] AdvReac Vomiting Verified 07/17/24 04:19 Review of Systems Review of Systems Yes all other systems are reviewed and are negative PMFSH Past Medical History Medical History HTN (hypertension) Hx of pulmonary fibrosis GERD (gastroesophageal reflux disease) Eosinophilic fasciitis Surgical History History of esophagogastroduodenoscopy (EGD) H/O colonoscopy Hx of left inguinal hernia repair Hx of cystoscopy History of incision and drainage Hx of hand surgery Social History Social History Patient Tobacco Use Status: Never used Tobacco Smoked in Last 30 Days: No Use of substances other than those prescribed or required for medical reasons: No Advance Directives: Yes Advance Directives Information Provided: Yes Advance Directives on File: No Do you have a plan to hurt others: No Plan Physical Exam ED Vital Signs: Vital Signs - 24 hr 07/17/24 01:14 07/17/24 04:14 07/17/24 05:56 Temperature 97.9 F 97.3 F Pulse Rate 68 43 L 60 Respiratory Rate 18 16 12 Blood Pressure 137/69 109/57 L 111/51 L Pulse Oximetry 97 95 100 Oxygen Delivery Method Room Air Nasal Cannula Nasal Cannula Oxygen Flow Rate 4 2 07/17/24 06:48 07/17/24 08:44 Temperature 97.5 F Pulse Rate 58 Respiratory Rate 14 Blood Pressure 112/50 L Pulse Oximetry 95 96 Oxygen Delivery Method Room Air Room Air Oxygen Flow Rate BMI result Body Mass Index 32.1 Appearance: Alert. Oriented X3. No acute distress. Eyes: PERRLA, No Nystagmus ENT: Pharynx normal. Oral Mucosa moist Neck: Normal inspection. Neck supple. CVS: Normal heart rate and rhythm. Pulses normal. Respiratory: No respiratory distress. Equal air entry bilateral, no wheezing/rales/rhonchi Abdomen: Soft, Bowel sounds are present, no mass palpable, no CVA tenderness tenderness left upper abdomen mild tenderness no tenderness in right upper quadrant Skin: Skin warm and dry. Normal skin color. Normal skin turgor. Extremities: No lower extremity edema. No calf tenderness Neuro: Oriented X 3. No motor deficit. Medical Decision Making Medical Decision Making [facility] Narrative: Patient with left upper abdominal tenderness CT scan negative for acute pathology in the left side has a gallstone but no tenderness in the right upper abdomen liver enzymes are negative patient has received Dilaudid 2 mg as requested for the pain post Dilaudid patient is started vomiting multiple times had transient hypoxia lungs are clear improved after oxygenation had a transient bradycardia improved during stay Patient has improved after droperidol sleeping relax vitals stable saturating 95% at room air will although liver functions are normal WBC counts also normal and there is no tenderness in right upper quadrant but CT scan just show possible pericholecystic fluid collection and inflammation will do ultrasound to rule out cholecystitis Patient well-appearing. Symptom has completely resolved however the ultrasound came back positive for having gallbladder wall thickening gallstone impacted. LFTs are normal surgery was consulted will admit patient for close observation currently in stable condition. Differential Diagnosis Differential Diagnoses: The differential diagnosis associated with the presentation includes Renal colic/UTI/kidney stone/pancreatitis Lab Data [facility] Lab Attestation statement: I reviewed the patient's lab results. 07/17/24 01:35 07/17/24 01:35 Labs: Lab Results 07/17/24 Range/Units 01:35 WBC 7.3 (4.8-10.8) X10*3/uL RBC 4.52 L (4.60-5.80) X10*6/uL Hgb 13.9 L (14.0-18.0) g/dl Hct 40.7 L (42.0-52.0) % MCV 90.0 (80.0-98.0) fL MCH 30.8 (27.0-33.0) pg MCHC 34.2 (31.0-36.0) g/dl RDW 13.2 (11.0-16.0) % Plt Count 164 (160-400) X10*3/uL MPV 10.0 (9.4-12.4) fL Immature Gran % (Auto) 0.1 (0.0-0.4) % Neut % (Auto) 59.5 (45-73) % Lymph % (Auto) 26.8 (20-40) % [place] % (Auto) 10.4 (2-11) % Eos % (Auto) 2.5 (0-4) % Baso % (Auto) 0.7 (0-2) % Lymph # (Auto) 2.0 (1.2-4.9) X10*3/uL [place] # (Auto) 0.8 (0.1-1.2) X10*3/uL Eos # (Auto) 0.2 (0.0-0.4) X10*3/uL Baso # (Auto) 0.1 (0.0-0.2) X10*3/uL Abs Immat Gran (auto) 0.01 (0.00-0.03) X10*3/uL Absolute Neuts (auto) 4.4 (2.0-8.3) x10*3/uL Absolute Nucleated RBC 0.000 (0.0-0.012) X10*3/uL Nucleated RBC % (auto) 0.0 (0.0-0.2) /100WBC Sodium 140 (135-145) mmol/L Potassium 4.0 (3.3-5.1) mmol/L Chloride 105 (96-108) mmol/L Carbon Dioxide 24 (22-29) mmol/L Anion Gap 15 (12-20) BUN 13 (9-16) mg/dL Creatinine 0.68 (0.5-1.4) mg/dL Estim Creat Clear Calc 156.6 Estimated GFR > 60 Random Glucose 94 (60-115) mg/dL Calcium 9.7 D (8.4-10.2) mg/dL Total Bilirubin 1.4 H (0.0-1.0) mg/dL Direct Bilirubin 0.4 (0.0-0.5) mg/dL AST 30 (5-37) U/L ALT 29 (0-40) U/L Alkaline Phosphatase 41 (39-117) U/L Total Protein 6.5 (6.5-8.0) g/dL Albumin 4.0 (3.5-5.0) g/dL Lipase 22 (8-78) U/L Independent Interpretation I performed an independent interpretation of an: EKG Interpretation: Sinus bradycardia heart rate 41 beats per minute left axis deviation LVH no acute STT wave changes no acute ischemia Medications Administered Discontinued Medications Generic Name Dose Route Start Last Admin Trade Name Freq PRN Reason Stop Dose Admin Droperidol 1.25 mg 07/17/24 05:54 07/17/24 05:59 Droperidol 5 Mg/2 Ml Vial IVPUSH 07/17/24 05:55 1.25 mg ONCE ONE Administration Hydromorphone HCl 2 mg 07/17/24 02:11 07/17/24 02:17 Hydromorphone Hcl 2 Mg/Ml Vial IVPUSH 07/17/24 02:12 2 mg ONCE ONE Administration Protocol Sodium Chloride 1,000 mls @ 999 mls/hr 07/17/24 02:11 07/17/24 04:48 Ns IV 07/17/24 03:11 Infused .Q1H1M ONE Infusion Sodium Chloride 1,000 mls @ 999 mls/hr 07/17/24 06:52 07/17/24 07:47 Ns IV 07/17/24 07:52 999 mls/hr .Q1H1M ONE Administration Ketorolac Tromethamine 30 mg 07/17/24 02:11 07/17/24 02:18 Ketorolac Tromethamine 30 Mg/Ml Vial IVPUSH 07/17/24 02:12 30 mg ONCE ONE Administration Midazolam HCl 2 mg 07/17/24 03:57 07/17/24 04:17 Midazolam Hcl 2 Mg/2 Ml Vial IVPUSH 07/17/24 03:58 Not Given ONCE ONE Ondansetron HCl 4 mg 07/17/24 02:11 07/17/24 02:17 Ondansetron Hcl 4 Mg/2 Ml Vial IVPUSH 07/17/24 02:12 4 mg ONCE ONE Administration Ondansetron HCl 4 mg 07/17/24 02:53 07/17/24 02:55 Ondansetron Hcl 4 Mg/2 Ml Vial IVPUSH 07/17/24 02:54 4 mg ONCE ONE Administration Prochlorperazine Edisylate 10 mg 07/17/24 03:40 07/17/24 03:48 Prochlorperazine Edisylate 10 Mg/2 Ml Vial IVPUSH 07/17/24 03:41 10 mg ONCE ONE Administration Discharge Plan Discharge Clinical Impression: Abdominal pain, Vomiting, Cholelithiasis Patient Disposition: Home, Self-Care Instructions: Gallstones (ED), Acute Nausea and Vomiting (ED), Acute Abdominal Pain (DC) Additional Instructions: Drink plenty of fluids You have a large gallstone, if you have pain in the right upper abdomen at that time you need to be seen Avoid fried foods Follow with your PCP Prescriptions: No Action multivitamin Tablet 1 tab PO DAILY prednisone 5 mg Tablet 5 mg PO DAILY prednisone 1 mg Tablet 3 mg PO DAILY irbesartan-hydrochlorothiazide [Avalide] 300-12.5 mg Tablet 1 tab PO DAILY hydroxychloroquine [Plaquenil] 200 mg Tablet 200 mg PO DAILY methylprednisolone 4 mg tablet 2 tab PO Print Language: Singaporean
[2024-07-17 02:05] LABS: Alanine Aminotransferase 29 U/L (0-40); Anion Gap 15 (12-20); Aspartate Amino Transferase 30 U/L (5-37); Bilirubin Direct 0.4 mg/dL (0.0-0.5); Bilirubin Total 1.4 mg/dL (0.0-1.0); Blood Urea Nitrogen 13 mg/dL (9-16); Calcium 9.7 mg/dL (8.4-10.2); Carbon Dioxide 24 mmol/L (22-29); Chloride 105 mmol/L (96-108); Creatinine Clr Calc Pharmacy 156.6; Estimated Glomerular Filt Rate > 60; Glucose Random 94 mg/dL (60-115); Lipase 22 U/L (8-78); Sodium 140 mmol/L (135-145); Total Protein 6.5 g/dL (6.5-8.0)
[2024-07-17 02:15] LABS: Alkaline Phosphatase 41 U/L (39-117)
[2024-07-17] MEDS: ondansetron HCL 4 MG/2 ML VIAL IVPUSH ×2 (02:17→02:55)
[2024-07-17] MEDS: 0.9 % Sodium Chloride 1,000 ML 999 ML IV ×2 (02:17→07:47)
[2024-07-17] MEDS: HYDROmorphone HCl 2 MG/ML VIAL IVPUSH (02:17)
[2024-07-17] MEDS: Ketorolac Tromethamine 30 MG/ML VIAL IVPUSH (02:18)
[2024-07-17] MEDS: Prochlorperazine Edisylate 10 MG/2 ML VIAL IVPUSH (03:48)
--- NOTE | 2024-07-17 04:15 | ECG_ITS ---
Test Reason : NIEVES Blood Pressure : */* mmHG Vent. Rate : 41 BPM Atrial Rate : 41 BPM P-R Int : 188 ms QRS Dur : 180 ms QT Int : 540 ms P-R-T Axes : 48 -34 -12 degrees QTcB Int : 445 ms Marked sinus bradycardia Left axis deviation Right bundle branch block Left ventricular hypertrophy ( R in aVL , [place] product ) Abnormal ECG When compared with ECG of 17-Jul-2024 01:29, Vent. rate has decreased by 23 bpm QRS duration has increased T wave amplitude has decreased in Lateral leads Referred By: Bryan Goodman Electronically Signed By: NOREEN RHOADES MD
--- NOTE | 2024-07-17 04:19 | PC.NURSE ---
patient continued to vomit after compazine. IV versed ordered. when Rn went to assess vitals prior to administrtion. patient o2 on the 70s. Hr went as low as 38. patient diaphoretic, laid down on bed. provider at bedside. ? vasovagal. versed held. patient awake and conversing. ekg done. will monitor.
[2024-07-17] MEDS: droPERidol 5 MG/2 ML VIAL 1.25 MG IVPUSH (05:59)
--- NOTE | 2024-07-17 09:33 | PC.NURSE ---
Dr. Melendez to bedside discussing findings & care plan. Plan for laparoscopic cholecystectomy later today (exact time of procedure TBD). Patient & (Carina) agreeable to today's plan. Denies pain at this time, but reports nausea. Sitting upright with emesis bag, dry heaving. Dr. Melendez aware of this. NPO until procedure.
--- NOTE | 2024-07-17 09:36 | PM.HPGS ---
History of Present Illness History of Present Illness Date of Service: 07/17/24 <Shelley Reyes PA-C - Last Filed: 07/17/24 10:01> 07/17/24 <Coy Melendez MD - Last Filed: 07/17/24 10:30> Chief complaint: abd pain <Shelley Reyes PA-C - Last Filed: 07/17/24 10:01> Narrative: Jeremías Alonso is a 59 year old male with PMH of hypertension, hyperlipidemia, eosinophilic fasciitis, hx of calcium deposits who presented to the ED with complaints of acute onset RUQ abd pain. He reports this began last night at midnight and awoke him out of sleep. He denies fever, chills, back pain, diarrhea, sick contacts. He was not nauseous at home however developed persistent nausea/vomiting after receiving dilaudid. Work up in the ED included CBC, BMP, LFTs which were significant for a mildly elevated bilirubin of 1.3. No leukocytosis. CT scan abd pelvis and ABD US showed impacted stone in the gallbladder neck with very mild gallbladder wall thickening, pericholecystic fat stranding. He feels improved this morning in regards to pain. He has persistent nausea as noted above. He denies previous similar episodes of pain. at bedside who reports the patient is very active and works out daily with weight loss of over 40lbs the past several months. He denies chest pain, difficulty breathing. Reports history of inguinal hernia repair. <Shelley Reyes PA-C - Last Filed: 07/17/24 10:01> Review of Systems Review of Systems: Yes all other systems are reviewed and are negative <Shelley Reyes PA-C - Last Filed: 07/17/24 10:01> [facility] Past Medical History Medical History: Medical History HTN (hypertension) Hx of pulmonary fibrosis GERD (gastroesophageal reflux disease) Eosinophilic fasciitis <Shelley Reyes PA-C - Last Filed: 07/17/24 10:01> Surgical History Surgical History: Surgical History History of esophagogastroduodenoscopy (EGD) H/O colonoscopy Hx of left inguinal hernia repair Hx of cystoscopy History of incision and drainage Hx of hand surgery <MERLYN Suero Last Filed: 07/17/24 10:01> Social History Social History: Social History Patient Tobacco Use Status: Never used Tobacco Smoked in Last 30 Days: No Use of substances other than those prescribed or required for medical reasons: No Advance Directives: Yes Advance Directives Information Provided: Yes Advance Directives on File: No Do you have a plan to hurt others: No Plan <MERLYN Suero Last Filed: 07/17/24 10:01> Meds Allergies/Adverse reactions: Allergies Allergy/AdvReac Type Severity Reaction Status Date / Time morphine [MORPHINE] Allergy Severe SEVERE Verified 07/17/24 01:16 VOMITING gabapentin [GABAPENTIN] AdvReac Intermediate VISUAL Verified 07/17/24 01:16 DISTURBANCES hydromorphone [From Dilaudid] AdvReac Vomiting Verified 07/17/24 04:19 <Shelley Reyes PA-C - Last Filed: 07/17/24 10:01> Home medications: Home Medications ?Medication ?Instructions ?Recorded ?Confirmed ?Last Taken ?Type hydroxychloroquine 200 mg tablet 200 mg PO DAILY 04/03/21 04/10/21 Unknown History (Plaquenil) irbesartan 300 1 tab PO DAILY 04/03/21 04/10/21 Unknown History mg-hydrochlorothiazide 12.5 mg tablet (Avalide) multivitamin 1 tab PO DAILY 04/03/21 04/10/21 04/09/21 History prednisone 1 mg tablet 3 mg PO DAILY 04/03/21 04/10/21 Unknown History prednisone 5 mg tablet 5 mg PO DAILY 04/03/21 04/03/21 Unknown History methylprednisolone 4 mg tablet 2 tab PO 04/10/21 04/09/21 History <MERLYN Suero Last Filed: 07/17/24 10:01> Physical Exam Vital Signs: Vital Signs: Last Vital Signs Temp 97.5 F 07/17/24 08:44 Pulse 58 07/17/24 08:44 Resp 14 07/17/24 08:44 BP 112/50 L 07/17/24 08:44 Pulse Ox 96 07/17/24 08:44 O2 Del Method Room Air 07/17/24 08:44 O2 Flow Rate 2 07/17/24 05:56 BMI result Body Mass Index 32.1 <MERLYN Suero Last Filed: 07/17/24 10:01> Const: Other: uncomfortable appearing <MERLYN Suero Last Filed: 07/17/24 10:01> General: no acute distress and alert <Shelley Reyes PA-C [place] Last Filed: 07/17/24 10:01> Orientation/consciousness: patient oriented x3 <Shelley Reyes PA-C [place]ella Last Filed: 07/17/24 10:01> Resp: Effort & Inspection: normal respiratory effort <MERLYN Suero Last Filed: 07/17/24 10:01> GI: Inspection: No distended and No scar <Shelley Reyes PA-C [place] Last Filed: 07/17/24 10:01> Palpation (GI): Soft to palpation, nontender (negative rutherford sign ), no guarding and not rigid <Shelley Reyes PA-C [place]ella Last Filed: 07/17/24 10:01> Skin: General skin exam: no rashes or lesions noted and no jaundice <Shelley Reyes PA-C [place]ella Last Filed: 07/17/24 10:01> Neuro: General: patient oriented x3 and moves all extremities <MERLYN Suero Last Filed: 07/17/24 10:01> Results Results Labs: Short CBC 07/17/24 Range/Units 01:35 WBC 7.3 (4.8-10.8) X10*3/uL Hgb 13.9 L (14.0-18.0) g/dl Hct 40.7 L (42.0-52.0) % Plt Count 164 (160-400) X10*3/uL BMP 07/17/24 01:35 Sodium 140 Potassium 4.0 Chloride 105 Carbon Dioxide 24 BUN 13 Creatinine 0.68 Calcium 9.7 D Liver Function 07/17/24 Range/Units 01:35 Total Bilirubin 1.4 H (0.0-1.0) mg/dL Direct Bilirubin 0.4 (0.0-0.5) mg/dL AST 30 (5-37) U/L ALT 29 (0-40) U/L Alkaline Phosphatase 41 (39-117) U/L Albumin 4.0 (3.5-5.0) g/dL <Shelley Reyes PA-C - Last Filed: 07/17/24 10:01> Abdomen CT scan report/results: report reviewed and image reviewed <Shelley Reyes PA-C - Last Filed: 07/17/24 10:01> Abdominal ultrasound report/results: report reviewed and image reviewed <Shelley Reyes PA-C - Last Filed: 07/17/24 10:01> Assessment and Plan (1) Cholelithiasis: Status: Acute <Shelley Reyes PA-C - Last Filed: 07/17/24 10:01> 59-year-old male with episode of upper abdominal pain, nausea and vomiting at 12:00 last night, lasting for several hours Currently feels much better Abdomen is soft, benign, Imaging studies show a gallstone which seemed to be impacted at the neck I explained to him the option of proceeding with laparoscopic cholecystectomy, possible open I reviewed the risks including but not limited to bleeding, infections, injury to other organs including bowel, liver and the bile duct, bile leak, retained stones, as well as the benefits and alternatives. He wants to proceed His was with him during the discussion <Coy Melendez MD - Last Filed: 07/17/24 10:30> 59 year old male with PMH of hypertension, hyperlipidemia, eosinophilic fasciitis who presented to the ED with complaints of RUQ abd pain that awoke him out of sleep. Work up shows impacted gallstone with very mild wall thickening, pericholecystic fat stranding. His pain has since resolved and his abdomen is soft, nontender and very benign. Discussed treatment options including proceeding with laparoscopic cholecystectomy, possible open while he is here given his episode of biliary colic or f/u in office and have schedule scheduled electively. The patient would like to proceed while he is here. He was admitted to the surgical service for further treatment of the symptomatic gallstone and was added onto the OR schedule for today. Risks, benefits, alternatives of laparoscopic possible open cholecystectomy were reviewed with the patient including but not limited to bleeding, infection, numbness, pain, poor healing, injury to the liver, bowel or bile ducts, leak, retained stones and the patient wishes to proceed. Cont NPO status, IVF, scopolamine patch for antiemetic due to narcotic/anesthesia sensitivity. All questions answered. <Shelley Reyes PA-C - Last Filed: 07/17/24 10:01> Quality Stroke Does the patient have a stroke diagnosis?: No <Shelley Reyes PA-C - Last Filed: 07/17/24 10:01> VTE Prior VTE?: No <Shelley Reyes PA-C - Last Filed: 07/17/24 10:01> VTE Risk Level:: Surgical - moderate <Shelley Reyes PA-C - Last Filed: 07/17/24 10:01> VTE Device Contraindication: N/A - Device Ordered <Shelley Reyes PA-C - Last Filed: 07/17/24 10:01> VTE Drug Contraindication: Treatment Not Indicated <Shelley Reyes PA-C - Last Filed: 07/17/24 10:01> Procedures Date of Service Date of Service: 07/17/24 <Shelley Reyes PA-C - Last Filed: 07/17/24 10:01> 07/17/24 <Coy Melendez MD - Last Filed: 07/17/24 10:30>
[2024-07-17] MEDS: Scopolamine 1.5 MG PATCH.TD.3 EAR-BEHIND (10:26)
--- NOTE | 2024-07-17 10:37 | PC.NURSE ---
Confirmed with Dr. Melendez that the ordered Cefotan is to be administered in pre-op, not while in ED. NS 0.9% infusing via pump at this time. IV to left AC is positional. Will initiate LR infusion upon completion of NS 0.9% infusion. Dr. Melendez aware.
--- NOTE | 2024-07-17 11:00 | PC.NURSE ---
Patient heading to OR for surgery. Carina called and notified. Carina to meet the patient in Short Stay Surgery department.
--- NOTE | 2024-07-17 11:14 | PC.NURSE ---
20g left ac. asymptomatic.
--- NOTE | 2024-07-17 11:18 | P.CONAN_ITS ---
HPI - Anesthesia Eval Consult details Narrative: for lap. cholecystectomy PMFSH Active Problems Active Problems: All Active Problems Cholelithiasis (Acute) Vomiting (Acute) Abdominal pain (Acute) Past Medical History Medical History (Updated 07/17/24 @ 11:07 by Amber Lynn RN) H/O echocardiogram Sleep apnea HTN (hypertension) Hx of pulmonary fibrosis GERD (gastroesophageal reflux disease) Eosinophilic fasciitis Family History Family history of problems with anesthesia: No Surgical History Surgical History (Updated 07/17/24 @ 11:06 by Amber Lynn RN) History of surgery History of esophagogastroduodenoscopy (EGD) H/O colonoscopy Hx of left inguinal hernia repair Hx of cystoscopy History of incision and drainage Hx of hand surgery History of Problems with Anesthesia: Yes (PONV) Social History Social History Patient Tobacco Use Status: Never used Tobacco Smoked in Last 30 Days: No Use of substances other than those prescribed or required for medical reasons: No Are you DNR?: No Advance Directives: Yes Advance Directives Information Provided: Yes Advance Directives on File: No Advance Directives Date on File: 07/17/24 Do you have a plan to hurt others: No Plan Poor oral hygiene: No Meds Allergies Allergy/AdvReac Type Severity Reaction Status Date / Time morphine [MORPHINE] Allergy Severe SEVERE Verified 07/17/24 01:16 VOMITING gabapentin [GABAPENTIN] AdvReac Intermediate VISUAL Verified 07/17/24 01:16 DISTURBANCES hydromorphone [From Dilaudid] AdvReac Vomiting Verified 07/17/24 04:19 Active Medications: Current Medications Acetaminophen (Acetaminophen 325 Mg Tablet) 650 mg PO Q6H PRN PRN Reason: Pain, Mild 1-3,fever,headache Calcium Carbonate (Calcium Carbonate 750 Mg Tab.Chew) 750 mg PO Q4H PRN PRN Reason: Heartburn Lactated Ringer's (Lr) 1,000 mls @ 100 mls/hr IVCONT .Q10H ROGERS Magnesium Hydroxide (Milk Of Magnesia 30 Ml Oral.Susp) 30 ml PO DAILY PRN PRN Reason: Constipation Melatonin (Melatonin 3 Mg Tablet) 6 mg PO BEDTIME PRN PRN Reason: Insomnia Morphine Sulfate (Morphine Sulfate 4 Mg/Ml Cartridge) 4 mg IVPUSH Q4H PRN; Protocol PRN Reason: Pain, Severe (Pain Scale 7-10) Ondansetron HCl (Ondansetron Hcl 4 Mg/2 Ml Vial) 4 mg IVPUSH Q8H PRN PRN Reason: Nausea and Vomiting Oxycodone HCl (Oxycodone Hcl Immed Release 5 Mg Tablet) 5 mg PO Q6H PRN PRN Reason: Pain, Moderate(Pain Scale 4-6) Sodium Chloride (0.9 % Sodium Chloride Flush 3 Ml Syringe) [facility]ations ?Medication ?Instructions ?Recorded ?Confirmed ?Last Taken ?Type hydroxychloroquine 200 mg tablet 200 mg PO DAILY 04/03/21 04/10/21 Unknown History (Plaquenil) multivitamin 1 tab PO DAILY 04/03/21 04/10/21 04/09/21 History methylprednisolone 4 mg tablet 2 tab PO BID 04/10/21 04/09/21 History atorvastatin 20 mg tablet 20 mg PO DAILY 07/17/24 Unknown History valsartan 320 1 tab PO DAILY 07/17/24 07/17/24 Unknown History mg-hydrochlorothiazide 12.5 mg tablet Exam Height,Weight and Vital Signs: Height 6 ft 2 in Weight 113.398 kg Last Vital Signs Temp 98.0 F 07/17/24 11:10 Pulse 56 07/17/24 11:10 Resp 16 07/17/24 11:10 BP 131/58 L 07/17/24 11:10 Pulse Ox 99 07/17/24 11:10 O2 Del Method Room Air 07/17/24 11:10 O2 Flow Rate 2 07/17/24 05:56 Pertinent Lab Results Pertinent Lab Results: Laboratory Tests 07/17/24 01:35 WBC 7.3 RBC 4.52 L Hgb 13.9 L Hct 40.7 L MCV 90.0 MCH 30.8 MCHC 34.2 RDW 13.2 Plt Count 164 MPV 10.0 Immature Gran % (Auto) 0.1 Neut % (Auto) 59.5 Lymph % (Auto) 26.8 [place] % (Auto) 10.4 Eos % (Auto) 2.5 Baso % (Auto) 0.7 Lymph # (Auto) 2.0 [place] # (Auto) 0.8 Eos # (Auto) 0.2 Baso # (Auto) 0.1 Abs Immat Gran (auto) 0.01 Absolute Neuts (auto) 4.4 Absolute Nucleated RBC 0.000 Nucleated RBC % (auto) 0.0 Sodium 140 Potassium 4.0 Chloride 105 Carbon Dioxide 24 Anion Gap 15 BUN 13 Creatinine 0.68 Estim Creat Clear Calc 156.6 Estimated GFR > 60 Random Glucose 94 Calcium 9.7 D Total Bilirubin 1.4 H Direct Bilirubin 0.4 AST 30 ALT 29 Alkaline Phosphatase 41 Total Protein 6.5 Albumin 4.0 Lipase 22 Airway Mallampati Class: II TM Dist: <=3cm Neck ROM: Full Loose/Missing/Broken Teeth: No Heart: ok Lungs: ok Assessment and Plan Assessment Anesthesia Assessment: Anesthesia Plan Discussed and Chart Reviewed Final Anesthetic Review Family History of Problems with Anesthesia: No History of Problems with Anesthesia: Yes (PONV) NPO: Yes ASA Class: III Final Preanesthetic Review: No Changes in Pt Med Stat, Meds/Allgs Chart Reviewed, Consent Obtained/Reviewed and Anes Risks/Benef Reviewed Patient Risk: Intermediate Procedure Risk: Intermediate Anesthetic Plan Anesthetic Plan: GA and Agree w/ Assess. and Plan Disposition: Standard PACU
[2024-07-17] MEDS: cefoTEtan disodium 2 GM VIAL IVPUSH (11:37)
--- NOTE | 2024-07-17 12:12 | PHA.MEDREC ---
Addendum entered by Elian Gandhi 07/17/24 12:18: reviewed Original Note: Pharmacy Consult ? Medication Reconciliation Pharmacy has completed the medication reconciliation. Spoke with patients (Carina) over the phone and she was able to confirm what her takes for at home medications.
--- NOTE | 2024-07-17 12:34 | P.OP_ITS ---
Operative Note Operative Note Date of Service: 07/17/24 Narrative: Preop diagnosis: Acute calculous cholecystitis Postop diagnosis: The same Procedure: Laparoscopic cholecystectomy Surgeon: Coy Melendez MD assistant track and field coach: BRIANNA Reyes The patient is a 59-year-old male who came into the ER overnight because of severe upper abdominal pain. He has imaging studies showed a gallstone in the neck that appeared to be impacted. He therefore wanted to proceed with cholecy stectomy. He understood the technique of the planned procedure as well as the risks, benefits, and alternatives He was brought to the operating room. He was placed supine under general anesthesia via endotracheal tube. The abdomen was prepped and draped in the usual sterile fashion. A surgical time-out was done. The patient received Cefotan 2 g IV preoperatively I made a short supraumbilical incision with a blade 15. This was carried down through the full-thickness of the skin subcutaneous fat down to the fascia. The fascia was incised. The peritoneum was entered. Through this incision of the Britt port was introduced. Pneumoperitoneum was introduced through a pressure of 15 mm Hg. From here on the rest of the procedure was done under vision with the 10 mm laparoscope. With laparoscopic visualization and inserted a 5/12 mm port in the epigastric area below the subcostal margin. Two 5 mm ports introduced a small incision below the subcostal margin along the anterior axi llary line and the midclavicular line. Graspers were placed through this working ports. The patient was placed in a head up and [id number] position. Gallbladder was actually covered by omental fat. We were however able to apply the grasper at the fundus to retract the gallbladder cephalad. I then proceeded to carefully stripped off the omental fat from the year of all of the gallbladder using the [place] dissector. There was note of significant induration of the omental fat and erythema of the gallbladder wall consistent with acute cholecystitis. Eventually I was able to clear up the anterior wall and apply another grasper towards the pouch of the gallbladder. This allowed me to retract the gallbladder in a cephalad and lateral fashion to put the proceed area of the cystic duct on stretch. I continued to do gentle dissection with the [place] dissector to define the neck of the gallbladder and the cystic duct. By doing so was able to achieve a critical view of the hepatocystic triangle. There were no other tubular structures seen in the area aside from what appeared to be the cystic artery With the confluence of the cystic duct with the neck of the gallbladder con firmed, I then proceeded to apply clips on the cystic duct with 2 clips being applied distally. The cystic duct was transected between clips with Endo scissors. I then proceeded to apply clips on what appeared to be the cystic artery. Two clips were applied distally in the cystic artery was transected between clips with Endo scissors as well With traction in the gallbladder away from the liver bed, I proceeded to do gentle dissection of the indurated fatty tissue at the hilum until I reached the interface of the gallbladder wall and the liver bed. I used the electrocautery spatula to develop a plane of dissection between the gallbladder wall and the liver bed. We the gallbladder from the liver bed along this well- defined plane of dissection with a combination of blunt dissection with the tip of the spatula and electrocautery itself. We proceeded with this family dissection all the way to the fundus until the entire gallbladder was completely . The gallbladder was retrieved through an endobag through the umbilical incision. I reinserted all ports and re-insufflated. I examined the area of dissection. There was no bleeding. There was no evidence of any bowel injury or any bile leak. I observed all 4 quadrants. There was no obvious pathology seen in the rest of the peritoneal cavity We re-examined the subhepatic space. Again hemostasis was confirmed. We then proceeded to desufflated the port sites. I then removed all ports under vision with the laparoscope. The umbilical port was removed last. The fascia of the umbilical incision was closed with a [id number] Polysorb 0 stitch Skin closure was achieved on all incisions using Polysorb 4-0 subcuticular running sutures. All incisions were infiltrated with Marcaine 0.5% for postop analgesia. Dressings were applied and the procedure was completed The patient tolerated the procedure well. There were no immediate complications. Initial and final counts of sponges and instruments were correct. Estimated blood loss was less than 25 cc. The patient is extubated without difficulty and transferred to recovery room with stable vital signs.
[2024-07-17] MEDS: Lactated Ringers 1,000 ML 100 ML IVCONT ×2 (14:11→23:52)
--- NOTE | 2024-07-17 16:12 | PM.EVENT ---
Event Note Date of Service: 07/17/24 Event Note: Seen postop on afternoon rounds Underwent uneventful laparoscopic cholecystectomy earlier for acute cholecystitis Says he has good pain control Looks well Stable vital signs Abdomen is soft No subcutaneous emphysema currently on palpation, no crepitus Diet as tolerated Hope to be able to discharge tomorrow Carina updated Time Spent With Patient Time: Total time managing care of this patient today ____ minutes.
[2024-07-17] MEDS: Hydroxychloroquine Sulfate 200 MG TABLET PO (20:10)
[2024-07-17] MEDS: methylPREDNISolone 4 MG TABLET PO (20:10)
[2024-07-17] MEDS: Acetaminophen 325 MG TABLET 975 MG PO (20:10)
[2024-07-18] MEDS: Acetaminophen 325 MG TABLET 975 MG PO ×2 (01:28→08:54)
[2024-07-18 07:19] VITALS: BP 117/63; PULSE 56; RESP 14; TEMP 36.8; O2SAT 95
[2024-07-18] MEDS: methylPREDNISolone 4 MG TABLET PO (08:55)
[2024-07-18] MEDS: Atorvastatin Calcium 20 MG TABLET PO (08:55)
[2024-07-18] MEDS: hydroCHLOROthiazide 12.5 MG TABLET PO (08:55)
[2024-07-18] MEDS: Calcium Oyster Shell Elemental 500 MG TABLET 1000 MG PO (08:55)
[2024-07-18] MEDS: Hydroxychloroquine Sulfate 200 MG TABLET PO (08:56)
[2024-07-18] MEDS: 0.9 % Sodium Chloride Flush 3 ML SYRINGE IVFLUSH (08:58)
[2024-07-18] MEDS: Valsartan 320 MG TABLET PO (09:00)
--- NOTE | 2024-07-18 09:44 | P.PNGS_ITS ---
Subjective Subjective Date of Service: 07/18/24 Interval history: feels well says he had a good night tolerating diet Physical Exam 2 Vital Signs: Vital Signs: Last Vital Signs Temp 98.3 F 07/18/24 07:19 Pulse 56 07/18/24 07:19 Resp 14 07/18/24 07:19 BP 117/63 07/18/24 07:19 Pulse Ox 95 07/18/24 07:19 O2 Del Method Room Air 07/18/24 07:19 O2 Flow Rate 3 07/17/24 13:00 BMI result Body Mass Index 32.1 Const: General: comfortable and no acute distress Eyes: Sclerae: sclerae normal Resp: Effort & Inspection: normal respiratory effort Cardio: Rate: regular rate GI: Other: dressings dry Palpation (GI): Soft to palpation, not firm and no guarding Objective Data Active Medications Acetaminophen (Acetaminophen 325 Mg Tablet) 975 mg PO Q6H [facility] Last Admin: 07/18/24 08:54 Dose: 975 mg Documented By: ALEKSANDER Atorvastatin Calcium (Atorvastatin Calcium 20 Mg Tablet) 20 mg PO DAILY [facility] Last Admin: 07/18/24 08:55 Dose: 20 mg Documented By: ALEKSANDER Calcium Carbonate (Calcium Carbonate 750 Mg Tab.Chew) 750 mg PO Q4H PRN PRN Reason: Heartburn Calcium Carbonate (Calcium Oyster Shell Elemental 500 Mg Tablet) 1,000 mg PO DAILY [facility] Last Admin: 07/18/24 08:55 Dose: 1,000 mg Documented By: ALEKSANDER Hydrochlorothiazide (Hydrochlorothiazide 12.5 Mg Tablet) 12.5 mg PO DAILY [facility] Last Admin: 07/18/24 08:55 Dose: 12.5 mg Documented By: ALEKSANDER Hydroxychloroquine Sulfate (Hydroxychloroquine Sulfate 200 Mg Tablet) 200 mg PO BID [facility] Last Admin: 07/18/24 08:56 Dose: 200 mg Documented By: ALEKSANDER Lactated Ringer's (Lr) 1,000 mls @ 100 mls/hr IVCONT .Q10H [facility] Last Admin: 07/17/24 23:52 Dose: 100 mls/hr Documented By: CASTILArvin Ibuprofen (Ibuprofen 600 Mg Tablet) 600 mg PO Q6H PRN PRN Reason: Pain, Mild 1-3,fever,headache Magnesium Hydroxide (Milk Of Magnesia 30 Ml Oral.Susp) 30 ml PO DAILY PRN PRN Reason: Constipation Melatonin (Melatonin 3 Mg Tablet) 6 mg PO BEDTIME PRN PRN Reason: Insomnia Methylprednisolone (Methylprednisolone 4 Mg Tablet) 4 mg PO BID [facility] Last Admin: 07/18/24 08:55 Dose: 4 mg Documented By: ALEKSANDER Morphine Sulfate (Morphine Sulfate 4 Mg/Ml Cartridge) 4 mg IVPUSH Q4H PRN; Protocol PRN Reason: Pain, Severe (Pain Scale 7-10) Ondansetron HCl (Ondansetron Hcl 4 Mg/2 Ml Vial) 4 mg IVPUSH Q8H PRN PRN Reason: Nausea and Vomiting Sodium Chloride (0.9 % Sodium Chloride Flush 3 Ml Syringe) 3 ml IVFLUSH QSHIFT [facility] Last Admin: 07/18/24 08:58 Dose: 3 ml Documented By: ALEKSANDER Tramadol HCl (Tramadol Hcl 50 Mg Tablet) 50 mg PO Q4H PRN PRN Reason: Pain, Moderate(Pain Scale 4-6) Valsartan (Valsartan 320 Mg Tablet) 320 mg PO DAILY [facility] Last Admin: 07/18/24 09:00 Dose: 320 mg Documented By: ALEKSANDER Labs 07/17/24 01:35 07/17/24 01:35 Procedures Date of Service Date of Service: 07/18/24 Progress Note: A&P Assessment and plan (1) Acute cholecystitis: Status: Acute Assessment and Plan: S/P lap adriano continues to do well postop good GI function abd soft and benign ok to dc home instructions reinforced dw Carina Time Spent With Patient Time: Total time managing care of this patient today ____ minutes. Quality Stroke Does the patient have a stroke diagnosis?: No VTE Prior VTE?: No VTE Risk Level:: Surgical - moderate VTE Device Contraindication: N/A - Device Ordered VTE Drug Contraindication: Treatment Not Indicated
[2024-07-18 09:58] VITALS: BP 127/60; PULSE 58; RESP 16; TEMP 36.3; O2SAT 96
--- NOTE | 2024-07-18 11:36 | PM.DS ---
DS: Providers Provider Date of Service: 07/18/24 Date of admission: 07/17/24 11:49 Date of discharge: 07/18/24 Primary care physician: Javed Gonzales MD DS: Diagnosis Discharge Diagnosis (1) Acute cholecystitis: Status: Acute DS: Summary Hospital Course Hospital Course: HPI AT ADMISSION: Jeremías Alonso is a 59 year old male with PMH of hypertension, hyperlipidemia, eosinophilic fasciitis, hx of calcium deposits who presented to the ED with complaints of acute onset RUQ abd pain. He reports this began last night at midnight and awoke him out of sleep. He denies fever, chills, back pain, diarrhea, sick contacts. He was not nauseous at home however developed persistent nausea/vomiting after receiving dilaudid. Work up in the ED included CBC, BMP, LFTs which were significant for a mildly elevated bilirubin of 1.3. No leukocytosis. CT scan abd pelvis and ABD US showed impacted stone in the gallbladder neck with very mild gallbladder wall thickening, pericholecystic fat stranding. He feels improved this morning in regards to pain. He has persistent nausea as noted above. He denies previous similar episodes of pain. at bedside who reports the patient is very active and works out daily with weight loss of over 40lbs the past several months. He denies chest pain, difficulty breathing. Reports history of inguinal hernia repair. HOSPITAL COURSE: The patient was admitted to the surgical service for further treatment of the symptomatic gallbladder, possible acute cholecystitis. He elected to proceed with laparoscopic cholecystectomy, possible open while he was inpatient. He was added onto the OR schedule for that day. On 07/17/24, a laparoscopic cholecystectomy was performed by Dr. Melendez without complication. The patient tolerated the procedure well. He had an uncomplicated recovery course. On POD #1, he felt well and was tolerating a solid diet without nausea or vomiting, had good pain control and was ambulating without difficulty. He was hemodynamically stable. His abdomen was benign with appropriate post op tenderness and clean and intact dressings. He felt ready for discharge. He was discharged to home on 07/18/24 in stable condition. He is to follow up in the office in 2 weeks. Status at Discharge Functional status at discharge: independent ambulation Time Attestation Discharge Coordination Time (in mins): 30 Quality: Safe Use of Opioids Does Pt have an Active Cancer Diagnosis on the Problem List?: No Quality: Stroke Does the patient have a stroke diagnosis?: No Physical Exam Vital Signs: Vital Signs: Last Vital Signs Temp 97.3 F 07/18/24 09:58 Pulse 58 07/18/24 09:58 Resp 16 07/18/24 09:58 BP 127/60 07/18/24 09:58 Pulse Ox 96 07/18/24 09:58 O2 Del Method Room Air 07/18/24 09:58 O2 Flow Rate 3 07/17/24 13:00 BMI result Body Mass Index 32.1 Const: General: comfortable, no acute distress and alert Orientation/consciousness: patient oriented x3 Resp: Effort & Inspection: normal respiratory effort GI: Other: dressings clean and intact Inspection: No distended Palpation (GI): Soft to palpation and no guarding Neuro: General: patient oriented x3 DS: Data Data Completed and Pending Completed studies during hospitalization [Text1]: 07/17/24 12:25 Surgical [PTH] Routine Gallbladder, cholecystectomy: Chronic cholecystitis with adenomyomatous hyperplasia and cholelithiasis. Discharge Plan Discharge Anticipated Discharge Date/Time: 07/18/24 10:09 Patient Disposition: Home, Self-Care Discharge Diagnosis: acute cholecystitis s/p laparoscopic cholecystectomy Referrals: Javed Gonzales MD [Primary Care Provider] - 1 Week Coy Melendez MD [Physician] - 2 Weeks Discharge Medications: New docusate sodium [Colace] 100 mg capsule 100 mg PO BID Qty: 30 0RF tramadol 50 mg tablet 50 mg PO Q4H PRN (Reason: pain (scale score 7-10)) Qty: 20 0RF ondansetron 8 mg tablet,disintegrating 8 mg PO Q8H PRN (Reason: nausea and vomiting) Qty: 20 0RF Continued multivitamin Tablet 1 tab PO DAILY hydroxychloroquine [Plaquenil] 200 mg Tablet 200 mg PO BID methylprednisolone 4 mg tablet 4 mg PO BID atorvastatin 20 mg tablet 20 mg PO DAILY valsartan-hydrochlorothiazide 320-12.5 mg tablet 1 tab PO DAILY acetaminophen [Tylenol] 325 mg Tablet 325 mg PO Q4H PRN (Reason: Pain) calcium carbonate 500 mg calcium (1,250 mg) Tablet 1,000 mg PO DAILY ibuprofen 200 mg Tablet 200 mg PO Q6H PRN (Reason: Pain) Discharge Orders: Discharge Order (Routine); Ordered 07/18/24 Ordered By: Coy Melendez Diet: Advance to usual diet Activity on Discharge: No heavy lifting Print Language: [place] Activity Restrictions/Additional Instructions: If the incision area is tender, you may apply an ice pack for short intervals (No more than 20 minutes on, followed by at least 20 minutes off). Do not apply heat. Do not use creams, lotions, or topical antibiotics. These can cause infection or allergic reaction. Ok to shower 24 hours after your surgery. Remove bandaids in 2 days and replace. You have steri strips (small white cloth strips) covering your incision- these will fall off ~1 week. Follow up in office with Dr. Melendez in 2 weeks. ([phone]) No heavy lifting (>10-20lbs) or strenuous activity! Call Your Doctor If: -Your temperature exceeds 101.5? F -You experience excessive pain or swelling -You have an unexpected reaction to medication -You have excessive bleeding -You experience continued vomiting/nausea -Your incision begins to separate -Your incision shows signs of infection such as increased redness, swelling, excessive pain, drainage (light blood or clear fluid is normal) or heat Care Plan Goals: Return to baseline health and resume normal activities following recovery period. Health Concerns: acute cholecystitis HTN Plan of Treatment: s/p laparoscopic cholecystectomy f/u in office in 2 weeks Assessment: Doing well post op. Patient Instructions: Gallstones (ED), Acute Nausea and Vomiting (ED), Acute Abdominal Pain (DC) Discharge Date/Time: 07/18/24 10:22
--- NOTE | 2024-07-18 11:36 | MHC.CM.PN ---
PT LIVES WITH HIS AND IS INDEPENDENT WITH CARE NO DME OR SERVICES NO HCP PCP: RENETTA BUENROSTRO PT TO DC HOME TODAY WITH NO SERVICES VIA PRIVATE TRANSPORT
--- NOTE | 2024-07-18 12:35 | HO.POSTANES ---
Post Anesthesia Evaluation Post Anesthesia Evaluation Date of Service: 07/18/24 Vital Signs: Vital Signs Temp Pulse Resp BP Pulse Ox O2 Del Method 07/18/24 09:58 97.3 F 58 16 127/60 96 Room Air 07/18/24 07:19 98.3 F 56 14 117/63 95 Room Air Anesthesia: General Endotracheal-GETA Mental Status: Awake Pain Control: Satisfactory Nausea/Vomiting: None Hydration: Adequate Anesthesia-Related Issues: No Anes. Related Issues
== END 2024-07-18 10:22 | disposition home or self-care (01) | DRG 263 ==
LOC: HO.ED 11:02 → HO.SSS 11:44 → HO.SSSA 12:01 → HO.S3 13:12
PROVIDERS: Internal Medicine; Absent Provider Physician Assistant Surgical; Admitting Provider Physician Assistant Surgical; Emergency Provider Emergency Medicine Emergency Medical Services; PCP Internal Medicine; Visit Provider Surgery
PROC: 0FT44ZZ Resection of Gallbladder, Percutaneous Endoscopic Approach (ICD-10-PCS; CPT 47562; principal; 2024-07-17 11:30)
DX: K80.00 Calculus of gallbladder with acute cholecystitis without obstruction (principal); E78.5 Hyperlipidemia, unspecified; I10 Essential (primary) hypertension; Z79.899 Other long term (current) drug therapy
CPT/HCPCS: 47562; 36415; 74176; 76705; 80053; 82248; 83690; 85025; 88304; 93005; 99221; 99285; J0737; J1171; J1790; J1885; J2003; J2250; J2405; J2704; J2795; J3010; J7120

== ENCOUNTER → 2024-07-17 01:29 | Outpatient (BNV) | payer OTHER, SELFPAY | PROVIDERS: Absent Provider Physician Assistant Surgical; Admitting Provider Physician Assistant Surgical; Emergency Provider Emergency Medicine Emergency Medical Services; PCP Internal Medicine; Visit Provider Internal Medicine Cardiovascular Disease | DX: I45.10 Unspecified right bundle-branch block (principal); I51.7 Cardiomegaly; R00.1 Bradycardia, unspecified | CPT/HCPCS: 93010 ==

== ENCOUNTER → 2024-07-17 02:12 | Outpatient (BNV) | payer OTHER, SELFPAY | PROVIDERS: Emergency Provider Internal Medicine; PCP Internal Medicine; Visit Provider General Practice | DX: R10.12 Left upper quadrant pain (principal); K80.20 Calculus of gallbladder without cholecystitis without obstruction | CPT/HCPCS: 74176; 76705 ==

== ENCOUNTER → 2024-07-17 11:49 | Outpatient (BNV) | payer OTHER, SELFPAY | PROVIDERS: Absent Provider Physician Assistant Surgical; Admitting Provider Physician Assistant Surgical; Emergency Provider Emergency Medicine Emergency Medical Services; PCP Internal Medicine; Visit Provider Surgery | DX: K81.0 Acute cholecystitis (principal) | CPT/HCPCS: 99024; 99499 ==

== ENCOUNTER 2024-07-30 08:11 | Outpatient (AMB) | payer OTHER, SELFPAY ==
--- NOTE | 2024-07-30 08:14 | A.OFFVIS_ITS ---
Vital Signs 07/30/24 08:21 Weight 251 lb BP 132/70 Blood Pressure Location Rt brachial Position Sitting Pulse 63 Intake Visit Reasons: s/p cholecystectomy Intake Note: Patient is seen in office for post op assessment post laparoscopic cholecystectomy. Pt c/o: reports incision healing well. Steri strips fell off. Never took rx pain meds. 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 He denies any pain, has only had to take OTC Tylenol once or twice. He has no concerns at this time. Denies discharge redness swelling around the incision sites. States his appetite is back to baseline. He reports that in the 1st few days postop he did not have a bowel movement however he took some Colace which helped him produce a bowel movement, now his bowel movements have been regular and at baseline. He denies any strenuous activity. He denies fever or chills at home. He has questions about returning to exercise. 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 PENDING SALE TO [facility] Medical History (Updated 07/26/24 @ 00:01 by Arline Hoyos) Acute cholecystitis H/O echocardiogram Sleep apnea HTN (hypertension) Hx of pulmonary fibrosis GERD (gastroesophageal reflux disease) Eosinophilic fasciitis Surgical History (Updated 07/30/24 @ 08:37 by Jeremías See PA-C) History of laparoscopic cholecystectomy (07/17/24) History of surgery History of esophagogastroduodenoscopy (EGD) H/O colonoscopy Hx of left inguinal hernia repair Hx of cystoscopy History of incision and drainage Hx of hand surgery Social History Household Members: Spouse Housing: House Do you presently have visiting nurse or other home services: No Patient Tobacco Use Status: Never used Tobacco Advance Directives Date on File: 07/17/24 service: No Review of Systems Const All systems reviewed & are unremarkable except as noted in HPI and below Physical Exam Vital Signs: Last Vital Signs Pulse 63 07/30/24 08:21 BP 132/70 07/30/24 08:21 Const General: comfortable and no acute distress Orientation/consciousness: patient oriented x3 Resp Effort & Inspection: normal respiratory effort and able to speak in complete sentences GI Other: Incision sites evaluated, some mild resolving ecchymosis noted. Incision sites are clean dry and intact. No surrounding erythema, no palpable fluid collection, no evidence of discharge. They are nontender and appear to be healing well Inspection: No distended Palpation (GI): Soft to palpation, not firm, nontender, no guarding and not rigid Percussion: Yes normal to percussion Neuro General: patient oriented x3 Assessment & Plan Assessment & Plan (1) S/P cholecystectomy: Comment: 07/17/2024 Code(s): Z90.49 - Acquired absence of other specified parts of digestive tract Category: Medical Plan 59-year-old male s/p laparoscopic cholecystectomy on 07/17/2024 presenting to the office for routine follow-up. Patient is doing very well overall, he denies pain, he has no concern for infection around any of his incision sites. Bowel function and appetite are returned to baseline. Patient had some mild constipation in the immediate days postop which has since resolved. He denies fever or chills. Abdominal exam is benign and soft. Incision sites appear to be healing well. No concern for infection at this time We discussed returning to activity. I recommended the patient continue to avoid strenuous activity and heavy lifting greater than 15-20 lb for the next 2 weeks. Patient will follow- up in 2 weeks in the office, he can return sooner with any concerns. Surgical pathology as follows: Chronic cholecystitis with adenomyomatous hyperplasia and cholelithiasis Medications: Discontinued tramadol Discontinued Reason: Patient no longer taking 50 mg PO Q4H PRN 20 tabs 0RF pain (scale score 7-10) Coding Level of Care Code Global (83356) Diagnoses S/P cholecystectomy Z90.49
--- OUTSIDE RECORDS SUMMARY | 2024-07-30 08:15 | XMS_ITS | Patient Health Record ---
Author Organization Javed Gonzales MD Address [address] [place], [place] [id number] Care Team Providers Care Neonatal Critical Care Nurse Name Role Phone Javed Gonzales Primary Care Provider Allergies Allergen (clinical drug ingredient) Drug/Non Drug Allergy documented on EMR Reaction Allergy Type Onset Date Status morphine Morphine Sulfate n/v Drug Allergy Active gabapentin Gabapentin (uncoded) visual disturbance Allergy Active Results Component Value Reference Range Notes Liver Panel Reviewed date:12/05/2023 04:16:55 PM Interpretation: Performing Lab:[facility], [address] [place] [phone] Notes/Report: Bilirubin Total 1.8 0.0-1.0 mg/dL Bilirubin Direct 0.5 0.0-0.5 mg/dL Aspartate Amino Transferase 27 5-37 U/L Alanine Aminotransferase 32 0-40 U/L Total Protein 6.8 6.5-8.0 g/dL Albumin Level 4.1 3.5-5.0 g/dL Alkaline Phosphatase 52 39-117 U/L Lipid Panel with Reflex Reviewed date:12/05/2023 04:18:53 PM Interpretation: Performing Lab:[facility], [address] [place] [phone] Notes/Report: Triglycerides 106 <150 mg/dL Desirable Triglyceride: [...] ff Reviewed date:06/01/2024 04:34:27 PM Interpretation: Performing Lab:[facility], [address] [place] [phone] Notes/Report: White Blood Count 6.1 4.8-10.8 X10*3/uL [...] 0.0-0.2 /100WBC Neutrophils Absolute Auto 3.2 2.0-8.3 x10*3/uL Imm Gran Abs Auto 0.01 0.00-0.03 X10*3/uL Lymphocytes Absolute Auto 1.9 1.2-4.9 X10*3/uL Monocytes Absolute Auto 0.8 0.1-1.2 X10*3/uL Eosinophils Absolute Auto 0.2 0.0-0.4 X10*3/uL Basophils Absolute Auto 0.0 0.0-0.2 X10*3/uL NRBC Abs Auto 0.000 0.0-0.012 X10*3/uL Lipid Panel Reviewed date:06/01/2024 01:52:31 PM Interpretation: Performing Lab:[address] [phone] Notes/Report: Triglycerides 78 <150 mg/dL Desirable Triglyceride: [...] (Free>4and<10) Reviewed date:06/01/2024 01:41:54 PM Interpretation: Performing Lab:[address] [phone] Notes/Report: PSA,Total (Free>4and<10) 1.51 0.00-4.00 ng/mL A [...] Random Reviewed date:06/01/2024 01:49:05 PM Interpretation: Performing Lab:[address] [phone] Notes/Report: Creatinine Urine 274.70 Microalbumin Urine 10.0 Microalbum/Creatinine Ratio Ur 3.6 <30 ug/mg cr Albumin/Creatinine Ratio Reference Ranges: Normal: < 30 ug/mg creatinine Microalbuminuria: 30 - 300 ug/mg creatinine Clinical Albuminuria: > 300 ug/mg creatinine Hemoglobin A1c Reviewed date:06/01/2024 01:43:03 PM Interpretation: Performing Lab:[facility], [address] [place] [phone] Notes/Report: Hemoglobin A1c % 5.2 <6.0 % [...] average glucose, using the formula of the Y4S-Wogiips Average Glucose study (ADAG), Diabetes Care, Vol.31,#8, Oct. 2007 UA ClnCatch+Micro w/rflx Cul t Reviewed date:06/01/2024 01:53:58 PM Interpretation: Performing Lab:[facility], [address] [place] [phone] Notes/Report: Urine, Clean Catch Color Urine Dark Yellow Appearance Urine Clear PH 6.5 5.0-9.0 Glucose Urine UA Negative Negative mg/dL Urine Blood Negative Negative Specific Granger - Urine 1.025 1.005-1.025 Urine Protein 30 (1+) Neg-Trace mg/dL Urine Ketones Negative Negative mg/dL Nitrite Urine Negative Negative Leukocyte Esterase Urine Negative Negative RBC Urine 0-2 0-2 /HPF WBC Urine 0-5 0-5 /HPF Squamous Epithelial Cell Urine 0-2 0-2 /HPF Bacteria Urine None Seen None Seen Hyaline Casts Urine 0-2 0-2 /LPF SARS-CoV2/FLU/RSV Reviewed date:04/21/2024 12:25:26 PM Interpretation: Performing Lab:[facility], [address] [place] [phone] Notes/Report: Influenza A PCR NEGATIVE Negative Influenza [...] by authorized laboratories. Testing performed on the [employer] GeneXpert utilizing real-time RT-PCR. All SARS CoV2 and positive influenza A/B results are reported to [facility]. Occult Blood, Stool, Guaiac Reviewed date:06/08/2024 11:23:12 AM Interpretation:Negative Performing Lab: Notes/Report: Negative Occult Blood, Stool, Guaiac Neg Hold Gold Reviewed date:12/05/2023 12:21:53 PM Interpretation: Performing Lab:[facility], [address] [place] [phone] Notes/Report: Nova Gold See Note Specimen held untested for 24 hours; Call to request Chemistry testing. Comprehensive Met. Panel Reviewed date:06/01/2024 01:40:27 PM Interpretation: Performing Lab:[facility], [address] [place] [phone] Notes/Report: Sodium 143 135-145 mmol/L Potassium 3.7 [...] 3.5-5.0 g/dL Alkaline Phosphatase 41 39-117 U/L Complete Blood Count Auto Di ff Reviewed date:07/19/2024 05:41:20 PM Interpretation: Performing Lab:[facility], [address] [place] [phone] Notes/Report: White Blood Count 7.3 4.8-10.8 X10*3/uL Red Blood Count 4.52 4.60-5.80 X10*6/uL Hemoglobin 13.9 14.0-18.0 g/dl Hematocrit 40.7 42.0-52.0 % Mean Corpuscular Volume 90.0 80.0-98.0 fL Mean Corpuscular Hemoglobin 30.8 27.0-33.0 pg Mean Corpuscular HGB Conc 34.2 31.0-36.0 g/dl Red Cell Distribution Width 13.2 11.0-16.0 % Platelet Count 164 160-400 X10*3/uL Mean Platelet Volume 10.0 9.4-12.4 fL Neutrophils Percent Auto 59.5 45-73 % Imm Gran Pct Auto 0.1 0.0-0.4 % Lymphocytes Percent Auto 26.8 20-40 % Monocytes Percent Auto 10.4 2-11 % Eosinophils Percent Auto 2.5 0-4 % Basophils Percent Auto 0.7 0-2 % NRBC Pct Auto 0.0 0.0-0.2 /100WBC Neutrophils Absolute Auto 4.4 2.0-8.3 x10*3/uL Imm Gran Abs Auto 0.01 0.00-0.03 X10*3/uL Lymphocytes Absolute Auto 2.0 1.2-4.9 X10*3/uL Monocytes Absolute Auto 0.8 0.1-1.2 X10*3/uL Eosinophils Absolute Auto 0.2 0.0-0.4 X10*3/uL Basophils Absolute Auto 0.1 0.0-0.2 X10*3/uL NRBC Abs Auto 0.000 0.0-0.012 X10*3/uL Comprehensive Met. Panel Reviewed date:07/19/2024 05:41:01 PM Interpretation: Performing Lab:[facility], [address] [place] [phone] Notes/Report: Sodium 140 135-145 mmol/L Potassium 4.0 3.3-5.1 mmol/L Chloride 105 96-108 mmol/L Carbon Dioxide 24 22-29 mmol/L Anion Gap 15 12-20 Blood Urea Nitrogen 13 9-16 mg/dL Creatinine 0.68 0.5-1.4 mg/dL Creatinine Clr Calc Pharmacy 156.6 eGFR (calculated from the MDRD study equation) and eCrCl (calculated from the Cockcroft-Gault equation) are based on different parameters and may not yield comparable results. If eCrCl result is absurd, please check patient's height/weight. Estimated Glomerular Filt Rate > 60 Chronic Kidney Disease: Estimated GFR < 60 mL/min/1.73m2 Severe Kidney Disease: Estimated GFR < 15 mL/min/1.73m2 Glucose Random 94 60-115 mg/dL Calcium 9.7 8.4-10.2 mg/dL Bilirubin Total 1.4 0.0-1.0 mg/dL Slight Icte coleen. Aspartate Amino Transferase 30 5-37 U/L Alanine Aminotransferase 29 0-40 U/L Total Protein 6.5 6.5-8.0 g/dL Albumin Level 4.0 3.5-5.0 g/dL Alkaline Phosphatase 41 39-117 U/L Liver Panel Reviewed date:07/17/2024 12:49:15 PM Interpretation: Performing Lab:[address] [phone] Notes/Report: Bilirubin Direct 0.4 0.0-0.5 mg/dL Slight Ict erus. Lipase Reviewed date:07/17/2024 12:49:06 PM Interpretation: Performing Lab:[facility], [address] [place] [phone] Notes/Report: Lipase 22 8-78 U/L Pathology Reviewed date:07/20/2024 12:28:26 PM Interpretation: Performing Lab:[facility], [address] [place] [phone] Notes/Report: --- Name: GavinJeremías More Age/Sex: 59/M : 1965 Unit#: [id number] Attend Dr: Coy Melendez MD Re07/17/24 Status : DIS IN Location: [facility] 354-1 Disch: 07/18/24 --- SPEC : [id number] REC -1305 STATUS: ASHA [facility] NUM: [id number] DALILA: 07/17/24-1225 [facility] DR: Coy Melendez MD ENTERED: 07/17/24- 09 SP TYPE: Surgical OTHR DR: Javed Gonzales MD ORDERED: Gross Micro L3 Diagnosis Gallbladder, cholecystectomy: Chronic cholecystitis with adenomyomatous hyperplasia and cholelithiasis. Clinical History Pre-Op Dx: Biliary colic Post-Op Dx: Acute cholelithiasis Microscopic Description Microscopic sections reviewed. Material Received Gallbladder Gross Description Received in formalin labeled gallbladder? is a 9.5 x 4.0 x 3.0 cm intact, smooth and shaggy, stevenson-purple a nd blue-green gallbladder resected in continuity with 0.4 cm of clipped yet patent cystic du ct. Upon opening the gallbladder contains copious green-black bile and lodged within the ne ck of the gallbladder, immediately proximal to the margin of resection of the cystic duct i s a 1.2 cm hard green-black cholelith. The mucosa is finely reticulated, velvety , stevenson-brown. On sectioning the wall measures up to 0.15 cm in thickness and is unremarkable. The pericholecystic adipose tissue is unremarkable. Motel Operator sections are submitt ed in a cassette labeled A1 to include the margin of resection of the cystic duct. CEDS Copies To: Javed Gonzales MD [facility] [address] [place] [address] Coy Melendez MD [facility] [address] [facility] [address] CONTINUED ON NEXT PAGE --- Name: Jeremías Alonso Age/Sex: 59/M : 1965 Unit#: [id number] Attend Dr: Coy Melendez MD Re07/17/24 Status : DIS IN Location: [facility] 354-1 Disch: 07/18/24 --- SPEC : [id number] RECD : 07/17/24-1306 STATUS: ASHA [facility] NUM: [id number] DALILA: 07/17/24-1225 [facility] DR: Coy Melendez MD ENTERED: 07/17/24- 09 SP TYPE: Surgical OTHR DR: Javed Gonzales MD ORDERED: Theo Micro L3 --- Signed (signature on file) Purnima Kaela 07/20/24 1101 --- END OF REPORT CT abdomen pelvis wo con Reviewed date:07/17/2024 12:48:57 PM Interpretation: Performing Lab: Notes/Report: [address] [address] [address] Scan Report Signed Patient: Jeremías Alonso MR#: [id number] 1 : 1965 Acct:[id number] Age/Sex: 59 / M ADM Date: 07/17/24 Loc: HO.ED Attending Dr: Ordering Physician: Bryan Goodman MD Date of Service: 07/17/24 Procedure(s): CT abdomen pelvis wo IV con Accession Number(s): [id number] cc: Javed Gonzales MD; Bryan Goodman MD Report Number: [id number]: Total DLP = 899.00 mGy-cm CLINICAL HISTORY: lUQ pain CT abdomen and pelvis without contrast Comparison: None Findings: Bilateral septal thickening, fibrotic changes and ground-glass opacities are present within the visualized lung bases. 9 mm right liver cyst or hemangioma is noted. Mild pericholecystic fat stranding or inflammatory changes are present with a large gallstone in the neck of the gallbladder. Pancreas, spleen and adrenal glands are within normal limits. Kidneys are non hydronephrotic. 1.8 cm probable cyst is in the left kidney. No bowel obstruction, pneumoperitoneum, or pneumatosis. Large fat containing right inguinal hernia is present. The bones are intact. Extensive heterotopic ossification is noted within the pelvic adductor musculature Atherosclerotic vascular calcifications are present. IMPRESSION: 1. Pericholecystic fat stranding or inflammatory change with a large gallstone in the neck of the gallbladder. Right upper quadrant ultrasound may be helpful for further evaluation if there is clinical concern of cholecystitis. 2. Septal thickening or fibrotic changes in the lung bases with scattered ground-glass opacities or infiltrates. 3. Ancillary CT findings detailed above. This document has been electronically signed by: Yohan Camarillo MD, PHD on 07/17/2024 03:34:51 Dictated By: Yohan Camarillo MD Signed By: <Electronically signed by Yohan Camarillo MD in OV> 07/17/24335 DD/ 3 TD/TT: 07/17/24333 Building Illuminating Engineer: [place] [address] CT Scan Report Signed Patient: Jeremías Alonso MR#: [id number] 1 : 1965 Acct:[id number] Age/Sex: 59 / M ADM Date: 07/17/24 Loc: HO.ED Attending Dr: Ordering Physician: Bryan Goodman MD Date of Service: 07/17/24 Procedure(s): CT abdomen pelvis wo IV con Accession Number(s): [id number] cc: Javed Gonzales MD; Bryan Goodman MD Report Number: [id number]: Total DLP = 899.00 mGy-cm CLINICAL HISTORY: Jennifer Q pain CT abdomen and pelvi s without contrast Comparison: None Findings: Bilateral septal thickening, fibrotic changes and ground-glass opacities are present within t he visualized lung bases. 9 mm right liver cys t or hemangioma is noted. Mild pericholecystic fat stranding or inflammatory changes are present with a large gallstone in the neck of the gallbladder. Pancreas, spleen and adrenal glands are within normal limits. Kidneys are non hydronephrotic. 1.8 cm probable cyst is in the left kidney. No bowel obstruction , pneumoperitoneum, or pneumatosis. Large fat containing right inguinal hernia is present. The bones are intact. Extensive heterotopi c ossification is noted within the pelvic adductor musculature Atherosclerotic vascular calcifications are present. IMPRESSION: 1. Pericholecystic f at stranding or inflammatory change with a large gallstone in the nec k of the gallbladder. Right upper quadrant ultrasound may be helpful for further evaluation if there is clinical concern of cholecystitis. 2. Septal thickening or fibrotic changes in the lung bases with scattered ground-glass opaciti es or infiltrates. 3. Ancillary CT findings detailed above. This document has be en electronically signed by: Yohan Camarillo MD, PHD on 07/17/2024 03:34:51 Dictated By: Yohan Camarillo MD Signed By: <Electronically signed by Yohan Camarillo MD in OV> 07/17/24335 DD/ 3 TD/TT: 07/17/24333 Building Illuminating Engineer: US abdomen limited Reviewed date:07/17/2024 12:46:18 PM Interpretation: Performing Lab: Notes/Report: [address] [address] Ultrasound Report Signed Patient: Jeremías Alonso MR#: [id number] 1 : 1965 Acct:[id number] Age/Sex: 59 / M ADM Date: 07/17/24 Loc: HO.ED Attending Dr: Ordering Physician: Bryan Goodman MD Date of Service: 07/17/24 Procedure(s): US abdomen limited Accession Number(s): [id number] cc: Javed Gonzales MD; Bryan Goodman MD EXAMINATION: US ABDOMEN LIMITED CLINICAL INFORMATION: Gallstones.. COMPARISON: CT abdomen and pelvis without IV contrast 07/17/2024 TECHNIQUE: Real-time imaging of the right upper quadrant abdominal viscera. FINDINGS: PANCREAS: Visualized portions are unremarkable. LIVER: The liver is normal in size. The liver contour is normal. Parenchymal echogenicity is slightly increased. There is a small anechoic cyst in the right hepatic lobe measuring 1.4 x 1.0 x 0.8 cm There is no intrahepatic biliary duct dilatation seen. GALLBLADDER: There is impacted echogenic stone in neck of the gallbladder. The gallbladder wall is thickened measuring 0.35 cm. No roly gallbladder fluid collection. COMMON BILE DUCT: Normal in caliber measuring 0.4 cm in diameter. RIGHT KIDNEY: No hydronephrosis. No renal calculi or focal parenchymal lesions. The FREE FLUID: None. US/US abdomen limited IMPRESSION: Impacted echogenic stone in the gallbladder neck with mild gallbladder wall thickening. Findings consistent with earlier CT abdomen findings. Mildly echogenic liver with the right hepatic benign cyst. Electronically signed by: Derek Stapleton MD 07/17/2024 08:14 AM EDT RP Dictated By: Derek Stapleton MD Signed By: <Electronically signed by Derek Stapleton MD in OV> 07/17/24 0814 DD/ TD/TT: 07/17/24 0728 Building Illuminating Engineer: [place] [address] Ultrasound Report Signed Patient: Jeremías Alonso MR#: [id number] 1 : 1965 Acct:[id number] Age/Sex: 59 / M ADM Date: 07/17/24 Loc: HO.ED Attending Dr: Ordering Physician: Bryan Goodman MD Date of Service: 07/17/24 Procedure(s): US abdomen limited Accession Number(s): [id number] cc: Javed Gonzales MD; Bryan Goodman MD EXAMINATION: US ABDOMEN LIMITED CLINICAL INFORMATION: Gallstones.. COMPARISON: CT abdomen and pelvi s without IV contrast 07/17/2024 TECHNIQUE: Real-time imaging of the right upper quadrant abdominal viscera. FINDINGS: PANCREAS: Visualized portions are unremarkable. LIVER: The liver is normal in size. The liver contour is normal. Parenchymal echogenicity is slightly increased. There is a small anechoic cyst in the right hepatic lobe measuring 1.4 x 1.0 x 0.8 cm There is no intrahepatic biliary duct dilatation seen. GALLBLADDER: There i s impacted echogenic stone in neck of the gallbladder. The gallbladder wall is thickened measuring 0.35 cm. No roly gallbladder flu id collection. COMMON BILE DUCT: Normal in caliber measuring 0.4 cm in diameter. RIGHT KIDNEY: No hydronephrosis. No renal calculi or focal parenchymal lesions. The FREE FLUID: None. US/US abdomen limited IMPRESSION: Impacted echogenic stone in the gallbladder neck with mild gallbladder wall thickening. Findings consistent with earlier CT abdomen findings. Mildly echogenic bill er with the right hepatic benign cyst. Electronically pedro d by: Derek Stapleton MD 07/17/2024 08:14 AM EDT RP Dictated By: Derek Stapleton MD Signed By: <Electronically signed by Derek Stapleton MD in OV> 07/17/24 0814 DD/ TD/TT: 07/17/2428 Building Illuminating Engineer: TYE Reason For Referral No Information Medications Medication SIG (Take, Route, Frequency, Duration) Notes Start Date End Date Status Albuterol Sulfate HFA 108 (90 Base) MCG/ACT 1 puff as needed Inhalation every 4 hrs 04/21/2024 Active Ibuprofen 800 MG 1 tablet with food or milk as needed Orally every 8 hrs Not-Taking Calcium 600 MG 2 tablets with [...] times a day for 30 06/23/2013 Not-Taking Valsartan-hydroCHLOROthiazid e 320-12.5 MG 1/2 tab Active Ventolin HFA 108 (90 Base) MCG/ACT 2 puffs as needed Inhalation every 6 hrs for 30 days 03/15/2017 Not-Taking Immunizations Vaccine Route Administration Date Status Comme nts Flu Vaccine Unknown 11/02/2010 Administered Flu Vaccine IM Intramuscular 12/04/2011 Administered Flu Vaccine Unknown 12/25/2012 Administered Flu Vaccine Unknown 01/30/2014 [facility]ered [facility] Intramuscular 02/04/2014 Administered [...] Problem Status W/U Status Risk Notes Problem 947087572 Atherosclerotic heart disease of [place] coronary artery without angina pectoris (I25.10) Active confirmed Problem 643921379 Reflux esophagit is (K21.00) Active confirmed Problem 69300197 Tinnitus, left e ar (H93.12) Active confirmed Problem Bilateral tinnitus (6288957076018) Tinnitus, bilateral (H93.13) Active confirmed Problem 67111177 Essential hypertension (I10) Active confirmed Problem 51456321 RBBB (I45.10) Active confirmed Problem 594382711 History of hematuria (Z87.448) Active confirmed Problem 240651444 Interstitial sophia g disease (J84.9) Active confirmed Problem 5169894 Calcinosis (E83.59) Active confirmed Problem 687752041 Claudication (I73.9) Active confirmed Problem hypercholesterolemia (disorder) (53371941) Hypercholesteremia (E78.00) Active confirmed Problem 60450857 Testicular nodul e (N50.89) Active confirmed Problem 059376419 Chondrocalcinosi s, cause unspecified, involving multiple sites (M11.29) Active confirmed Problem 164665536 Coronary artery calcification seen on CAT scan (I25.10) Active confirmed Problem 97870558 New onset tinnit us of left ear (H93.12) Active confirmed Vital Signs Blood pressure diastolic 56 mm Hg 07/23/2024 birdie ght is down 13 pounds since 06-08-24 Height 74.25 in 07/23/2024 weight is down 13 pounds since 06-08-24 Blood pressure systolic 100 mm Hg 07/23/2024 weig ht is down 13 pounds since 06-08-24 Weight 253 lbs 07/23/2024 weight is down 13 pounds since 06-08-24 BMI 32.26 kg/m2 07/23/2024 weight is down 13 pounds since 06-08-24 Encounters Encounter Location Date Provider Diagnosis Javed Gonzales MD [address] [place] [id number] 12/05/2023 Javed Gonzales Hypercholesteremia E 78.00 Javed Gonzales MD [address] [place] [id number] 06/01/2024 Javed Gonzales Blood tests for rout ine general physical examination Z00.00 ; Essential hypertension I10 and Hypercholesteremia E78.00 Javed Gonzales MD [address] [place] [id number] 12/13/2023 Javed Gonzales Essential hypertensi on I10 and Hypercholesteremia E78.00 Javed Gonzales MD [address] [id number] 04/21/2024 Javed Gonzales Acute pneumonia J18. 9 Javed Gonzales MD [address] [place] [id number] 06/08/2024 Javed Gonzales Adult general medica l examination Z00.00 ; Heart murmur R01.1 ; Interstitial lung disease J84.9 ; Essential hypertension I10 ; Calcinosis E83.59 ; Hypercholesteremia E78.00 ; Colon cancer screening Z12.11 and Depression screening Z13.31 Javed Gonzales MD [address] [place] [id number] 07/23/2024 Javed Gonzales Cholecystitis K81.9 and Essential hypertension I10 Javed Gonzales MD [address] [place], [place] [id number] 11/26/2023 Javed Gonzales Hypercholesteremia E 78.00 Assessments [...] and discussed with patient, order faxed [place] [facility] [place] 06/08/2024 Heart murmur (ICD-10 - R01.1) stable, will conitnue to monitor 07/23/2024 Cholecystitis (ICD-1 0 - K81.9) doing great post up 11/26/2023 Hypercholesteremia (ICD-10 - E78.00) 06/01/2024 Essential hypertension (ICD-10 - I10) 06/08/2024 Interstitial lung disease (ICD-10 - J84.9) no complaints 07/23/2024 Essential hypertension (ICD-10 - I10) is running a little low so will cut the bp in half 06/01/2024 Hypercholesteremia (ICD-10 - E78.00) 06/08/2024 Essential [...] & LAT 11/25/2012 US ARTERY SEGMENTAL MULTILEVEL 6 ECHO 06/08/2024 Comprehensive [place]. Panel Fast Next Appt Details Provider Name:Javed Amaro ier, 09/24/2024 01:30:00 PM, [address] [place] [address], Suite [facility], [place], [place], [phone], Provider Name:Javed Amaro ier, 12/15/2024 07:00:00 AM, [address] [place] [address], Suite [facility], [place], [place], [phone], Provider Name:Javed Amaro ier, 12/21/2024 08:30:00 AM, [address] [place] [address], Suite [facility], [place], [place], [phone], Provider Name:Javed Amaro ier, 06/03/2025 07:30:00 AM, [address] [place] [address], Suite [facility], [place], [place], [phone], Provider Name:Javed Amaro ier, 06/10/2025 08:30:00 AM, [address] [place] [address], [place] [address], [place], [place], [phone], Insurance Providers Payer Name Payer Address Payer Phone Subscriber Number Group Number Insured Name Patient Relationship to Insured Coverage Start Date Coverage End Date [facility] [address] [facility] [address] [place] [phone] [id number] Jeremías Alonso Self - patient is the insured [facility] [address] [place] [address] [phone] [id number] Jeremías Alonso Self - patient is the [...]
[2024-07-30 08:21] VITALS: BP 132/70; PULSE 63
== END 2024-07-30 08:32 | disposition home or self-care (01) ==
LOC: HO.HGS 08:12
PROVIDERS: PCP Internal Medicine
DX: Z90.49 Acquired absence of other specified parts of digestive tract (principal)
CPT/HCPCS: 99024

== ENCOUNTER → 2024-07-30 08:11 | Outpatient (BNVA) | payer OTHER, SELFPAY | PROVIDERS: PCP Internal Medicine ==

== ENCOUNTER 2024-08-13 09:05 | Outpatient (AMB) | payer OTHER, SELFPAY ==
--- NOTE | 2024-08-13 09:12 | A.OFFVIS_ITS ---
Vital Signs 08/13/24 09:17 Height 6 ft 2 in Weight 247 lb 4 oz BMI 31.7 BP 109/65 Blood Pressure Location Lt brachial Position Sitting Pulse 67 Intake Visit Reasons: 2 week follow up s/p cholecystectomy Intake Note: Patient is seen in office for 2 weeks follow up visit, post cholecystectomy. 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 Has no concerns. Denies pain, fever, chills, chest pain, shortness of breath. Appetite and bowel function are at baseline. 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 [facility]LY [facility] Medical History Acute cholecystitis H/O echocardiogram Sleep apnea HTN (hypertension) Hx of pulmonary fibrosis GERD (gastroesophageal reflux disease) Eosinophilic fasciitis Surgical History History of laparoscopic cholecystectomy (07/17/24) History of surgery History of esophagogastroduodenoscopy (EGD) H/O colonoscopy Hx of left inguinal hernia repair Hx of cystoscopy History of incision and drainage Hx of hand surgery Social History Household Members: Spouse Housing: House Do you presently have visiting nurse or other home services: No Patient Tobacco Use Status: Never used Tobacco Advance Directives Date on File: 07/17/24 service: No Review of Systems Const All systems reviewed & are unremarkable except as noted in HPI and below Physical Exam Vital Signs: Last Vital Signs Pulse 67 08/13/24 09:17 BP 109/65 08/13/24 09:17 BMI result Body Mass Index 31.7 Const General: comfortable and no acute distress Orientation/consciousness: patient oriented x3 Resp Effort & Inspection: normal respiratory effort and able to speak in complete sentences GI Other: Incision sites appear feeling well no surrounding erythema, no fluid collection nontender to palpation Inspection: No Abdominal wall edema and No distended Palpation (GI): Soft to palpation, not firm, nontender, no guarding and not rigid Neuro General: patient oriented x3 Assessment & Plan Assessment & Plan (1) S/P cholecystectomy: Comment: 07/17/2024 Code(s): Z90.49 - Acquired absence of other specified parts of digestive tract Category: Surgical Plan 59-year-old male status post laparoscopic cholecystectomy on 07/17/2024 presents for routine 1 month follow-up. Patient is doing well, not experiencing any pain, has no concerns at this time. On exam patient's abdomen is soft and benign, incisions look clean and intact no concern for infection at this time. We discussed activity restrictions, at this point there were no further activity restrictions. Recommended patient slowly returned to baseline level of activity as tolerated. Patient can follow up as needed for any future concerns Coding Level of Care Code Global (51741) Diagnoses S/P cholecystectomy Z90.49
[2024-08-13 09:17] VITALS: BP 109/65; PULSE 67; BMI 31.7
--- OUTSIDE RECORDS SUMMARY | 2024-08-13 09:42 | XMS_ITS | Patient Health Record ---
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 Name Role Phone Javed Gonzales Primary Care Provider Allergies Allergen (clinical drug ingredient) Drug/Non Drug Allergy documented on EMR Reaction Allergy Type Onset Date Status morphine Morphine Sulfate n/v Drug Allergy Active gabapentin Gabapentin (uncoded) visual disturbance Allergy Active Results Component Value Reference Range Notes Liver Panel Reviewed date:12/05/2023 04:16:55 PM Interpretation: Performing Lab:[facility], [address] [place] [phone] Notes/Report: Bilirubin Total 1.8 0.0-1.0 mg/dL Bilirubin Direct 0.5 0.0-0.5 mg/dL Aspartate Amino Transferase 27 5-37 U/L Alanine Aminotransferase 32 0-40 U/L Total Protein 6.8 6.5-8.0 g/dL Albumin Level 4.1 3.5-5.0 g/dL Alkaline Phosphatase 52 39-117 U/L Lipid Panel with Reflex Reviewed date:12/05/2023 04:18:53 PM Interpretation: Performing Lab:[facility], [address] [place] [phone] Notes/Report: Triglycerides 106 <150 mg/dL Desirable Triglyceride: [...] ff Reviewed date:06/01/2024 04:34:27 PM Interpretation: Performing Lab:[facility], [address] [place] [phone] Notes/Report: White Blood Count 6.1 4.8-10.8 X10*3/uL [...] Panel Reviewed date:06/01/2024 01:52:31 PM Interpretation: Performing Lab:[address] [phone] Notes/Report: Triglycerides 78 <150 mg/dL Desirable Triglyceride: [...] (Free>4and<10) Reviewed date:06/01/2024 01:41:54 PM Interpretation: Performing Lab:[address] [phone] Notes/Report: PSA,Total (Free>4and<10) 1.51 0.00-4.00 ng/mL A [...] Random Reviewed date:06/01/2024 01:49:05 PM Interpretation: Performing Lab:[address] [address] Notes/Report: Creatinine Urine 274.70 Microalbumin Urine 10.0 Microalbum/Creatinine Ratio Ur 3.6 <30 ug/mg cr Albumin/Creatinine Ratio Reference Ranges: Normal: < 30 ug/mg creatinine Microalbuminuria: 30 - 300 ug/mg creatinine Clinical Albuminuria: > 300 ug/mg creatinine Hemoglobin A1c Reviewed date:06/01/2024 01:43:03 PM Interpretation: Performing Lab:[facility], [address] [place] [phone] Notes/Report: Hemoglobin A1c % 5.2 <6.0 % [...] average glucose, using the formula of the D6A-Hlyhlfi Average Glucose study (ADAG), Diabetes Care, Vol.31,#8, Oct. 2007 UA ClnCatch+Micro w/rflx Cul t Reviewed date:06/01/2024 01:53:58 PM Interpretation: Performing Lab:[facility], [address] [place] [phone] Notes/Report: Urine, Clean Catch Color Urine Dark Yellow Appearance Urine Clear PH 6.5 5.0-9.0 Glucose Urine UA Negative Negative mg/dL Urine Blood Negative Negative Specific Kempner - Urine 1.025 1.005-1.025 Urine Protein 30 (1+) Neg-Trace mg/dL Urine Ketones Negative Negative mg/dL Nitrite Urine Negative Negative Leukocyte Esterase Urine Negative Negative RBC Urine 0-2 0-2 /HPF WBC Urine 0-5 0-5 /HPF Squamous Epithelial Cell Urine 0-2 0-2 /HPF Bacteria Urine None Seen None Seen Hyaline Casts Urine 0-2 0-2 /LPF SARS-CoV2/FLU/RSV Reviewed date:04/21/2024 12:25:26 PM Interpretation: Performing Lab:[facility], [address] [place] [phone] Notes/Report: Influenza A PCR NEGATIVE Negative Influenza [...] by authorized laboratories. Testing performed on the SVAS Biosana GeneXpert utilizing real-time RT-PCR. All SARS CoV2 and positive influenza A/B results are reported to [facility]. Occult Blood, Stool, Guaiac Reviewed date:06/08/2024 11:23:12 AM Interpretation:Negative Performing Lab: Notes/Report: Negative Occult Blood, Stool, Guaiac Neg Hold Gold Reviewed date:12/05/2023 12:21:53 PM Interpretation: Performing Lab:[facility], [address] [place] [phone] Notes/Report: Nova Gold See Note Specimen held untested for 24 hours; Call to request Chemistry testing. Comprehensive Met. Panel Reviewed date:06/01/2024 01:40:27 PM Interpretation: Performing Lab:[facility], [address] [place] [phone] Notes/Report: Sodium 143 135-145 mmol/L Potassium 3.7 [...] ff Reviewed date:07/19/2024 05:41:20 PM Interpretation: Performing Lab:[facility], [address] [place] [phone] Notes/Report: White Blood Count 7.3 4.8-10.8 X10*3/uL [...] Panel Reviewed date:07/19/2024 05:41:01 PM Interpretation: Performing Lab:[facility], [address] [place] [phone] Notes/Report: Sodium 140 135-145 mmol/L Potassium 4.0 [...] Panel Reviewed date:07/17/2024 12:49:15 PM Interpretation: Performing Lab:[address] [phone] Notes/Report: Bilirubin Direct 0.4 0.0-0.5 mg/dL Slight Ict erus. Lipase Reviewed date:07/17/2024 12:49:06 PM Interpretation: Performing Lab:[facility], [address] [place] [phone] Notes/Report: Lipase 22 8-78 U/L Pathology Reviewed date:07/20/2024 12:28:26 PM Interpretation: Performing Lab:[facility], [address] [place] [phone] Notes/Report: --- Name: GavinJeremías More Age/Sex: 59/M : 1965 Unit#: [id number] Attend Dr: Coy Melendez MD Re07/17/24 Status : DIS IN Location: [facility] 354-1 Disch: 07/18/24 --- SPEC : [id number] REC -1305 STATUS: ASHA [facility] NUM: [id number] DALILA: 07/17/24-[address] [facility] [address]: Coy Melendez MD ENTERED: 07/17/24- 09 [...] unremarkable. The pericholecystic adipose tissue is unremarkable. Vegetable Trimmer sections are submitt ed in a cassette labeled A1 to include the margin of resection of the cystic duct. CEDS Copies To: Javed Gonzales MD [facility] [address] [place] [address] Coy Melendez MD [facility] General Surgeons [address] [facility] [place] [address] CONTINUED ON NEXT PAGE --- Name: Jeremías Alonso Age/Sex: 59/M : 1965 Unit#: [id number] Attend Dr: Coy Melendez MD Re07/17/24 Status : DIS IN Location: [facility] 354-1 Disch: 07/18/24 --- SPEC : [id number] RECD : 07/17/24-1306 STATUS: ASHA [facility] NUM: [id number] DALILA: 07/17/24-[address] [facility] [address]: Coy Melendez MD ENTERED: 07/17/24- 09 SP TYPE: Surgical OTHR DR: Javed Gonzales MD ORDERED: Theo Micro L3 --- Signed (signature on file) Purnima Kaela 07/20/24 1101 --- END OF REPORT CT abdomen pelvis wo con Reviewed date:07/17/2024 12:48:57 PM Interpretation: Performing Lab: Notes/Report: [address] [address] [address] Scan Report Signed Patient: Jeremías Alonso MR#: [id number] 1 : 1965 Acct:[id number] Age/Sex: 59 / M ADM Date: 07/17/24 Loc: HO.ED Attending Dr: Ordering Physician: Bryan Goodman MD Date of Service: 07/17/24 Procedure(s): CT abdomen pelvis wo IV con Accession Number(s): [id number] cc: Javed Gonzales MD; Bryan Goodman MD Report Number: [id number]: Total DLP = 899.00 mGy-cm CLINICAL HISTORY: [...] in OV> 07/17/24335 DD/ 3 TD/TT: 07/17/24333 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: [place] [address] CT Scan Report Signed Patient: Jeremías Alonso MR#: [id number] 1 : 1965 Acct:[id number] Age/Sex: 59 / M ADM Date: 07/17/24 Loc: HO.ED Attending Dr: Ordering Physician: Bryan Goodman MD Date of Service: 07/17/24 Procedure(s): CT abdomen pelvis wo IV con Accession Number(s): [id number] cc: Javed Gonzales MD; Bryan Goodman MD Report Number: [id number]: Total DLP = 899.00 mGy-cm CLINICAL HISTORY: [...] in OV> 07/17/24335 DD/ 3 TD/TT: 07/17/24333 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: US abdomen limited Reviewed date:07/17/2024 12:46:18 PM Interpretation: Performing Lab: Notes/Report: [address] [address] Ultrasound Report Signed Patient: Jeremías Alonso MR#: [id number] 1 : 1965 Acct:[id number] Age/Sex: 59 / M ADM Date: 07/17/24 Loc: HO.ED Attending Dr: Ordering Physician: Bryan Goodman MD Date of Service: 07/17/24 Procedure(s): US abdomen limited Accession Number(s): [id number] cc: Javed Gonzales MD; Bryan Goodman MD [...] OV> 07/17/24 0814 DD/ TD/TT: 07/17/24 0728 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: [place] [address] Ultrasound Report Signed Patient: Jeremías Alonso MR#: [id number] 1 : 1965 Acct:[id number] Age/Sex: 59 / M ADM Date: 07/17/24 Loc: HO.ED Attending Dr: Ordering Physician: Bryan Goodman MD Date of Service: 07/17/24 Procedure(s): US abdomen limited Accession Number(s): [id number] cc: Javed Gonzales MD; Bryan Goodman MD [...] in OV> 07/17/24 0814 DD/ TD/TT: 07/17/2428 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: TYE Reason For Referral No Information Medications [...] Flu Vaccine Unknown 01/30/2014 Administered [facility] IM Intramuscular 02/04/2014 Administered [...] Problem Status W/U Status Risk Notes Problem 088217281 Atherosclerotic heart disease of [place] coronary artery without angina pectoris (I25.10) Active confirmed Problem 357954835 Reflux esophagit is (K21.00) Active confirmed Problem 06235888 Tinnitus, left e ar (H93.12) Active confirmed Problem Bilateral tinnitus (8914042570389) Tinnitus, bilateral (H93.13) Active confirmed Problem 43695000 Essential hypertension (I10) Active confirmed Problem 94473740 RBBB (I45.10) Active confirmed Problem 290810927 History of hematuria (Z87.448) Active confirmed Problem 129839620 Interstitial sophia g disease (J84.9) Active confirmed Problem 9899723 Calcinosis (E83.59) Active confirmed Problem 378724575 Claudication (I73.9) Active confirmed Problem hypercholesterolemia (disorder) (20174645) Hypercholesteremia (E78.00) Active confirmed Problem 85327395 Testicular nodul e (N50.89) Active confirmed Problem 741742063 Chondrocalcinosi s, cause unspecified, involving multiple sites (M11.29) Active confirmed Problem 401773864 Coronary artery calcification seen on CAT scan (I25.10) Active confirmed Problem 69280105 New onset tinnit us of left ear [...] Javed Gonzales MD [address] [place] [id number] 12/05/2023 Javed Gonzales Hypercholesteremia E 78.00 Javed Gonzales MD [address] [place] [id number] 06/01/2024 Javed Gonzales Blood tests for rout ine general physical examination Z00.00 ; Essential hypertension I10 and Hypercholesteremia E78.00 Javed Gonzales MD [address] [place] [id number] 12/13/2023 Javed Gonzales Essential hypertensi on I10 and Hypercholesteremia E78.00 Javed Gonzales MD [address] [phone] 04/21/2024 Javed Gonzales Acute pneumonia J18. 9 Javed Gonzales MD [address] [place] [id number] 06/08/2024 Javed Gonzales Adult general medica l examination Z00.00 ; Heart murmur R01.1 ; Interstitial lung disease J84.9 ; Essential hypertension I10 ; Calcinosis E83.59 ; Hypercholesteremia E78.00 ; Colon cancer screening Z12.11 and Depression screening Z13.31 Javed Gonzales MD [address] [place] [id number] 07/23/2024 Javed Gonzales Cholecystitis K81.9 and Essential hypertension I10 Javed Gonzales MD [address] [place], [place] [phone] 11/26/2023 Javed Gonzales Hypercholesteremia E 78.00 Assessments [...] and discussed with patient, order faxed to [facility] CS dept 06/08/2024 Heart murmur (ICD-10 - [...] ARTERY SEGMENTAL MULTILEVEL 6 ECHO 06/08/2024 Comprehensive [place]. Panel Fast Next Appt Details Provider Name:Javed Amaro ier, 09/24/2024 01:30:00 PM, [address] [place] [address], Suite [facility], [place], [place], [phone], Provider Name:Javed Amaro ier, 12/15/2024 07:00:00 AM, [address] [place] [address], Suite [facility], [place], [place], [phone], Provider Name:Javed Amaro ier, 12/21/2024 08:30:00 AM, [address] [place] [address], Suite [facility], [place], [place], [phone], Provider Name:Javed Amaro ier, 06/03/2025 07:30:00 AM, [address] [place] [address], Suite [facility], [place], [place], [phone], Provider Name:Javed Amaro ier, 06/10/2025 08:30:00 AM, [address] [place] [address], [place] [address], [place], [place], [phone], Insurance Providers Payer Name Payer Address Payer Phone Subscriber Number Group Number Insured Name Patient Relationship to Insured Coverage Start Date Coverage End Date [facility] [address] [facility] [address] [place] [phone] [id number] Jeremías Alonso Self - patient is the insured [facility] [address] [place] [address] [id number] Jeremías Alonso Self - patient is the [...]
== END 2024-08-13 09:23 | disposition home or self-care (01) ==
LOC: HO.HGS 09:05
PROVIDERS: PCP Internal Medicine
DX: Z90.49 Acquired absence of other specified parts of digestive tract (principal)
CPT/HCPCS: 99024

== ENCOUNTER 2024-12-15 11:14 | Outpatient (REF) | payer OTHER, SELFPAY ==
--- OUTSIDE RECORDS SUMMARY | 2023-12-27 07:55 | XMS_ITS | Encounter Summary ---
Author Organization [facility] [place] [address] Care Team Providers Care Machine Puller Name Role Phone Javed Gonzales MD Primary Care Provider Encounter Details Date Type Department Care Team (Late st Contact Info) Description 12/27/2023 7:55 AM EDT Hospital Encounter TH HISTORIC ENCOUNTERS [facility] ONLY Deshawn Cortez MD [address] [place] [id number] Social History Tobacco Use Types Packs/Day Years Used Date Smoking Tobacco: Never Smokeless Tobacco: Never Alcohol Use Standard Drinks/Week Comments Yes 0.8 (1 standard drink = 0.6 oz p ure alcohol) Sex and Gender Information Value Date Recorded Sex Assigned at Not on file Legal Sex Male 3:04 AM EST Gender Identity Not on file Sexual Orientation Not on file documented as of this encounter Procedure Notes * Deshawn Cortez MD - 12/27/2023 3:56 PM EDT Type of Surgery Surgery Performed: Orthopedic (Excision of calcinosis at the tip of left small finger) Operative Note Date of Surgery: Dec 27, 2023 Operation Excision of calcinosis tip of left small finger Indication for Surgery The patient has eosinophilic fasciitis. He has had numerous sites of calcinosis around his body which have required resection. Many years ago he had a small calcific mass already removed from the finger but it recurred. It is bothersome and lumpy and so we discussed excising this. Risks and benefits were reviewed. Patient indicated understanding and consent to proceed. Consent Informed Consent was obtained for this operation. I have explained the nature, purpose and benefits of the operation. I have discussed the risks and benefit of the operation including possible complications or adverse events with patient/family. Alternative(s) were discussed with the patient with their relative benefits and risks as well as the consequences of not accepting the operation were included in obtaining consent. Preoperative Diagnosis: (1) Calcinosis (2) Eosinophilic fasciitis Surgeon: DESHAWN CORTEZ MD Description of Procedure Patient was identified and brought to the minor surgical suite. Consent was confirmed. Site was marked. Patient was placed supine in beachchair position on the procedure table and the armboard was brought in next the left side. His hand and forearm were scrubbed and prepped and draped. Lidocaine 1% with epinephrine buffered with sodium bicarb was utilized. Timeout was done. 4 cc was injected just distal to the distal palmar crease in the axis of the small finger. I also did 1/4 cc on the volar surface of both the proximal middle phalanges. Half cc was injected over the dorsum at the level of the metacarpal neck. We gave that a chance to take effect. I marked out a Rashawn Socorro incision along the ulnar aspect of the small finger and incorporated the old scar that was present up onto the pad of the finger. We then took a size a glove and we took the small finger off the glove and rolled over his finger for tourniquet control. Incision was made beginning down by the proximal phalanx and zigzagging it out distally. And then onto the pad of the finger. Blunt dissection was done and we identified the nerve and artery at the level just proximal to the PIP crease. There was what appeared to be a Dupuytren's-like cord running along the lateral digital sheath. I excised the small segment of this. I then worked my way distally keeping the nerve and artery in view and then taking another small segment. As we got out towards the DIP crease however the dissection was quite challenging because it definitely was scar and calcinosis. I was able to peel the skin from ulnar to radial to the midline and we bluntly dissected along the midline of the sheath and then I was able to get around onto the pad and sweep the radial tissue over. Distally I went to the far side of the calcinosis and bluntly dissected from distal to proximal. I then returned and we very carefully traced the nerve and artery out and it seemed to be heading down deep up against the bone. I was able to use the backside of a small curette to use as a tracer over the digital nerve and it jesse t under the mass and then branched out. I peeled the mass up and off of the distal phalanx at this level. This was done very slowly and incrementally and it took quite a while but we were able to peel it up and out. This will be sent for pathology. We then washed the site and we took the tourniquet off the finger. Finger pinked up. There was no untoward bleeding. In excising out the contracture of the lateral digital she the finger was a little looser at the PIP level. We then closed the wound with interrupted 4-0 Prolene. The hand was cleaned up and Xeroform was applied. I placed light gauze over the area and then we lightly harvinder wrapped the small finger to the neighboring ring finger carefully. An Roberth wrap was then placed over this as well to help hold the dressings on. Patient tolerated this well. Postoperative instructions were reviewed. Patient was discharged from minor surgery uneventfully. Anesthesia Local anesthetic Estimated Blood Loss (ml): Less than 3 cc Specimens Calcinosis Duration of Surgery: Under 90 Minutes Postoperative Plan Post Operative Diagnosis: (1) Calcinosis (2) Eosinophilic fasciitis DESHAWN CORTEZ MD Dec 27, 2023 15:56 documented in this encounter Plan of Treatment Not on file documented as of this encounter Procedures Procedure Name Priority Date/Time Associated Diagnosis Comments TISSUE EXAM Routine 12/30/2023 12:00 AM EDT documented in this encounter Results * Tissue exam (12/30/2023 12:00 AM EDT) Case Results SOFT TISSUE, CALCINOSIS LEFT SMALL FINGER-EXCISION: - SOFT TISSUE WITH CALCINOSIS (TUMORAL CALCINOSIS). Stacy Salas M.D. , Pathologist (Case electronically signed 12 30 2023) Pre-Op/Clinical Diagnosis: *CALCINOSIS LEFT SMALL FINGER *EOSINOPHILIC FASCIITIS Specimen and Site: SOFT TISSUE, CALCINOSIS LEFT SMALL FINGER-EXCISION Gross Description: Labeled calcinosis left small finger . Received in formalin with a 1.5 x 1.2 x 0.6 cm aggregate of rubbery, stevenson-white to pink-red tissue which has stevenson-white fibrotic cut surfaces with a focal yellow stippling. Hand Scudder sections are submitted in one cassette, two pieces. Physicians: DESHAWN CORTEZ M.D./CARLOS/[id number] / HISTORICAL TESTING LAB RESULTING AGENCY 12/30/2023 us Laboratory Results Historical MD LAB PATHOLOGY O RDERABLES Final Result HISTORICAL TESTING LAB RESULTING AGENCY documented in this encounter Visit Diagnoses Not on filedocumented in this encounter Care Teams Machine Puller Relationship Specialty Start Date End Date Javed Gonzales MD PCP - General Internal Medicine 03/11/12 documented as of this encounter
--- OUTSIDE RECORDS SUMMARY | 2024-06-08 04:30 | XMS_ITS ---
Author Organization Javed Gonzales MD Address [address] [place], [place] [id number] Care Team Providers Care Kiln Maintenance Name Role Phone Javed Gonzales Primary Care Provider [phone] Allergies Allergen (clinical drug ingredient) Drug/Non Drug Allergy documented on EMR Reaction Allergy Type Onset Date Status Morphine Sulfate n/v Drug Allergy Active gabapentin Gabapentin (uncoded) visual disturbance Allergy Active Results Component Value Reference Range Notes Occult Blood, Stool, Guaiac Reviewed date:06/08/2024 11:23:12 AM Interpretation:Negative Performing Lab: Notes/Report: Negative Occult Blood, Stool, Guaiac Neg REASON FOR VISIT annual visit Medications Medication SIG (Take, Route, Frequency, Duration) Notes Start Date End Date Status Ventolin HFA 108 (90 Base) MCG/ACT 2 puffs as needed Inhalation every 6 hrs for 30 days 03/15/2017 Not-Taking Ibuprofen 800 MG 1 tablet Orally Three times a day for 30 06/23/2013 Not-Taking Diflucan 150 MG 2 tablets Orally once and repeat in oneweek for 2 days 12/21/2019 Not-Taking Albuterol Sulfate HFA 108 (90 Base) MCG/ACT 1 puff as needed Inhalation every 4 hrs 04/21/2024 Active Valsartan-hydroCHLOROthiazid e 320-12.5 MG TAKE 1 TABLET DAILY Active Valium 2 MG 1 tablet as needed Orally twice a day for 7 days 07/04/2023 Not-Taking Ibuprofen 800 MG 1 tablet with food or milk as needed Orally every 8 hrs Not-Taking Atorvastatin Calcium 20 MG take 1 tablet by mouth every day for 30 days Orally Once a day Active methylPREDNISolone 4 MG 2 tablets with f ood or milk in the morning Oral once a day Active Plaquenil 200 MG 1 tablets with food or milk Orally once a day Active Calcium 600 MG 2 tablets with meals Orally Once a day Active Social History Tobacco Use: Social History Observation Description Date Details (start date - stop date) Never Smoker NA - NA Tobacco Use/Smoking Question Answer Notes Patient is a nonsmoker Additional Findings: Tobacco Non-User Cu rrent non-smoker, currently using no form of tobacco Alcohol Screen Question Answer Notes Did you have a drink containing alcohol in the p ast year? No Points 0 Interpretation Negative Vital Signs Blood pressure systolic 122 mm Hg 06/09/19 25 Blood pressure diastolic 60 mm Hg 025 Height 74.25 in 06/08/2024 Weight 266 lbs 06/08/2024 BMI 33.92 kg/m2 06/08/2024 weight is down 28 pounds [facility] --24 Encounters Encounter Location Date Provider Diagnosis Javed Gonzales MD [address] [place] [address] [place] [id number] 06/08/2024 Javed Gonzales Adult general medica l examination Z00.00 ; Heart murmur R01.1 ; Interstitial lung disease J84.9 ; Essential hypertension I10 ; Calcinosis E83.59 ; Hypercholesteremia E78.00 ; Colon cancer screening Z12.11 and Depression screening Z13.31 Assessments Encounter Date Diagnosis (ICD Code) Assessment Notes Treatment Notes Treatment Clinical Notes Section Notes 06/08/2024 Adult general medica l examination (ICD-10 - Z00.00) labs reviewed and discussed with patient, order faxed to [facility] dept 06/08/2024 Heart murmur (ICD-10 - R01.1) stable, will conitnue to monitor 06/08/2024 Interstitial lung disease (ICD-10 - J84.9) no complaints 06/08/2024 Essential hypertensi on (ICD-10 - I10) well controlled, will continue current regiment 06/08/2024 Calcinosis (ICD-10 - E83.59) continues to have surgery, will continue to monitor 06/08/2024 Hypercholesteremia (ICD-10 - E78.00) stale, will continue current regiment 06/08/2024 Colon cancer screeni ng (ICD-10 - Z12.11) guaiac negative 06/08/2024 Depression screening (ICD-10 - Z13.31) negative screen Plan Of Treatment Medication Medication Name Sig Start Date Stop Date Notes Albuterol Sulfate HFA 108 (9 0 Base) MCG/ACT 1 puff as needed Inhalation every 4 hrs 04/21/2024 Valsartan-hydroCHLOROthiazid e 320-12.5 MG TAKE 1 TABLET DAILY Atorvastatin Calcium 20 MG take 1 tablet by mouth every day for 30 days Orally Once a day Treatment Notes Assessment Notes Adult general medical examination labs r eviewed and discussed with patient, order faxed to [facility] dept Heart murmur stable, will conitnu e to monitor Interstitial lung disease no complaints Essential hypertension well controlled, will continue current regiment Calcinosis continues to have pitts rgery, will continue to monitor Hypercholesteremia stale, will continue current regiment Colon cancer screening guaiac negative Depression screening negative screen Pending Test Test Name Order Date ECHO 06/08/2024 Next Appt Details Follow Up: 6 Months, Reason: Provider Name:Javed goodson, 12/21/2024 08:30:00 AM, [address] [place] [address], [address], [phone], Provider Name:Javed goodson, 06/03/2025 07:30:00 AM, [address] [place] [address], [address], [phone], Provider Name:Javed goodson, 06/10/2025 08:30:00 AM, [address] [place] [address], [address], [phone], Progress Notes * Jeremías CANTOR PDOB:1965 (59 yo M)Acc No.[id number]:06/08/2024 Progress Notes Patient: Jeremías PAL Provider: Mandy Gonzales MD :1965 A ge:59 Y S ex:Male Date:06/08/2024 Address: [address], [facility], [id number] Subjective: * Chief Complaints: * A nnual visit * HPI: D epression Screening: PHQ-9 L ittle interest or pleasure in doing things N ot at all, F eeling down, depressed, or hopeless N ot at all, T rouble falling or staying asleep, or sleeping too much N ot at all, F eeling tired or having little energy N ot at all, P oor appetite or overeating N ot at all, F eeling bad about yourself or that you are a failure, or have let yourself or your family down N ot at all, T rouble concentrating on things, such as reading the newspaper or watching television N ot at all, M oving or speaking so slowly that other people could have noticed; or the opposite, being so fidgety or restless that you have been moving around a lot more than usual N ot at all, T houghts that you would be better off or of hurting yourself in some way N ot at all, T otal Score 0 . I nterpretation and Intervention D epression Screening Findings N egative, F ollow-Up for Depression : review of PHQ-9 found negative result, no follow-up needed. patient is a 59 yo male here for annual visit with review of recent labs abd follow up of chronic issues. C ommunication Needs: Communication Needs D oes the patient have a hearing impairment N o, D oes the patient have a vision impairment? Y es, I f yes, what is the vision impairment? G lasses, D oes the patient have a cognition impairment? N o. F all Risk: History H ave you had any falls with injury in the past year? N o, H ave you had two or more falls in the past year? N o. S SAUMYA Questions: SDOH Questions I n the past year have you been worried about losing housing? N o, I n the past year have you or any family members you live with been unable to get any of the following when it was really needed? Check all that apply: N one. S ymptom(s): patient is a 59 yo male here for annual visit with review of recent labs abd follow up of chronic issues. * ROS: G eneral/Constitutional: Change in appetite d enies. C hills d enies. F ever d enies. O phthalmologic: Blurred vision d enies. D ischarge d enies. P ain d enies. E NT: Decreased hearing d enies. S ore throat d enies.?Swollen glands d enies. E ndocrine: Cold intolerance d enies. E xcessive thirst d enies. H eat intolerance d enies. W eight loss d enies. R espiratory: Cough d enies. S hortness of breath at rest d enies. S hortness of breath with exertion d enies. W heezing d enies. C ardiovascular: Chest pain at rest d enies. C hest pain with exertion?denies. I rregular heartbeat d enies. S hortness of breath d enies. ? G astrointestinal: Abdominal pain d enies. C hange in bowel habits d enies. D iarrhea d enies. N ausea d enies. R ectal bleeding d enies. V omiting d enies . G enitourinary: Blood in urine d enies. D ifficulty urinating d enies. F requent urination d enies. M usculoskeletal: Painful joints d enies. W eakness d enies. ? S kin: Dry skin d enies. I tching d enies. D enies?Mole(s), changes in moles, new moles or any lesions of concern. D enies P hotosensitivity. R rodri d enies. N eurologic: Dizziness d enies. F ainting d enies. H eadache?denies. * Medical History: * Surgical History: * Hospitalization/Major Diagno stic Procedure: * Family History: F ather: 53 yrs, lung cancer, diagnosed with Cancer. M other: 65 yrs, lung cancer, diagnosed with Cancer. 2 brother(s) . 1 son(s) , 1 daughter(s) . . Father- lung cancer Mother lung cancer, Denies mental health/substance abuse family history, Denies mental health/substance abuse family history, Denies mental health/substance abuse family history. * Social History: T obacco Use: T obacco Use/Smoking P atient is a n onsmoker, A dditional Findings: Tobacco Non-User C urrent non-smoker, currently using no form of tobacco. D rugs/Alcohol: A lcohol Screen D id you have a drink containing alcohol in the past year? N o, P oints 0 , I nterpretation N egative. M iscellaneous: C affeine: yes, frequency:, 1-2 cups per day. Children: yes. Exercise: yes, walks 2 -3 times a week for half an hour. Home smoke detector use: yes. Housing: owning. Living with: family. Marital status: . Occupation: works full-time. Pets: none. Travel outside of the [place]: no. * Medications: T akingCalcium 600 MG Tablet 2 tablets with meals [...] 320-12.5 MG Tablet TAKE 1 TABLET DAILY Albuterol Sulfate HFA 108 (90 Base) MCG/ACT Aerosol Solution 1 puff as needed Inhalation every 4 hrs Taking Calcium 600 MG Tablet 2 tablets [...] MG Tablet TAKE 1 TABLET DAILY Taking Albuterol Sulfate HFA 108 (90 Base) MCG/ACT Aerosol Solution 1 puff as needed Inhalation every 4 hrs Not-Taking/PRNIbuprofen 800 MG Tablet 1 tablet with [...] puffs as needed Inhalation every 6 hrs Not-Taking/PRN Ibuprofen 800 MG Tablet 1 tablet [...] puffs as needed Inhalation every 6 hrs DiscontinuedAmoxicillin-Pot Clavulanate 875-125 MG Tablet 1 tablet Orally every 12 hrs Zithromax Z-Du 250 MG Tablet as directed Orally Once a day Medication List reviewed and reconciled with the patientDiscontinued Amoxicillin-Pot Clavulanate 875-125 MG Tablet 1 tablet Orally every 12 hrs Discontinued Zithromax Z-Du 250 MG Tablet as directed Orally Once a day Medication List reviewed and reconciled with the patient * Allergies: M orphine Sulfate: n/vGabapentin: visual disturbanceyes[Allergies Verified] Objective: * Vitals: H t: 74.25, Wt: 266, BMI:33.92, BP:122/60, Wt-k.66. weight is down 28 pounds since 12-13-23. * P ast Orders: L ab:PSA,Total (Free>4and<10) (Order Date - 06/01/2024) (Collection Date & Time - 06/01/2024 08:00 AM) Value Reference Range PSA,Total (Free>4and<10) 1.51 0.00-4.00 - ng/ mL L ab:Microalbumin, Random (Order Date - 06/01/2024) (Collection Date & Time - 06/01/2024 08:00 AM) Value Reference Range Creatinine Urine 274.70 - mg/dL Microalbumin Urine 10.0 - mg/L Microalbum Creatinine Ratio Ur 3.6 <30 - ug/ mg cr L ab:Hemoglobin A1c (Order Date - 06/01/2024) (Collection Date & Time - 06/01/2024 08:00 AM) Value Reference Range Hemoglobin A1c % 5.2 <6.0 - % Estimated Average Glucose 103 - mg/dL L ab:UA ClnCatch+Micro w/rflx Cult (Order Date - 06/01/2024) (Collection Date & Time - 06/01/2024 08:00 AM) Value Reference Range Color Urine Dark Yellow - Appearance Urine Clear - PH 6.5 5.0-9.0 - Glucose Urine UA Negative Negative - mg/dL Urine Blood Negative Negative - Specific [place] - Urine 1.025 1.005-1.025 - Urine Protein 30 (1+) A Neg-Trace - mg/dL Urine Ketones Negative Negative - mg/dL Nitrite Urine Negative Negative - Leukocyte Esterase Urine Negative Negative - RBC Urine 0-2 0-2 - /HPF WBC Urine 0-5 0-5 - /HPF Squamous Epithelial Cell Urine 0-2 0-2 - /HP F Bacteria Urine None Seen None Seen - Hyaline Casts Urine 0-2 0-2 - /LPF L ab:Comprehensive Met. Panel (Order Date - 06/01/2024) (Collection Date & Time - 06/01/2024 08:00 AM) Value Reference Range Sodium 143 135-145 - mmol/L Bilirubin Total 1.6 H 0.0-1.0 - mg/dL Aspartate Amino Transferase 32 5-37 - U/L Alanine Aminotransferase 37 0-40 - U/L Total Protein 6.3 L 6.5-8.0 - g/dL Albumin Level 4.0 3.5-5.0 - g/dL Alkaline Phosphatase 41 39-117 - U/L Potassium 3.7 3.3-5.1 - mmol/L Chloride 106 96-108 - mmol/L Carbon Dioxide 30 H 22-29 - mmol/L Anion Gap 11 L 12-20 - Blood Urea Nitrogen 14 9-16 - mg/dL Creatinine 0.72 0.5-1.4 - mg/dL Estimated Glomerular Filt Rate > 60 - Glucose Random 83 60-115 - mg/dL Calcium 9.0 8.4-10.2 - mg/dL L ab:Lipid Panel (Order Date - 06/01/2024) (Collection Date & Time - 06/01/2024 08:00 AM) Value Reference Range Triglycerides 78 <150 - mg/dL Cholesterol 143 <200 - mg/dL LDL Cholesterol Calculated 76 <100 - mg/dL HDL Cholesterol 52 >40 - mg/dL * Examination: G eneral Examination: GENERAL APPEARANCE: w ell developed, well nourished, in no acute distress. HEAD: n ormocephalic, atraumatic. EYES: p upils equal, round, reactive to light and accommodation, sclera non-icteric. EARS: n ormal. ORAL CAVITY: m ucosa moist. THROAT: c lear. NECK/THYROID: n ihsan supple, full range of motion, no cervical lymphadenopathy, no bruits. SKIN: w arm and dry, no suspicious lesions. HEART: r egular rate and rhythm, S1, S2 normal, 2/6 kourtney.? LUNGS: c lear to auscultation bilaterally. ABDOMEN: s oft, nontender, nondistended, bowel sounds present, normal, no organomegaly , no masses palpable. RECTAL EXAM: n ormal tone, no external hemorrhoids, no masses palpable, prostate normal, stool guaiac negative. MALE GENITOURINARY: c ircumcised, no testicular mass, testes descended bilaterally. EXTREMITIES: n o clubbing, cyanosis, or edema. NEUROLOGIC: n onfocal, motor strength normal upper and lower extremities, sensory exam intact. Assessment: * Assessment: 1. A dult general medical examination - Z00.00 (Primary) 2 . H eart murmur - R01.1 3 . I nterstitial lung disease - J84.9 4 . E ssential hypertension - I10 5 . C alcinosis - E83.59 6 . H ypercholesteremia - E78.00 7 . C olon cancer screening - Z12.11 8 . D epression screening - Z13.31 Plan: * Treatment: 2. H eart murmur I maging: ECHO Notes: stable, will conitnue to monitor 3. I nterstitial lung disease Continue Albuterol Sulfate HFA Aerosol Solution, 108 (90 Base) MCG/ACT, 1 puff as needed, Inhalation, every 4 hrs. Notes: no complaints 4. E ssential hypertension Continue Valsartan-hydroCHLOROthiazide Tablet, 320-12.5 MG, TAKE 1 TABLET DAILY. Notes: well controlled, will continue current regiment 5. C alcinosis Notes: continues to have surgery, will continue to monitor 6. H ypercholesteremia Continue Atorvastatin Calcium Tablet, 20 MG, take 1 tablet by mouth every day for 30 days, Orally, Once a day. Notes: stale, will continue current regiment 7. C olon cancer screening L AB: Occult Blood, Stool, Guaiac (Collection Date & Time - 06/08/2024) N egative Value Reference Range O ccult Blood, Stool, Guaiac Neg Notes: guaiac negative??8.?Depression screening? Notes: negative screen?? * Procedure Codes: 8 2270 TEST FOR BLOOD, FECES * Follow Up: 6 Months * * Sign off status: Completed true * Provider: Mandy Gonzales MD Date: 0 06/08/2024 Generated for Donavoni gudelia/Marisabel/Siri on: 1 01:37 PM EDT History and Physical Notes * HPI (History of Present Illness) Category Sub-Category Detail Notes Category Not es Symptom(s) patient is a 59 yo male here for annual visit with review of recent labs abd follow up of chronic issues Depression Screening PHQ-9 Little inte rest or pleasure in doing things: Not at all patient is a 59 yo male here for annual visit with review of recent labs abd follow up of chronic issues. Feeling down, depressed, or hopeless: No t at all Trouble falling or staying asleep, or sl eeping too much: Not at all Feeling tired or having little energy: N ot at all Poor appetite or overeating: Not at all Feeling bad about yourself o r that you are a failure, or have let yourself or your family down: Not at all Trouble concentrating on thi ngs, such as reading the newspaper or watching television: Not at all Moving or speaking so slowly that other people could have noticed; or the opposite, being so fidgety or restless that you have been moving around a lot more than usual: Not at all Thoughts that you would be b semaj off or of hurting yourself in some way: Not at all Total Score: 0 Interpretation and Intervention Depression Muna thomson Findings: Negative Follow-Up for Depression: : review of PH Q-9 found negative result, no follow-up needed SDOH Questions SDOH Questions In the past year have you been worried about losing housing?: No In the past year have you or any family members you live with been unable to get any of the following when it was really needed? Check all that apply:: None Fall Risk History Have you had any falls with injury i n the past year?: No Have you had two or more falls in the st year?: No Communication Needs Communication Needs Does the patient have a hearing impairment: No Does the patient have a vision impairmen t?: Yes If yes, what is the vision impairment?: Glasses Does the patient have a cognition impair ment?: No Examination Category Sub-Category Detail Notes Category Not es General Examination GENERAL APPEARANCE: well dev eloped, well nourished, in no acute distress HEAD: normocephalic, atrau matic EYES: pupils equal, round, reactive to light and accommodation, sclera non-icteric EARS: normal THROAT: clear NECK/THYROID: neck supple, full ra nge of motion, no cervical lymphadenopathy, no bruits HEART: regular rate and rhy thm, S1, S2 normal, 2/6 kourtney LUNGS: clear to auscultatio n bilaterally ABDOMEN: soft, nontender, non distended, bowel sounds present, normal, no organomegaly , no masses palpable NEUROLOGIC: nonfocal, motor stre ngth normal upper and lower extremities, sensory exam intact SKIN: warm and dry, no jomar picious lesions EXTREMITIES: no clubbing, cyanosi s, or edema MALE GENITOURINARY: circumcised, no test icular mass, testes descended bilaterally RECTAL EXAM: normal tone, no exte rnal hemorrhoids, no masses palpable, prostate normal, stool guaiac negative ORAL CAVITY: mucosa moist
--- OUTSIDE RECORDS SUMMARY | 2024-07-23 10:00 | XMS_ITS ---
Author Organization Javed Gonzales MD Address [address] [place], [place] [id number] Care Team Providers Care Gravel Wheeler Name Role Phone Javed Gonzales Primary Care Provider Allergies Allergen (clinical drug ingredient) Drug/Non Drug Allergy documented on EMR Reaction Allergy Type Onset Date Status Morphine Sulfate n/v Drug Allergy Active gabapentin Gabapentin (uncoded) visual disturbance Allergy Active REASON FOR VISIT follow up appt after [place] his [place]bladder [place] on 07-17-24 [place] [facility] [place] Medications Medication SIG (Take, Route, Frequency, Duration) Notes Start Date End Date Status Ibuprofen 800 MG 1 tablet with food or milk as needed Orally every 8 hrs Not-Taking Valium 2 MG 1 tablet as needed Orally twice a day for 7 days 07/04/2023 Not-Taking Diflucan 150 MG 2 tablets Orally once and repeat in oneweek for 2 days 12/21/2019 Not-Taking Ibuprofen 800 MG 1 tablet Orally Three times a day for 30 06/23/2013 Not-Taking Ventolin HFA 108 (90 Base) MCG/ACT 2 puffs as needed Inhalation every 6 hrs for 30 days 03/15/2017 Not-Taking Albuterol Sulfate HFA 108 (90 Base) MCG/ACT 1 puff as needed Inhalation every 4 hrs 04/21/2024 Active Calcium 600 MG 2 tablets with meals Orally Once a day Active Plaquenil 200 MG 1 tablets with food or milk Orally once a day Active methylPREDNISolone 4 MG 2 tablets with f ood or milk in the morning Oral once a day Active Atorvastatin Calcium 20 MG take 1 tablet by mouth every day for 30 days Orally Once a day Active Valsartan-hydroCHLOROthiazid e 320-12.5 MG 1/2 tab Active Vital Signs Blood pressure systolic 100 mm Hg 07/24/19 25 Blood pressure diastolic 56 mm Hg 025 Height 74.25 in 07/23/2024 Weight 253 lbs 07/23/2024 BMI 32.26 kg/m2 07/23/2024 weight is down 13 pounds sin ce 4-7-25 Encounters Encounter Location Date Provider Diagnosis Javed Gonzales MD [address] [place] [phone] 07/23/2024 Javed Gonzales Cholecystitis K81.9 and Essential hypertension I10 Assessments Encounter Date Diagnosis (ICD Code) Assessment Notes Treatment Notes Treatment Clinical Notes Section Notes 07/23/2024 Cholecystitis (ICD-10 - K81.9) doing great post up 07/23/2024 Essential hypertension (ICD-10 - I10) is running a little low so will cut the bp in half Plan Of Treatment Medication Medication Name Sig Start Date Stop Date Notes Valsartan-hydroCHLOROthiazide 320-12.5 MG 1/2 tab Treatment Notes Assessment Notes Cholecystitis doing great post up Essential hypertension is running a avtar le low so will cut the bp in half Next Appt Details Follow Up: 2 Months, Reason: Provider Name:Javed goodson, 12/21/2024 08:30:00 AM, [address] [place] [address], [phone], Provider Name:Javed goodson, 06/03/2025 07:30:00 AM, [address] [place] [address], [phone], Provider Name:Javed goodson, 06/10/2025 08:30:00 AM, [address] [place] [address], [phone], Progress Notes * Jeremías CANTOR PDOB:1965 (59 yo M)Acc No.[id number]:07/23/2024 Progress Notes Patient: Jeremías PAL More Provider: Mandy Gonzales MD :1965 A ge:59 Y S ex:Male Date:07/23/2024 Address: [address], [place], [id number] Subjective: * Chief Complaints: * f ollow up appt after having his gallbladder out on 07-17-24 at [facility] * HPI: S ymptom(s): patient is a 59 yo male here for follow up following recent gall bladder surgery/ had abdominal pain and had gall stones and bp dropped and they rushed him to surgery. feels fine now. not to eat foods that cause gas. * ROS: G eneral/Constitutional: Denies C hills. D enies F atigue. D enies F ever. D enies H eadache. E NT: Denies S ore throat. R espiratory: Denies C ough. D enies S hortness of breath at rest. D enies S hortness of breath with exertion. G astrointestinal: Denies D iarrhea. D enies N ausea. * Medical History: * Surgical History: * Hospitalization/Major Diagno stic Procedure: * Medications: T akingCalcium 600 MG Tablet [...] Objective: * Vitals: H t: 74.25, Wt: 253, BMI:32.26, BP:100/56, Wt-k.76. weight is down 13 pounds since 06-08-24. * Examination: G eneral Examination: GENERAL APPEARANCE: a lert, well hydrated, in no distress.? HEAD: n ormocephalic. SKIN: g ood turgor. HEART: n o murmurs, rubs, gallops, regular rate and rhythm.? LUNGS: n o wheezes, rales, rhonchi, good air movement, clear to auscultation bilaterally. ABDOMEN: s oft, nontender, nondistended, no organomegaly, no rebound tenderness. Assessment: * Assessment: 1. C holecystitis - K81.9 (Primary) 2 . E ssential hypertension - I10 ? Plan: * Treatment: 2. E ssential hypertension Continue Valsartan-hydroCHLOROthiazide Tablet, 320-12.5 MG, 1/2 tab. Notes: is running a little low so will cut the bp in half * Procedure Codes: * Follow Up: 2 Months * * Sign off status: Completed true * Provider: Mandy Gonzales MD Date: 0 07/23/2024 Generated for Anselmo galeas/Marisabel/eTransmitting on: 1 01:37 PM EDT History and Physical Notes * HPI (History of Present Illness) Category Sub-Category Detail Notes Category Not es Symptom(s) patient is a 59 yo male here for follow up following recent gall bladder surgery/ had abdominal pain and had gall stones and bp dropped and they rushed him to surgery. feels fine now. not to eat foods that cause gas. Examination Category Sub-Category Detail Notes Category Not es General Examination GENERAL APPEARANCE: alert, w ell hydrated, in no distress HEAD: normocephalic HEART: no murmurs, rubs, ga llops, regular rate and rhythm LUNGS: no wheezes, rales, r honchi, good air movement, clear to auscultation bilaterally ABDOMEN: soft, nontender, non distended, no organomegaly, no rebound tenderness SKIN: good turgor
--- OUTSIDE RECORDS SUMMARY | 2024-09-24 09:30 | XMS_ITS ---
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 Role Phone Javed Gonzales Primary Care Provider Allergies Allergen (clinical drug ingredient) Drug/Non Drug Allergy documented on EMR Reaction Allergy Type Onset Date Status Morphine Sulfate n/v Drug Allergy Active gabapentin Gabapentin (uncoded) visual disturbance Allergy Active REASON FOR VISIT 2 MO F/U Medications Medication SIG (Take, Route, Frequency, Duration) Notes Start Date End Date Status Ibuprofen 800 MG 1 tablet Orally Three times a day for 30 06/23/2013 Not-Taking Ventolin HFA 108 (90 Base) MCG/ACT 2 puffs as needed Inhalation every 6 hrs for 30 days 03/15/2017 Not-Taking Valium 2 MG 1 tablet as needed Orally twice a day for 7 days 07/04/2023 Not-Taking Diflucan 150 MG 2 tablets Orally once and repeat in oneweek for 2 days 12/21/2019 Not-Taking Ibuprofen 800 MG 1 tablet with [...] 30 days Orally Once a day Active Valsartan 80 MG 1 tablet Orally Once a day for 60 days 09/24/2024 Active Calcium 600 MG 2 tablets with meals Orally Once a day Active Vital Signs Blood pressure systolic 112 mm Hg 09/25/19 25 Blood pressure diastolic 54 mm Hg 025 Height 74.25 in 09/24/2024 Weight 244 lbs 09/24/2024 BMI 31.11 kg/m2 09/24/2024 weight is down 9 pounds [facility] e 07-23-24 Encounters Encounter Location Date Provider Diagnosis Javed Gonzales MD [address] [place] [phone] 09/24/2024 Javed Gonzales Essential hypertension I10 Assessments Encounter Date Diagnosis (ICD Code) Assessment Notes Treatment Notes Treatment Clinical Notes Section Notes 09/24/2024 Essential hypertension (ICD-10 - I10) patient verbalized understanding of change in medication Plan Of Treatment Medication Medication Name Sig Start Date Stop Date Notes Valsartan-hydroCHLOROthiazid e 320-12.5 MG 1/2 tab Valsartan 80 MG 1 tablet Orally Once a day for 60 days 09/24/2024 Treatment Notes Assessment Notes Essential hypertension patient verbalize d understanding of change in medication Next Appt Details Follow Up: 2 Months, Reason: Provider Name:Javed goodson, 12/21/2024 08:30:00 AM, [address] [place] [address], [phone], Provider Name:Javed goodson, 06/03/2025 07:30:00 AM, [address] [place] [address], [phone], Provider Name:Javed goodson, 06/10/2025 08:30:00 AM, [address] [place] [address], [phone], Progress Notes * Jeremías CANTOR PDOB:1965 (59 yo M)Acc No.[id number]:09/24/2024 Progress Notes Patient: Jeremías PAL More Provider: Mandy Gonzales MD :1965 A ge:59 Y S ex:Male Date:09/24/2024 Address: [address], [place], [id number] Subjective: * Chief Complaints: * 2 MO F/U * HPI: S ymptom(s): patient is a 59 yo male here for 2 month follow up visit/ used to eat between meals. no soda and no smacks between meals. * ROS: G eneral/Constitutional: Denies C hills. D enies F atigue. D enies F ever. D enies H eadache. E NT: Denies S ore throat. R espiratory: Denies Jose ough. D enies S hortness of breath at rest. D enies S hortness of breath with exertion. G astrointestinal: Denaundrea D iarrhea. D enies N ausea. * [...] Once a day Valsartan-hydroCHLOROthiazide 320-12.5 MG Tablet 1/2 tab Taking Calcium 600 MG Tablet 2 tablets [...] a day Taking Valsartan-hydroCHLOROthiazide 320-12.5 MG Tablet 1/2 tab Not-Taking/PRNIbuprofen 800 MG Tablet 1 tablet with [...] Medication List reviewed and reconciled with the patientNot- Taking/PRN Ibuprofen 800 MG Tablet 1 tablet with [...] Objective: * Vitals: H t: 74.25, Wt: 244, BMI:31.11, BP:112/54, Wt-k.68. weight is down 9 pounds since 07-23-24. * Examination: G eneral Examination: GENERAL APPEARANCE: a lert, well hydrated, in no distress.? HEAD: n ormocephalic. SKIN: g ood turgor. HEART: n o murmurs, rubs, gallops, regular rate and rhythm.? LUNGS: n o wheezes, rales, rhonchi, good air movement, clear to auscultation bilaterally. Assessment: * Assessment: 1. E ssential hypertension - I10 (Primary) Plan: * Treatment: * Procedure Codes: * Follow Up: 2 Months * * Sign off status: Completed true * Provider: Mandy Gonzales MD Date: 0 09/24/2024 Generated for Anselmo galeas/Marisabel/Jennyferitting on: 1 01:38 PM EDT History and Physical Notes * HPI (History of Present Illness) Category Sub-Category Detail Notes Category Not es Symptom(s) patient is a 59 yo male here for 2 month follow up visit/ used to eat between meals. no soda and no smacks between meals Examination Category Sub-Category Detail Notes Category Not es General Examination GENERAL APPEARANCE: alert, w ell hydrated, in no distress HEAD: normocephalic HEART: no murmurs, rubs, ga llops, regular rate and rhythm LUNGS: no wheezes, rales, r honchi, good air movement, clear to auscultation bilaterally SKIN: good turgor
--- OUTSIDE RECORDS SUMMARY | 2024-11-30 10:00 | XMS_ITS ---
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 Name Role Phone Javed Gonzales Primary Care Provider [phone] Allergies Allergen (clinical drug ingredient) Drug/Non Drug Allergy documented on EMR Reaction Allergy Type Onset Date Status Morphine Sulfate n/v Drug Allergy Active gabapentin Gabapentin (uncoded) visual disturbance Allergy Active REASON FOR VISIT 2 month Medications Medication SIG (Take, Route, Frequency, Duration) Notes Start Date End Date Status Ibuprofen 800 MG 1 tablet Orally Three times a day for 30 06/23/2013 Not-Taking Diflucan 150 MG 2 tablets Orally once and repeat in oneweek for 2 days 12/21/2019 Not-Taking Valium 2 MG 1 tablet as needed Orally twice a day for 7 days 07/04/2023 Not-Taking Valsartan 80 MG 1 tablet Orally Once a day for 60 days 09/24/2024 Active Ventolin HFA 108 (90 Base) MCG/ACT 2 puffs as needed Inhalation every 6 hrs for 30 days 03/15/2017 Not-Taking Ibuprofen 800 MG 1 tablet with food or milk as needed Orally every 8 hrs Not-Taking Calcium 600 MG 2 tablets with meals Orally Once a day Active Atorvastatin Calcium 20 MG take 1 tablet by mouth every day for 30 days Orally Once a day Active methylPREDNISolone 4 MG 2 tablets with f ood or milk in the morning Oral once a day Active Plaquenil 200 MG 1 tablets with food or milk Orally once a day Active Vital Signs Height 74.25 in 11/30/2024 Encounters Encounter Location Date Provider Diagnosis Javed Gonzales MD [address] [place], [place] [phone] 11/30/2024 Javed Janet Plan Of Treatment Next Appt Details Provider Name:Javed Amaor ier, 12/21/2024 08:30:00 AM, [address], [address], [place], [phone], Provider Name:Javed Amaro ier, 06/03/2025 07:30:00 AM, [address] [facility], [address], [place], [phone], Provider Name:Javed Amaro ier, 06/10/2025 08:30:00 AM, [address] [facility], [address], [place], [phone], Progress Notes * DEVAUGHN, Jeremías PDOB:1965 (59 yo M)Acc No.[id number]:11/30/2024 Progress Notes Patient: Jeremías PAL Provider: Mandy Gonzales MD :1965 A ge:59 Y S ex:Male Date:11/30/2024 Address: [address], [facility], [place] Subjective: * Chief Complaints: * 1 . 2 month. * HPI: S ymptom(s): patient is a 59 yo male here for 2 month follow up visit. * ROS: G eneral/Constitutional: Denies C hills. D enies F atigue. D enies F ever. D enies H eadache. E NT: Denies S ore throat. R espiratory: Denies C ough. D enies S hortness of breath at rest. D enies S hortness of breath with exertion. G astrointestinal: Denies D iarrhea. D enies N ausea. * Medical History: H ematuria with biopsy of bladder, endoscopy - 12/14/14 depending on biospy, repeat 3 yrs; colonoscopy done 07/06/15 - Dr. Gardner (repeat 5 years tubular adenoma):04/10/21 colonoscopy repeat 5yrs, Hx of Low HDL (under 40), Bone Density 2020 Negative. * Medications: T aking Calcium 600 MG Tablet 2 tablets with [...] days Orally Once a day , Taking Valsartan 80 MG Tablet 1 tablet Orally Once a day , Not-Taking/PRN Ibuprofen 800 MG Tablet 1 [...] puffs as needed Inhalation every 6 hrs * Allergies: M orphine Sulfate: n/v, Gabapentin: visual disturbance. Objective: * Vitals: H t: 74.25. Assessment: Plan: * Treatment: * * The named appointment provid er may or may not be the originator of this progress note, and it is not deemed complete until electronically signed by the appointment provider. Sign off status: Pending * Provider: Mandy Gonzales MD Date: 0 11/30/2024 Generated for Anselmo galeas/Marisabel/Jennyferitting on: 01:37 PM EDT History and Physical Notes * HPI (History of Present Illness) Category Sub-Category Detail Notes Category Not es Symptom(s) patient is a 59 yo male here for 2 month follow up visit
--- OUTSIDE RECORDS SUMMARY | 2024-12-15 03:00 | XMS_ITS ---
Author Organization Javed Gonzales MD Address [address] [place], [place] [phone] Care Team Providers Care Legal Support Manager Name Role Phone Javed Gonzales Primary Care Provider Results Component Value Reference Range Notes Liver Panel Reviewed date:12/15/2024 12:32:51 PM Interpretation: Performing Lab:[facility], [address] [place] [address] Notes/Report: Bilirubin Total 2.6 0.0-1.0 mg/dL Slight Icte coleen. Bilirubin Direct 0.5 0.0-0.5 mg/dL Slight Ict erus. Aspartate Amino Transferase 38 5-37 U/L Alanine Aminotransferase 34 0-40 U/L Total Protein 6.6 6.5-8.0 g/dL Albumin Level 4.3 3.5-5.0 g/dL Alkaline Phosphatase 54 39-117 U/L Lipid Panel with Reflex Reviewed date:12/15/2024 12:40:37 PM Interpretation: Performing Lab:[address] [address] Notes/Report: Triglycerides 124 <150 mg/dL Desirable Triglyceride: less than 150 mg/dL Borderline High Triglyceride 150-199 mg/dL High Triglyceride: 200-499 mg/dL Very High Triglyceride: greater than or equal to 5OO mg/dL Cholesterol 137 <200 mg/dL Desirable Cholesterol: less than 200 mg/dL Borderline High Cholesterol: 200-239 mg/dL High Cholesterol: greater than 239 mg/dL LDL Cholesterol Calculated 56 <100 mg/dL Desirable LDL: less than 100 mg/dL Near Optimal/Above Optimal LDL: 110-129 mg/dL Borderline High LDL: 130-159 mg/dL High LDL: 160-189 mg/dL Very High LDL: greater than or equal to 190 mg/dL HDL Cholesterol 57 >40 mg/dL Desirable HDL: greater than 40 mg/dL Note: This HDL assay may give artificially low results in patients with liver disease. REASON FOR VISIT fasting lipids Encounters Encounter Location Date Provider Diagnosis Javed Gonzales MD [address] [place] [address] [place] [phone] 12/15/2024 Javed Gonzales Hypercholesteremia E 78.00 Assessments Encounter Date Diagnosis (ICD Code) Assessment Notes Treatment Notes Treatment Clinical Notes Section Notes 12/15/2024 Hypercholesteremia (ICD-10 - E78.00) Plan Of Treatment Next Appt Details Provider Name:Javed goodson, 12/21/2024 08:30:00 AM, [address] [place] [address], [address], [phone], Provider Name:Javed goodson, 06/03/2025 07:30:00 AM, [address] [place] [address], [place] [address], [place], [place], [phone], Provider Name:Javed goodson, 06/10/2025 08:30:00 AM, [address] [place] [address], [place] [address], [place], [place], [phone], Progress Notes * DEVAUGHN Jeremías PDOB:1965 (59 yo M)Acc No.[id number]:12/15/2024 Progress Note Patient: Jeremías PAL Provider: Mandy Gonzales MD :1965 A ge:59 Y S ex:Male Date:12/15/2024 Address:[address], [id number] Subjective: * Chief Complaints: * 1 . Fasting lipids. * Medical History: Objective: * Vitals: Assessment: * Assessment: 1. H ypercholesteremia - E78.00 (Primary) Plan: * Treatment: * Procedure Codes: 3 6415 VENIPUNCT, ROUTINE* * * The named appointment provid er may or may not be the originator of this progress note, and it is not deemed complete until electronically signed by the appointment provider. Sign off status: Pending * Provider: Mandy Gonzales MD Date: Generated for Anselmo galeas/Marisabel/Siri on: 01:37 PM EDT
[2024-12-15 11:43] LABS: Alanine Aminotransferase 34 U/L (0-40); Albumin Level 4.3 g/dL (3.5-5.0); Alkaline Phosphatase 54 U/L (39-117); Aspartate Amino Transferase 38 U/L (5-37); Cholesterol 137 mg/dL (<200); HDL Cholesterol 57 mg/dL (>40); Total Protein 6.6 g/dL (6.5-8.0); Triglycerides 124 mg/dL (<150)
[2024-12-15 12:30] LABS: Reflex LDLD? No
--- OUTSIDE RECORDS SUMMARY | 2024-12-15 13:37 | XMS_ITS | Patient Health Record ---
Author Organization Javed Gonzales MD Address [address] [place], [place] [phone] Care Team Providers Care Racker Octave Board Name Role Phone Javed Gonzales Primary Care Provider [phone] Allergies Allergen (clinical drug ingredient) Drug/Non Drug Allergy documented on EMR Reaction Allergy Type Onset Date Status Morphine Sulfate n/v Drug Allergy Active gabapentin Gabapentin (uncoded) visual disturbance Allergy Active Results Component Value Reference Range Notes Complete Blood Count Auto Di ff Reviewed date:06/01/2024 04:34:27 PM Interpretation: Performing Lab:[facility], [address] [place] [phone] Notes/Report: White Blood Count 6.1 4.8-10.8 X10*3/uL [...] Panel Reviewed date:06/01/2024 01:52:31 PM Interpretation: Performing Lab:[address] [address] Notes/Report: Triglycerides 78 <150 mg/dL Desirable Triglyceride: [...] (Free>4and<10) Reviewed date:06/01/2024 01:41:54 PM Interpretation: Performing Lab:[address] [address] Notes/Report: PSA,Total (Free>4and<10) 1.51 0.00-4.00 ng/mL A [...] Random Reviewed date:06/01/2024 01:49:05 PM Interpretation: Performing Lab:[address] [address] Notes/Report: Creatinine Urine 274.70 Microalbumin Urine 10.0 Microalbum/Creatinine Ratio Ur 3.6 <30 ug/mg cr Albumin/Creatinine Ratio Reference Ranges: Normal: < 30 ug/mg creatinine Microalbuminuria: 30 - 300 ug/mg creatinine Clinical Albuminuria: > 300 ug/mg creatinine Hemoglobin A1c Reviewed date:06/01/2024 01:43:03 PM Interpretation: Performing Lab:[address] [address] Notes/Report: Hemoglobin A1c % 5.2 <6.0 % [...] average glucose, using the formula of the I8C-Zxdrara Average Glucose study (ADAG), Diabetes Care, Vol.31,#8, Oct. 2007 UA ClnCatch+Micro w/rflx Cul t Reviewed date:06/01/2024 01:53:58 PM Interpretation: Performing Lab:[address] [phone] Notes/Report: Urine, Clean Catch Color Urine Dark Yellow Appearance Urine Clear PH 6.5 5.0-9.0 Glucose Urine UA Negative Negative mg/dL Urine Blood Negative Negative Specific [place] - Urine 1.025 1.005-1.025 Urine Protein 30 (1+) Neg-Trace mg/dL Urine Ketones Negative Negative mg/dL Nitrite Urine Negative Negative Leukocyte Esterase Urine Negative Negative RBC Urine 0-2 0-2 /HPF WBC Urine 0-5 0-5 /HPF Squamous Epithelial Cell Urine 0-2 0-2 /HPF Bacteria Urine None Seen None Seen Hyaline Casts Urine 0-2 0-2 /LPF Liver Panel Reviewed date:12/15/2024 12:32:51 PM Interpretation: Performing Lab:[address] [address] Notes/Report: Bilirubin Total 2.6 0.0-1.0 mg/dL Slight Icte coleen. Bilirubin Direct 0.5 0.0-0.5 mg/dL Slight Ict erus. Aspartate Amino Transferase 38 5-37 U/L Alanine Aminotransferase 34 0-40 U/L Total Protein 6.6 6.5-8.0 g/dL Albumin Level 4.3 3.5-5.0 g/dL Alkaline Phosphatase 54 39-117 U/L Lipid Panel with Reflex Reviewed date:12/15/2024 12:40:37 PM Interpretation: Performing Lab:[facility], [address] [place] [phone] Notes/Report: Triglycerides 124 <150 mg/dL Desirable Triglyceride: [...] low results in patients with liver disease. SARS-CoV2/FLU/RSV Reviewed date:04/21/2024 12:25:26 PM Interpretation: Performing Lab:[address] [address] Notes/Report: Influenza A PCR NEGATIVE Negative Influenza [...] by authorized laboratories. Testing performed on the Project [employer] GeneXpert utilizing real-time RT-PCR. All SARS CoV2 and positive influenza A/B results are reported to [facility]. Occult Blood, Stool, Guaiac Reviewed date:06/08/2024 11:23:12 AM Interpretation:Negative Performing Lab: Notes/Report: Negative Occult Blood, Stool, Guaiac Neg Comprehensive Met. Panel Reviewed date:06/01/2024 01:40:27 PM Interpretation: Performing Lab:[address] [address] Notes/Report: Sodium 143 135-145 mmol/L Potassium 3.7 [...] ff Reviewed date:07/19/2024 05:41:20 PM Interpretation: Performing Lab:[address] [address] Notes/Report: White Blood Count 7.3 4.8-10.8 X10*3/uL [...] Panel Reviewed date:07/19/2024 05:41:01 PM Interpretation: Performing Lab:[facility], [address] [place] [address] Notes/Report: Sodium 140 135-145 mmol/L Potassium 4.0 [...] Panel Reviewed date:07/17/2024 12:49:15 PM Interpretation: Performing Lab:[address] [address] Notes/Report: Bilirubin Direct 0.4 0.0-0.5 mg/dL Slight Ict erus. Lipase Reviewed date:07/17/2024 12:49:06 PM Interpretation: Performing Lab:[address] [address] Notes/Report: Lipase 22 8-78 U/L Pathology Reviewed date:07/20/2024 12:28:26 PM Interpretation: Performing Lab:[address] [address] Notes/Report: --- Name: Jeremías Alonso Age/Sex: 59/M : 1965 Unit#: [id number] Attend Dr: Coy Melendez MD Re07/17/24 Status : DIS IN Location: [facility] 354-1 Disch: 07/18/24 --- SPEC : [id number] RECD : 07/17/24-1305 STATUS: ASHA GODFREY NUM: [id number] DALILA: 07/17/24-[address] [facility] [address]: Coy Melendez MD ENTERED: 07/17/24- [...] unremarkable. The pericholecystic adipose tissue is unremarkable. Wire Mesh Filter Fabricator sections are submitt ed in a cassette labeled A1 to include the margin of resection of the cystic duct. CEDS Copies To: Javed Gonzales MD [facility] [address] [address] Coy Melendez MD [facility] Sur[facility] [address] [place], [place] [id number] CONTINUED ON NEXT PAGE --- Name: Jeremías Alonso Age/Sex: 59/M : 1965 Unit#: [id number] Attend Dr: Coy Melendez MD Re07/17/24 Status : DIS IN Location: [facility] 354-1 Disch: 07/18/24 --- SPEC : [id number] RECD : 07/17/24-130 STATUS: ASHA BEKAH NUM: [id number] DALILA: 07/17/24-[address] [facility] [address]: Coy Melendez MD ENTERED: 07/17/24- 09 SP TYPE: Surgical OTHR DR: Javed Gonzales MD ORDERED: Theo Micro L3 --- Signed (signature on file) Purnima Sherwood 07/20/24 1101 --- END OF REPORT CT abdomen pelvis wo con Reviewed date:07/17/2024 12:48:57 PM Interpretation: Performing Lab: Notes/Report: [place] [address] [address] Scan Report Signed Patient: Jeremías Alonso MR#: [id number] 1 : 1965 Acct:[id number] Age/Sex: 59 / M ADM Date: 07/17/24 Loc: HO.ED Attending Dr: Ordering Physician: Bryan Goodman MD Date of Service: 07/17/24 Procedure(s): CT abdomen pelvis wo IV con Accession Number(s): [id number] cc: Javed Gonzales MD; Bryan Goodman MD Report Number: [id number]: Total DLP = 899.00 mGy-cm CLINICAL HISTORY: [...] in OV> 07/17/24335 DD/ 3 TD/TT: 07/17/24333 Community Relations Representative: [address] [address] [address] Scan Report Signed Patient: Jeremías Alonso MR#: [id number] 1 : 1965 Acct:[id number] Age/Sex: 59 / M ADM Date: 07/17/24 Loc: HO.ED Attending Dr: Ordering Physician: Bryan Goodman MD Date of Service: 07/17/24 Procedure(s): CT abdomen pelvis wo IV con Accession Number(s): [id number] cc: Javed Gonzales MD; Bryan Goodman MD Report Number: [id number]: Total DLP = 899.00 mGy-cm CLINICAL HISTORY: [...] signed by Yohan Camarillo MD in OV> 07/17/24 0336 DD/ 3 TD/TT: 07/17/24333 Community Relations Representative: US abdomen limited Reviewed date:07/17/2024 12:46:18 PM Interpretation: Performing Lab: Notes/Report: [address] [address] Ultrasound Report Signed Patient: Jeremías Alonso MR#: [id number] 1 : 1965 Acct:[id number] Age/Sex: 59 / M ADM Date: 07/17/24 Loc: HO.ED Attending Dr: Ordering Physician: Bryan Goodman MD Date of Service: 07/17/24 Procedure(s): US abdomen limited Accession Number(s): [id number] cc: Javed Gonzales MD; Bryan Goodman MD [...] Derek Stapleton MD 07/17/2024 08:14 AM EDT Dictated By: Derek Stapleton MD Signed By: <Electronically signed by Derek Stapleton MD in OV> 07/17/24 0814 DD/ 8 TD/TT: 07/17/24727 Community Relations Representative: TYE [place] [address] Ultrasound Report Signed Patient: Jeremías Alonso MR#: [id number] 1 : 1965 Acct:[id number] Age/Sex: 59 / M ADM Date: 07/17/24 Loc: HO.ED Attending Dr: Ordering Physician: Bryan Goodman MD Date of Service: 07/17/24 Procedure(s): US abdomen limited Accession Number(s): [id number] cc: Javed Gonzales MD; Bryan Goodman MD [...] Derek Stapleton MD 07/17/2024 08:14 AM EDT Dictated By: Derek Stapleton MD Signed By: <Electronically signed by Derek Stapleton MD in OV> 07/17/2414 DD/ 8 TD/TT: 07/17/24727 Community Relations Representative: TYE Marrero Reviewed date:12/15/2024 12:29:38 PM Interpretation: Performing Lab:[facility], [address] [facility], [place] [address] Notes/Report: Hold Gold See Note Specimen held untested for 24 hours; Call to request Chemistry testing. Reason For Referral No Information Medications Medication [...] with meals Orally Once a day Active Valsartan 80 MG 1 tablet Orally Once a day for 60 days 09/24/2024 Active Ventolin HFA 108 (90 Base) MCG/ACT 2 puffs as needed Inhalation every 6 hrs for 30 days 03/15/2017 Not-Taking Atorvastatin Calcium 20 MG take 1 tablet by mouth every day for 30 days Orally Once a day Active methylPREDNISolone 4 MG 2 tablets with f ood or milk in the morning Oral once a day Active Plaquenil 200 MG 1 tablets with food or milk Orally once a day Active Immunizations Vaccine Route Administration [...] Problem Status W/U Status Risk Notes Problem 062527513 Atherosclerotic heart disease of [place] coronary artery without angina pectoris (I25.10) Active confirmed Problem 127512628 Reflux esophagit is (K21.00) Active confirmed Problem 93910856 Tinnitus, left e ar (H93.12) Active confirmed Problem Bilateral tinnitus (2063228366221) Tinnitus, bilateral (H93.13) Active confirmed Problem 88096816 Essential hypertension (I10) Active confirmed Problem 34381242 RBBB (I45.10) Active confirmed Problem 443354807 History of hematuria (Z87.448) Active confirmed Problem 233742601 Interstitial sophia g disease (J84.9) Active confirmed Problem 2273971 Calcinosis (E83.59) Active confirmed Problem 346488184 Claudication (I73.9) Active confirmed Problem hypercholesterolemia (disorder) (25172491) Hypercholesteremia (E78.00) Active confirmed Problem 04533912 Testicular nodul e (N50.89) Active confirmed Problem 077809740 Chondrocalcinosi s, cause unspecified, involving multiple sites (M11.29) Active confirmed Problem 357406115 Coronary artery calcification seen on CAT scan (I25.10) Active confirmed Problem 78581729 New onset tinnit us of left ear (H93.12) Active confirmed Vital Signs Blood pressure diastolic 54 mm Hg 09/24/2024 birdie ght is down 9 pounds since 07-23-24 Height 74.25 in 09/24/2024 weight is down 9 pounds since 07-23-24 Blood pressure systolic 112 mm Hg 09/24/2024 weig ht is down 9 pounds since 07-23-24 Weight 244 lbs 09/24/2024 weight is down 9 pounds since 07-23-24 BMI 31.11 kg/m2 09/24/2024 weight is down 9 pounds since 07-23-24 Encounters Encounter Location Date Provider Diagnosis Javed Gonzales MD [address] [place] [phone] 06/01/2024 Javed Gonzales Blood tests for rout ine general physical examination Z00.00 ; Essential hypertension I10 and Hypercholesteremia E78.00 Javed Gonzales MD [address] [place] [id number] 12/15/2024 Javed Gonzales Hypercholesteremia E 78.00 Javed Gonzales MD [address] [place] [id number] 04/21/2024 Javed Gonzales Acute pneumonia J18. 9 Javed Gonzales MD [address] [place] [id number] 06/08/2024 Javed Gonzales Adult general medica l examination Z00.00 ; Heart murmur R01.1 ; Interstitial lung disease J84.9 ; Essential hypertension I10 ; Calcinosis E83.59 ; Hypercholesteremia E78.00 ; Colon cancer screening Z12.11 and Depression screening Z13.31 Javed Gonzales MD [address] [place] [id number] 07/23/2024 Javed Gonzales Cholecystitis K81.9 and Essential hypertension I10 Javed Gonzales MD [address] [place] [id number] 09/24/2024 Javed Gonzales Essential hypertensi on I10 Assessments Encounter Date Diagnosis (ICD Code) Assessment Notes Treatment Notes Treatment Clinical Notes Section Notes 06/01/2024 Blood tests for routine general physical examination (ICD-10 - Z00.00) 12/15/2024 Hypercholesteremia (ICD-10 - E78.00) 04/21/2024 Acute pneumonia (ICD-10 - J18.9) patient verbalized understanding of medication and directions for use 06/08/2024 Adult general medica l examination (ICD-10 - Z00.00) labs reviewed and discussed with patient, order faxed to [facility] CS dept 06/08/2024 Heart murmur (ICD-10 - R01.1) stable, will conitnue to monitor 07/23/2024 Cholecystitis (ICD-1 0 - K81.9) doing great post up 09/24/2024 Essential hypertension (ICD-10 - I10) patient verbalized understanding of change in medication 06/01/2024 Essential hypertension (ICD-10 - I10) 06/08/2024 [...] ARTERY SEGMENTAL MULTILEVEL 6 ECHO 06/08/2024 Comprehensive [place]. Panel Fast 5 Next Appt Details Provider Name:Javed Amaro ier, 12/21/2024 08:30:00 AM, [address], [address], [place], [phone], Provider Name:Javed Amaro ier, 06/03/2025 07:30:00 AM, [address], [address], [place], [place], [phone], Provider Name:Javed Amaro ier, 06/10/2025 08:30:00 AM, [address], [address], [place], [phone], Insurance Providers Payer Name Payer Address Payer Phone Subscriber Number Group Number Insured Name Patient Relationship to Insured Coverage Start Date Coverage End Date [facility] [address] [facility] [address] [facility] [place] [address] [id number] Jeremías Alonso Self - patient is the insured [facility] [address] [place] [address] [phone] [id number] Jeremías Alonso Self - patient is the [...]
--- OUTSIDE RECORDS SUMMARY | 2024-12-15 13:37 | XMS_ITS | Clinical Summary ---
Author Organization [address] [facility] Address [address] [place] [address] Phone Care Team Providers Care Rail Project Engineer Name Role Phone Javed Gonzalse MD Primary Care Provider Allergies Active Allergy [...] extremity 10/05/2014 IPF (idiopathic pulmonary fi brosis) ([facility] V24, [facility] V28) 03/16/2013 Hypertension 12/13/2008 Morphea 12/13/2008 Open wound of shoulder region 12/13/2008 Pneumonia 12/13/2008 Vitamin D deficiency 11/04/2008 Fasciitis 11/02/2008 Immunizations Immunization Administration Dates Next Due Influenza Quadrivalent, 0.5m [...] Health Maintenance Due Date Last Done Comments Colorectal Cancer Screening: Colonoscopy 1965 DTaP,Tdap,and Td Vaccines (1 - Tdap) 1984 Hepatitis B Vaccines (1 of 3 - 19+ 3-dose series) 1984 Pneumococcal Vaccine: 50+ Years (2 of 2 - PCV) 06/24/1996 06/25/1995 Zoster Vaccines (1 of 2) 05/11/2015 Cholesterol Screening (Lipid Panel) 02/04/2022 HIV Screening 02/04/2022 Hepatitis C Screening 02/04/2022 Social Influencers of Health Screening 02/04/2022 Hypertension/CHF/CAD Annual BMP Blood Test 01/06/2024 12/13/2022, 12/13/2022 Depression Screening 03/04/2024 COVID-19 Vaccine (3 - season) 2024 05/24/2020, 04/26/2020 Influenza Vaccine (#1) 2024 , 12/23/2001, 02/10/2001, Additional history exists RSV Immunization [...] Documents on File Type Date Recorded Patient Radiology Receptionist Expl anation Health Care Decision (hx) 12/26/2020 [...] (hx) 12/26/2020 AD SCOTT DIRECTIVE Care Teams Rail Project Engineer Relationship Specialty Start Date End Date Javed Gonzales MD PCP - General Internal Medicine 03/11/12
--- OUTSIDE RECORDS SUMMARY | 2024-12-15 13:37 | XMS_ITS | Patient Health Record ---
Author Organization [facility] Address [address] [place] [address] Care Team Providers Care Party Demonstrator Name Role Phone Javed Gonzales MD Primary Care Provider Mejia Blanton [phone] Allergies Allergen (clinical drug ingredient) Drug/Non Drug Allergy documented on EMR Reaction Allergy Type Onset Date Status Morphine Sulfate Unknown Drug Allergy Active ? [...] Problem Status W/U Status Risk Notes Problem Screening for malignant neoplasm of colon (679653193) Encounter for screening for malignant neoplasm of colon (Z12.11) Active confirmed Problem History of adenomatous polyp of colon (032265516) History of adenomatous polyp of colon (Z86.010) Active confirmed Problem Screening for malignant neoplasm of rectum (926079382) Encounter for screening for malignant neoplasm of rectum (Z12.12) Active confirmed Problem Gastroesophageal reflux disease without esophagitis (888682204) Gastroesophageal reflux disease without esophagitis (K21.9) Active confirmed Problem Preprocedural examination (321684981119335) Preprocedural examination (Z01.818) Active confirmed Problem Hiatal hernia (64774478) Hiatal hernia (K44.9) Active confirmed Problem Diverticulosis of colon (155787572) Diverticulosis of colon (K57.30) Active confirmed Plan Of Treatment Pending Test Test Name Order Date Pathology 04/10/2021 Future Test Test Name Order Date COLONOSCOPY 05/03/2015 COLONOSCOPY 01/10/2021 Insurance Providers Payer Name Payer Address Payer Phone Subscriber Number Group Number Insured Name Patient Relationship to Insured Coverage Start Date Coverage End Date [facility] [address] [facility] [place] [phone] [id number] DONY CANTOR Self - patient is the insured Medical (General) History Medical History History ICD Code HTN Pulmonary fibrosis--sees Dr. 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
--- OUTSIDE RECORDS SUMMARY | 2024-12-15 13:37 | XMS_ITS | Clinical Summary ---
Author Organization [facility] Address [address] [place] [address] Care Team Providers Care Cable Repairer Name Role Phone Javed Gonzales Primary Care Provider [phone] Allergies Active Allergy Reactions Criticality Noted Date [...] Take 1 capsule by mouth daily. Active methylPREDNISol one (MEDROL) 4 mg tabletIndicatio ns:Fibroblastic disorder TAKE 1 TABLET TWICE A DAY 180 tablet 3 01/08/2024 Active albuterol (PROAIR HFA,VENTOLIN HFA) 90 mcg inhaler SMARTSI Puff(s) Via Inhaler Every 4 Hours PRN 04/21/2024 Active atorvastatin (LIPITOR) 20 mg tablet Take 1 tablet by mouth once a day. 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 Pain of right calf 04/07/2015 Edema of left lower extremity 10/05/2014 IPF (idiopathic pulmonary fibrosis) 03/16/2013 Open Wound Of The Shoulder 12/13/2008 Hypertension 12/13/2008 Morphea 12/13/2008 Pneumonia 12/13/2008 Vitamin d deficiency 11/04/2008 Fasciitis 11/02/2008 Encounters Date Type Department Care Team Description 10/26/2024 Telephone [facility] [address] [place] [id number] Research [employer] Insights Executive: Renita Crespo Telephone Intake, Staff PAC RX Refill 10/21/2024 Refill [facility] [address] [place] [id number] [employer] Executive: Kam Gutiérrez DO from Last 3 Months [...] 67 07/03/2024 11:04 AM EDT Temperature 36.6 C (97.8 F) 07/03/2024 11:04 AM EDT Respiratory Rate - - Oxygen Saturation 95% 10/26/2013 2:59 PM EDT Inhaled Oxygen Concentration - - Weight 115.2 kg (254 lb) 07/03/2024 11:04 AM EDT Height 188 cm (6' 2 ) 07/03/2024 11:04 AM EDT Body Mass Index 32.61 07/03/2024 11:04 AM EDT Plan of Treatment Upcoming Encounters Date Type Department Care Team (Late st Contact Info) Description 01/06/2025 8:00 AM EST Follow-Up [facility] [address] [place] [address] Research & Insights Executive: Kam Gutiérrez DO [address] [facility] [address] Health Maintenance Due Date Last Done Comments [...] D[employer] of Health Maya ual Screening 03/04/2024 COVID-19 Vaccine (8 - 2024-2 6 season) 2024 11/16/2023, 12/01/2022, 12/01/2022, Additional history exists Influenza Vaccine (#1) 2024 , 12/13/2022, 11/23/2021, Additional history exists Diabetes Screening 12/13/2025 12/13/2022, 07/10/2017 RSV Vaccine (60+ years old a nd patients) (1 - 1-dose 75+ series) 2040 Zoster Vaccines Completed 12/28/2022, 09/14/2022 Procedures * Due to [facility] law, this organization might not be sharing negative HIV tests. Procedure Name Priority Date/Time Associated Diagnosis Comments BASIC METABOLIC PANEL Routine 12/13/2022 10:02 AM EDT Diffuse fasciitis from Last 3 Months or Most Recently Relevant to Health Maintenance Results * Due to [facility] law, this organization might not be sharing negative HIV tests. * (ABNORMAL) Basic Metabolic Panel (12/13/2022 10:02 AM EDT) NA 141 135 - 145 mmol/L 12/13/2022 11:20 AM EDT [facility] K 3.6 3.5 - 5.3 mmol/L 12/13/2022 11:20 AM EDT [facility] Cl 103 97 - 110 mmol/L 12/13/2022 11:20 AM EDT [facility] CO2 33(H) 24 - 32 mmol/L 12/13/2022 11:20 AM EDT [facility] BUN 13 7 - 23 mg/dL 12/13/2022 11:20 AM EDT [facility] Creatinine 0.68 0.60 - 1.30 mg/dL 12/13/2022 11:20 AM EDT [facility] Glucose 78 70 - 99 mg/dL 12/13/2022 11:20 AM T [facility] Calcium 9.5 8.7 - 10.7 mg/dL 12/13/2022 11:20 AM EDT [facility] Anion Gap 5 5 - 15 12/13/2022 11:20 AM EDT [facility] eGFR >90 >=60 mL/min/1. 73m2 12/13/2022 11:20 AM EDT [facility] Comment:The estimated glomer ular [...] MD LAB BLOOD ORDERABLES Final Resul t [facility] [address] [place] [address], from Last 3 Months or Most Recently Relevant to Health Maintenance Insurance [employer] Care Teams Cable Repairer Relationship Specialty Start Date End Date Javed Gonzales [address] [place] [address] dr Antonio Alvarez, [place]ANE[place] [id number] PCP - General 09/20/16
== END 2024-12-15 11:15 | disposition home or self-care (01) ==
LOC: HO.LNP 11:14
PROVIDERS: Visit Provider Internal Medicine
DX: E78.00 Pure hypercholesterolemia, unspecified (principal)
CPT/HCPCS: 80061; 80076